=== PATIENT | male | born 1970 | race Caucasian/White ===

== ENCOUNTER → 2016-10-23 | Outpatient (CLI) | payer MEDICARE, OTHER ==
[2014-06-26 07:43] VITALS: BP 143/93
[~2016-10-23] MED LIST: AMOX1TAB11 PO; ASPI-482 PO; CLIN-44 PO; METH5TAB2 PO; OXYC15TA PO; PANT40TA5 PO; SULF1TAB24 PO
[2016-10-23 09:47] LABS: ALBUMIN 3.4 g/dL (3.4-5.0); CALCIUM 9.4 mg/dL (8.5-10.1); CREATININE 0.8 mg/dL (0.7-1.3); GFR 104.1; POTASSIUM 3.8 mmol/L (3.5-5.1)
[2016-10-23 09:51] LABS: BASO # 0.2 x10^3/uL (0.0-0.2); BASO % 1 % (0-3); EOS % 2 % (0-3); HEMATOCRIT 47.5 % (39.0-53.0); LYMPH % 29 % (24-48); MEAN CORPUSCULAR HEMOGLOBIN 31 pg (25-35); MEAN CORPUSCULAR HGB CONC 34 g/dL (31-37); MEAN CORPUSCULAR VOLUME 92 fL (79-100); MONO % 5 % (0-9); NEUT % 63 % (31-73); PLATELET COUNT 361 x10^3/uL (140-400); RED BLOOD COUNT 5.16 x10^6/uL (4.30-5.70); RED CELL DISTRIBUTION WIDTH 14.5 % (11.5-14.5)
[2016-10-23 10:58] LABS: BILIRUBIN,URINE NEGATIVE (NEG); GLUCOSE,URINE >=1000 mg/dL (NEG); NITRITE,URINE NEGATIVE (NEG); PROTEIN,URINE NEGATIVE (NEG-TRACE); UROBILINOGEN,URINE 0.2 mg/dL (0.2 mg/dL)
[2016-10-23 11:20] LABS: BACTERIA,URINE 0 /HPF (0-FEW); RBC,URINE 0 /HPF (0-2); WBC,URINE OCC /HPF (0-4)
[2016-10-23 12:40] LABS: % EOS 4 % (0-5)
[2016-10-23 12:41] LABS: PLT ESTIMATE ADEQUATE (ADEQUATE)
--- NOTE | 2016-10-23 12:43 | EKG ---
[facility] [address] [place] [address] Test Date: 2016-10-23 Test Time: 12:37:54 Pat Name: NICO TRAN Department: Room: Gender: M [employer] Pricer: : 1970 Requested By: NICO DAVIS Order Number: [id number] Reading MD: Measurements Intervals Sawyer Rate: 62 P: 26 NM: 150 QRS: 9 QRSD: 88 T: 59 QT: 384 QTc: 392 Interpretive Statements SINUS RHYTHM QRS(T) CONTOUR ABNORMALITY CONSIDER ANTEROSEPTAL MYOCARDIAL DAMAGE POSSIBLY ABNORMAL ECG RI6.01 No previous ECG available for comparison
--- NOTE | 2016-10-23 17:05 | RAD ---
PA and lateral chest radiographs 10/23/2016 Clinical history: Preoperative evaluation prior to knee replacement. PA and lateral digital radiographs of the chest were obtained. Comparison study is dated 06/07/2014. The cardiac silhouette is normal in size. The thoracic aorta is minimally tortuous. A 6 mm granuloma is seen involving the right midlung, unchanged. No acute pulmonary infiltrate is noted. No pneumothorax or pleural effusion is seen. Degenerative changes are seen involving the thoracic spine. Impression: No acute abnormality is seen.
== END | disposition home or self-care (01) ==
LOC: SURGPAT 12:15
PROVIDERS: ATTEND Orthopaedic Surgery
DX: Z01.818 Encounter for other preprocedural examination (principal); Z87.891 Personal history of nicotine dependence
CPT/HCPCS: 36415; 71020; 80048; 81001; 82040; 85007; 85027; 85610; 85651; 85730; 93005

== ENCOUNTER 2016-11-14 07:10 | Inpatient (IN) | payer MEDICARE, OTHER ==
[~2016-11-14] VITALS: Ht 188 cm; Wt 124.7 kg
[~2016-11-14 07:10] MED LIST changes: -CLIN-44 PO; +CLIN150C14 PO
[2016-12-25] MEDS ORDERED: METF500T4 PO (14:47)
[2016-12-25] MEDS ORDERED: PIOG15TA42 PO (14:47)
[2016-12-25] MEDS ORDERED: CANA300T PO (14:48)
[2016-12-25] MEDS ORDERED: FERR-26 PO (14:49)
--- NOTE | 2017-01-08 13:25 | PDOC1 ---
History and Physical Date of Admission Date of Admission DATE: 01/09/17 Identification/Chief Complaint Chief Complaint Right knee pain Problems: Source Source: Chart review History of Present Illness History of Present Illness The patient is a 46 year old male with right knee osteoarthritis pain, unrelieved with nonoperative treatment. He reports he slipped while moving things for his job on 12/06/16. The pain is in the back of his knee and he rates his pain 7/10. The pain is worsened with contact. He is using crutches to ambulate. He reports difficulty with straightening his leg. He was last seen in the clinic on 10/09/16 to discuss total knee arthroplasty and reported that he stopped smoking. Past Medical History Past Medical History bilateral wrist fracture Cardiovascular: No pertinent hx Pulmonary: No pertinent hx CENTRAL NERVOUS SYSTEM: Other GI: No pertinent hx Heme/Onc: No pertinent hx Hepatobiliary: No pertinent hx Psych: No pertinent hx Musculoskeletal: Other Rheumatologic: No pertinent hx Infectious disease: No pertinent hx Renal/: No pertinent hx Endocrine: Hypothyroidism Past Surgical History Past Surgical History multiple knee surgeries, partial kidney removal, splenectomy, left eye tear duct repair, bone graft of left wrist Past Surgical History: Tonsillectomy, Other Family History Family History: Coronary Artery Disease, Heart Disease Social History Smoke: Quit (09/13/16) ALCOHOL: occassional Drugs: None, Marijuana Current Medications Current Medications Active Scripts Active Reported Ferrous Sulfate 325 Mg Tablet 1 Tab PO DAILY Invokana (Canagliflozin) 300 Mg Tablet 300 Mg PO DAILY Actos (Pioglitazone Hcl) 15 Mg Tablet 1 Tab PO DAILY Metformin Hcl 500 Mg Tablet 500 Mg PO BIDWMEALS Oxycodone Hcl 15 Mg Tablet 20 Mg PO BID Methadone Hcl 5 Mg Tablet 20 Mg PO QID Allergies Allergies: Coded Allergies: ibuprofen (Verified Allergy, Intermediate, urinary retention,swelling, 07/01) Physical Exam General: Alert, Oriented X3, Cooperative, No acute distress HEENT: Atraumatic, EOMI Lungs: Normal air movement Heart: RRR Abdomen: Soft Extremities: No clubbing, No cyanosis, Normal pulses, Other (RIGHT KNEE: Unable to bear weight. There is varus alignment. No masses except for palpable osteophytes. No detectable effusion. Tenderness on the joint lines. Range of motion is 10-80 degrees. There is crepitus with range of motion, and pain at the extremes of motion. The knee is stable to varus and valgus stress without subluxation or laxity. Muscle strength is normal (5/5) for quadriceps and hamstrings, and muscle tone is normal. The skin shows multiple surgical scars including a Y shaped scar converging over the knee and at risk of skin necrosis. This scar includes a long medial parapatellar arthrotomy scar, and another scar extending onto the leg. No rashes or lesions. Light touch sensation is decreased near the incisions. No edema and no varicosities. Dorsalis pedis pulse is intact and capillary refill is normal.) Skin: No rashes, No breakdown, No significant lesion Neuro: Normal speech, Sensation intact Psych/Mental Status: Mental status NL, Mood NL VTE Prophylaxis Ordered VTE Prophylaxis Devices: Yes VTE Pharmacological Prophylaxi: Yes Assessment/Plan Assessment/Plan His knee is now swollen and locked up, possibly with a loose body or other progression of his osteoarthritis and posttraumatic osteoarthritis. We had been holding off on his total knee arthroplasty, to try to get his A1c lower. It was greater than 10 initially. He has been very faithful about controlling his blood sugars and said his blood sugar this morning was 105. He has also stopped smoking as we requested. At this point, I think the best course of action would be to move his total knee arthroplasty up a month or so, so that we can get his knee moving again. Other options would include simply doing a knee scope currently to unlock his knee, but that seems like a waste of resources if we are going to do a knee replacement in a month anyway. Dr. Pitts recommended moving his total knee arthroplasty to January 09, and simply allowing the knee to remain without any aggressive treatment for the current locking and effusion. We will recheck his hemoglobin A1c preoperatively but it is unlikely we will delay his surgery for that alone, and hopefully the A1C is closer to 7 now. He has been taking methadone and oxycodone for pain which will be a risk factor for increased postoperative pain. We discussed the potential risks of infection , neurovascular injury, bleeding, blood clots, need for revision surgery, or other potential surgical or anesthetic complications. JERALD ASKEW Jan 08, 2017 13:25
[2017-01-08] MEDS ORDERED: IV RINGERS,LACTATED 1000ML 1,000 ML IV SCH (19:44)
[2017-01-08] MEDS ORDERED: MEPERIDINE PF 25 MG/ML VIAL. IV PRN (19:45)
[2017-01-08] MEDS ORDERED: MORPHINE SULFATE 4 MG/ML DISP.SYRIN. IV PRN (19:45)
[2017-01-08] MEDS ORDERED: LIDOCAINE 1% 1 ML SYRINGE. ID PRN (19:45)
[2017-01-08] MEDS ORDERED: fentaNYL PF VIAL 100 MCG/2 ML VIAL IV PRN ×3 (19:45)
[2017-01-08] MEDS ORDERED: MIDAZOLAM HCL/PF 2 MG/2 ML VIAL. IV PRN ×2 (19:45)
[2017-01-08] MEDS ORDERED: PROCHLORPERAZINE 10 MG/2 ML VIAL. IV PRN (19:45)
[2017-01-08] MEDS ORDERED: diphenhydrAMINE 50 MG/ML VIAL IV PRN (19:45)
[2017-01-09] MEDS ORDERED: TRANEXAMIC ACID 1,000 MG in IV NS 50ML -- 1ST BAG INJ ONE (06:00)
[2017-01-09] MEDS ORDERED: BACITRACIN 50,000 UNIT in IV NORMAL SALINE 1000ML BAG 1,000 ML IRR ONE (06:00)
[2017-01-09] MEDS ORDERED: HYDROcodone/APAP 7.5/325MG 1 TAB TABLET PO PRN ×2 (06:00→19:15)
[2017-01-09] MEDS ORDERED: TRANEXAMIC ACID 1,000 MG in IV NS 50ML -- 2ND BAG INJ ONE (08:00)
[2017-01-09] MEDS ORDERED: fentaNYL PF VIAL 250 MCG/5 ML VIAL ONE (14:32)
[2017-01-09] MEDS ORDERED: ONDANSETRON PF 4 MG/2 ML VIAL. ONE (14:32)
[2017-01-09] MEDS ORDERED: LIDOCAINE 2% PF Vial for OR 5 ML VIAL. ONE (14:32)
[2017-01-09] MEDS ORDERED: DEXAMETHASONE SOD PHOS 20 MG/5 ML VIAL. ONE (14:32)
[2017-01-09] MEDS ORDERED: PROPOFOL 20 ML IV ONE (14:32)
[2017-01-09] MEDS ORDERED: ROCURONIUM 100 MG/10 ML VIAL. ONE (14:33)
[2017-01-09] MEDS ORDERED: MIDAZOLAM HCL/PF 2 MG/2 ML VIAL. ONE (14:49)
[2017-01-09] MEDS ORDERED: TOBRAMYCIN POWDER 1.2 GM VIAL. ONE (16:00)
[2017-01-09] MEDS ORDERED: VANCOMYCIN 1 GM VIAL. ONE (16:00)
[2017-01-09] MEDS ORDERED: KETAMINE HCL 500 MG/10 ML VIAL. ONE (16:55)
[2017-01-09] MEDS ORDERED: fentaNYL PF VIAL 100 MCG/2 ML VIAL ONE (18:46)
[2017-01-09] MEDS ORDERED: SEVOFLURANE > 120 MINUTES. IH ONE (19:12)
[2017-01-09] MEDS: IV DEXTROSE 5 %-0.45 % NACL 1,000 ML IV SCH (19:14)
[2017-01-09] MEDS ORDERED: PROCHLORPERAZINE 5 MG TABLET. PO PRN (19:15)
[2017-01-09] MEDS ORDERED: oxyCODONE/APAP 5/325 1 TAB TABLET PO PRN (19:15)
[2017-01-09] MEDS ORDERED: HYDROcodone/APAP 10/325 1 TAB TABLET PO PRN (19:15)
[2017-01-09] MEDS ORDERED: CALCIUM CARBONATE 500 MG TAB.CHEW PO PRN (19:15)
[2017-01-09] MEDS ORDERED: fentaNYL PF VIAL 100 MCG/2 ML VIAL IV PRN ×2 (19:15→19:45)
[2017-01-09] MEDS ORDERED: ACETAMINOPHEN 325 MG TABLET. PO PRN (19:15)
[2017-01-09] MEDS ORDERED: MORPHINE SULFATE 4 MG/ML DISP.SYRIN. IV PRN ×2 (19:15)
[2017-01-09] MEDS ORDERED: oxyCODONE/APAP 7.5/325 1 TAB TABLET PO PRN (19:15)
[2017-01-09] MEDS ORDERED: ZOLPIDEM 5 MG TABLET. PO PRN (19:15)
[2017-01-09] MEDS ORDERED: 0.9 % SODIUM CHLORIDE 10 ML DISP.SYRIN. IV PRN (19:15)
[2017-01-09] MEDS ORDERED: DEXTROSE 50% 25 GM / 50ML DISP.SYRIN. IV PRN (19:15)
[2017-01-09] MEDS ORDERED: MORPHINE SULFATE 2 MG/ML DISP.SYRIN. IV PRN (19:15)
[2017-01-09] MEDS ORDERED: METOCLOPRAMIDE HCL 10 MG/2 ML VIAL. IV PRN (19:15)
[2017-01-09] MEDS ORDERED: diphenhydrAMINE 50 MG/ML VIAL IV PRN (19:15)
[2017-01-09] MEDS ORDERED: PROCHLORPERAZINE 10 MG/2 ML VIAL. IV PRN (19:15)
[2017-01-09] MEDS ORDERED: MORPHINE SULFATE 10 MG/ML VIAL. IV PRN (19:15)
[2017-01-09] MEDS: HYDROmorphone 2 MG/ML VIAL IV PRN ×4 (19:20→19:50)
[2017-01-09] MEDS ORDERED: ROPIVacaine 0.5% PF 30 ML VIAL. ONE (19:25)
--- NOTE | 2017-01-09 19:38 | PDOC4 ---
Operative Note Operative Note Date of Procedure: January 09, 2017 Pre-Op Diagnosis: Posttraumatic osteoarthritis right knee Post-Op Diagnosis: Posttraumatic osteoarthritis right knee Procedure: right total knee arthroplasty with hardware removal Surgeon: Nico Pitts MD Encapsulator: Karin Kessler PA-C Anesthesia: General EBL: 250 mL Specimens Obtained: right knee bone and soft tissue Complications: none Implant Company: [employer] Drains: Hemovac plus pain catheter Tourniquet time: 85 Minutes Tourniquet Pressure: 350 mm Hg Indications for Procedure: Arthritis pain unrelieved by nonoperative management. This 46-year-old had a knee injury when he was approximately 18 years old playing baseball. He has had numerous surgeries previously and now has severe posterior medical osteoarthritis with loss of motion, malalignment and severe mechanical difficulties Findings: Severe osteoarthritis with bone on bone contact in all three compartments, and retained hardware with posttraumatic arthropathy Notes: much more complex surgery than usual. Multiple retained previous hardware screws to be removed.abundant scar tissue. The procedure was much longer than usual, more than 50% increased operating time than typical. I did 2 prior knee replacements today with tourniquet times of 50 minutes and 51 minutes , but this complex knee surgery had a tourniquet time of 85 minutes. 85/50 = 1.7 Implants used: Size 6 right bicruciate stabilized Journey II BCS oxinium femoral component, size 7 right Journey nonporous tibial baseplate, size 7-8 21 mm constrained right Journey II BCS XLPE articular insert, 41 mm oval Gali II resurfacing patellar component Procedure in Detail: The patient was identified in the preoperative holding area, and the correct right extremity was marked by me. The patient was taken to the operating room where the patient was anesthetized by the Department of Anesthesia. Preoperative antibiotics were given intravenously. Tranexamic acid 1 g was given intravenously for intraoperative hemostasis. A "time-out" procedure was performed. The patient was positioned supine on the operative table with a tourniquet on the upper thigh. The limb was thoroughly prepped and draped in sterile fashion. An impervious stockinet and adhesive drape were used such that the skin was entirely covered. An Rosas leg chan was used. The operating team wore personal exhaust-ventilated hoods. The tourniquet was inflated to 350 mm Hg. A midline skin incision was made with a scalpel using the patella and tibial tubercle as landmarks. Electrocautery was used for hemostasis. My household assistant used rake retractors. His previous curvilinear medial parapatellar arthrotomy skin incision was used with extension into the distal quadriceps tendon. This curvilinear incision is not ideal but the midline incision that I typically use would cause a skin bridge and be at risk of skin necrosis. The patella was retracted laterally and Hohmann retractors were now used by my household assistant. Excess synovium, the menisci, and the cruciate ligaments were resected sharply. The patella was assessed and excess synovium and osteophytes around the patellar articulation were removed. The patella was measured with a caliper, cut freehand with a saw using caliper measurements, sized, and then drilled for an oval three-pegged patella component. Periarticular injection was used in the suprapatellar pouch and distal quadriceps muscle. Whitesides's line was assessed on the femur. An intra-medullary 5 degree cutting guide was pinned to the femur, and a distal femoral cut was made with an oscillating saw. An additional 4 mm resection was used due to the deep femoral sulcus, and deficient femoral condyle.My household assistant held Hohmann retractors and an [facility] retractor to protect the medial and lateral collateral ligaments, the patellar tendon, the skin and the other soft tissues. An anterior referencing guide was applied with external rotation of 3 to match Whitesides line. A 5-in-1 Journey II cutting guide was then applied and pinned to the femur. The posterior, anterior, and all chamfer cuts were made with the oscillating saw. An extramedullary guide was pinned to the tibia and rotational alignment and the planned resection thickness assessed. An external alignment leif was used to verify the planned cut in the varus-valgus plane and regarding posterior slope referencing the tibial tubercle, the tibial shaft, the ankle joint, and the second metatarsal. The upper tibia was cut made with an oscillating saw. At this point the saw hit one of the retained tibial interference screwsfrom prior surgery. I was unable to complete the cut.I removed the cutting guide, and used osteotomes and drills to expose the screw head. The screw nearly stripped, until I loosened it by drilling parallel to the screw and next to it. The screw was able to finally be removed. I reapplied the tibial guide and was able to complete the tibial cut. Throughout the performance of the tibial cut, my household assistant held Hohmann retractors and a posterior cruciate ligament retractor to protect the medial and lateral collateral ligaments, the patellar tendon, the skin, the peroneal nerve and the other soft tissues. The upper tibia was sized with a trial baseplate. The posterior compartment was cleared of osteophytes and loose bodies, and posterior capsule released. An extremely large posterior loose body was removed, approximately 10 cm in diameter. Charissa- articular injection was used in the posterior compartment. The box cut for a posterior stabilized component was started, and then I encountered another of the previous interference screws. The box cutting instruments were removed. rongeurs and osteotomes were used to expose the screw head. Thefemoral interference screw was removed with a screwdriver. The box cutting instruments were now reapplied. The box cut was completed. A preliminary reduction was performed with a trial femur, trial tibial baseplate and trial polyethylene. Soft-tissue balancing was now performed, and extension and rotation of the alignments was checked using a guide leif in the tibial trial and a guide pin in the femur. A medial release was required, using a 10 blade scalpel, and a Crawford elevator to elevate the medial structures from the upper medial tibia. The stability was assessed using different thicknesses of tibial articular surface to find satisfactory stability and good range of motion. The rotation of the tibial component was marked on the upper tibia. Final trial reduction was now performed verifying patella tracking and tibiofemoral stability and alignment.a lateral patellar release was required. The tibia preparation was completed with a drill, saw, and fin punch at the previously noted rotation. The final implants were verified and opened. Outer gloves were changed by the operating team. The bone cuts were washed thoroughly with the [employer] InterPulse device and dried. Two packages of Palacos bone cement were mixed in powdered form with 1 gm of Vancomycin and 1.2 g tobramycin, then vacuum-mixed with the monomer, and placed into a cement gun. The cut surfaces of the bone were thoroughly dried with Mendoza-tip suction and with laparotomy sponges for cement interdigitation. The final components were cemented into place. The knee was kept at full extension while the cement hardened, and excess cement was removed. Tranexamic acid 1 g was redosed intravenously for additional intraoperative hemostasis. A final periarticular injection was used for pain relief. The tourniquet was released, and electrocautery was used for hemostasis. A final check of [id number] and stability was made, and the polyethylene implant final size was chosen. The polyethylene implant was secured to the tibial baseplate, and the knee was reduced a final time. Thorough irrigation was used. A pain catheter was inserted. The arthrotomy was closed with interrupted [id number] #1 PDS suture. The arthrotomy incision was then run with #1 STRATAFIX Symmetric PDS Plus Knotless suture. The subcutaneous tissues were closed with #2-0 Vicryl by my household assistant. The skin was reapproximated with STRATAFIX Spiral MONOCRYL Plus Knotless suture by my household assistant. The skin incision was then covered and reinforced with Dermabond Prineo mesh skin closure dressing, following the curvilinear prior scar. A bulky sterile gauze dressing was applied. Needle and sponge counts were correct. NICO PITTS MD Jan 09, 2017 19:38
[2017-01-09 20:30] VITALS: BP 144/93
[2017-01-09 21:00] VITALS: BP 139/95
[2017-01-09 21:30] VITALS: BP 144/79
[2017-01-09] MEDS: oxyCODONE IR 5 MG TABLET PO PRN (21:32)
[2017-01-09] MEDS: ASPIRIN ENTERIC COATED 325 MG TABLET.DR. PO SCH (21:55)
[2017-01-09 22:00] VITALS: BP 155/91
[2017-01-09 23:00] VITALS: BP 144/94
[2017-01-09] MEDS: fentaNYL PF VIAL 100 MCG/2 ML VIAL IV PRN (23:24)
[2017-01-10 00:10] VITALS: BP 124/76
[2017-01-10] MEDS: oxyCODONE IR 5 MG TABLET PO PRN ×5 (01:26→20:30)
[2017-01-10] MEDS: fentaNYL PF VIAL 100 MCG/2 ML VIAL IV PRN (03:39)
[2017-01-10 03:42] VITALS: BP 130/82
[2017-01-10 04:55] LABS: HEMATOCRIT 39.1 % (39.0-53.0); HEMOGLOBIN 12.9 g/dL (13.0-17.5); RED BLOOD COUNT 4.21 x10^6/uL (4.30-5.70); RED CELL DISTRIBUTION WIDTH 14.5 % (11.5-14.5); WHITE BLOOD COUNT 25.4 x10^3/uL (4.0-11.0)
[2017-01-10] MEDS: IV DEXTROSE 5 %-0.45 % NACL 1,000 ML IV SCH (05:14)
[2017-01-10] MEDS ORDERED: MAGNESIUM HYDROXIDE 2,400 MG/30 ML ORAL.SUSP. PO PRN (06:00)
--- NOTE | 2017-01-10 07:16 | RAD ---
Indication: Right knee replacement surgery. Time of exam 1950 hours. 2 views of the right knee demonstrate postop changes of total knee arthroplasty. The prosthetic elements appear to be in good position. No fracture or loosening is seen. There appear to be prior postop changes of ACL repair. There are overlying surgical drains noted. Impression: Satisfactory postop appearance to the right knee.
[2017-01-10] MEDS: SENNOSIDES/DOCUSATE 8.6/50MG TABLET. PO SCH (07:51)
[2017-01-10] MEDS: METHADONE 10 MG TABLET. PO SCH ×4 (07:51→20:29)
[2017-01-10] MEDS: FERROUS SULFATE 325 MG TABLET. PO SCH ×2 (07:52→16:24)
[2017-01-10] MEDS: MULTIVITAMIN with MINERAL TABLET. PO SCH (07:52)
[2017-01-10] MEDS: CELECOXIB 200 MG CAPSULE. PO SCH ×2 (07:52→20:29)
--- NOTE | 2017-01-10 08:13 | PDOC ---
GENERAL General: seen and examined. awake and alert. pain manageable. nv right leg intact. hasn' t been up on knee yet but got out of surgery late. chest clear and heart regular and abdomen benign. wbc up to 25K this am. sugars good so far. continue same. Problems: VITAL SIGNS Vital Signs: Vital Signs Date Time Temp Pulse Resp B/P (MAP) Pulse Ox O2 Delivery O2 Flow Rate FiO2 01/10/17 07:51 16 Room Air 01/10/17 03:42 98.4 67 130/82 (98) 98 98.4 01/09/17 20:30 2.0 I & O I & O Intake and Output 01/10/17 06:59 Intake Total 4450 ml Output Total 3960 ml Balance 490 ml Intake Oral 2600 ml IV Total 1850 ml Output Urine Total 3600 ml Drainage Total 110 ml Estimated Blood Loss 250 ml ALLERGIES Allergies: Allergies Coded Allergies Type Severity Reaction Last Updated Verified ibuprofen Allergy Intermediate urinary retention,swelling 01/10/17 Yes MEDS Medications: Current Medications Medications (Trade) Dose Ordered Sig/Casper Start Time Stop Time Status Last Admin Dose Admin Acetaminophen (Tylenol) 650 mg PRN Q4HRS PRN 01/09/17 19:15 Acetaminophen/ Hydrocodone Bitart (Lortab 10/325) 1 tab PRN Q3HRS PRN 01/09/17 19:15 01/10/17 00:36 1 TAB Acetaminophen/ Hydrocodone Bitart (Lortab 7.5/325) 1 tab PRN Q3HRS PRN 01/09/17 19:15 Aspirin (Ecotrin) 325 mg BID 01/09/17 21:00 01/09/17 21:55 325 MG Bacitracin 82837 unit/Sodium Chloride 1,000 ml @ 1,000 mls/hr 1X PERIOP ONCE 01/09/17 06:00 01/09/17 06:59 DC Bisacodyl (Dulcolax Supp) 10 mg 1X PRN PRN 01/10/17 16:00 01/11/17 15:59 Calcium Carbonate/ Glycine (Tums) 500 mg PRN QID PRN 01/09/17 19:15 Cefazolin Sodium 3 gm/Sodium Chloride 100 ml @ 200 mls/hr Q6H 01/09/17 22:00 01/10/17 10:29 01/10/17 04:00 200 MLS/HR Cefazolin Sodium/ Dextrose 50 ml @ 100 mls/hr 1X PREOP PRN 01/09/17 06:00 01/09/17 18:00 DC 01/09/17 16:21 100 MLS/HR Celecoxib (CeleBREX) 200 mg BID 01/10/17 09:00 01/10/17 07:52 200 MG Dexamethasone Sodium Phosphate (Decadron) 20 mg STK-MED ONCE 01/09/17 14:32 01/09/17 14:33 DC Dextrose (Dextrose 50%-Water Syringe) 12.5 gm PRN Q15MIN PRN 01/09/17 19:15 Dextrose/Sodium Chloride 1,000 ml @ 100 mls/hr Q10H 01/09/17 19:14 01/09/17 19:14 100 MLS/HR Diphenhydramine HCl (Benadryl) 25 mg PRN Q6HRS PRN 01/09/17 19:15 Fentanyl Citrate (Fentanyl 2ml Vial) 75 mcg PRN Q1HR PRN 01/09/17 19:45 Fentanyl Citrate (Fentanyl 5ml Vial) 250 mcg STK-MED ONCE 01/09/17 14:32 01/09/17 14:33 DC Ferrous Sulfate (Feosol) 325 mg BIDWMEALS 01/10/17 08:00 01/10/17 07:52 325 MG Hydromorphone HCl (Dilaudid) 0.4 mg PRN Q10MIN PRN 01/08/17 19:45 01/09/17 22:00 DC 01/09/17 19:50 0.5 MG Ketamine HCl 500 mg STK-MED ONCE 01/09/17 16:55 01/09/17 16:56 DC Ketorolac Tromethamine 30 mg/Bupivacaine HCl 20 ml/ Epinephrine HCl 0.5 mg/ Miscellaneous 43 ml @ 258 mls/hr Q12H 01/10/17 06:00 01/10/17 18:09 Lidocaine HCl (Lidocaine Pf 2% Vial) 5 ml STK-MED ONCE 01/09/17 14:32 01/09/17 14:33 DC Magnesium Hydroxide (Milk Of Magnesia) 2,400 mg 1X PRN PRN 01/10/17 06:00 01/11/17 05:59 Meperidine HCl (Demerol) 12.5 mg PRN Q5MIN PRN 01/08/17 19:45 01/09/17 22:00 DC Metformin HCl (Glucophage) 500 mg BIDWMEALS 01/10/17 08:30 Methadone HCl (Dolophine) 20 mg QID 01/10/17 09:00 01/10/17 07:51 20 MG Metoclopramide HCl (Reglan) 10 mg PRN Q4HRS PRN 01/09/17 19:15 Midazolam HCl (Versed) 2 mg STK-MED ONCE 01/09/17 14:49 01/09/17 14:50 DC Morphine Sulfate 8 mg PRN Q1HR PRN 01/09/17 19:15 Morphine Sulfate 5 mg/Ropivacaine 60 ml/Epinephrine HCl 0.5 mg/Sodium Chloride 99 ml @ 99 mls/hr 1X PERIOP ONCE 01/09/17 06:00 01/09/17 06:59 DC 01/09/17 16:50 Multivitamins (Thera M Plus) 1 tab DAILY 01/10/17 09:00 01/10/17 07:52 1 TAB Non-Formulary Medication 300 mg DAILY 01/10/17 09:00 UNV Ondansetron HCl (Zofran) 4 mg STK-MED ONCE 01/09/17 14:32 01/09/17 14:33 DC Oxycodone HCl (Roxicodone) 20 mg PRN Q4HRS PRN 01/09/17 16:00 01/10/17 07:51 20 MG Oxycodone/ Acetaminophen (Percocet 5/325) 1 tab PRN Q3HRS PRN 01/09/17 19:15 Oxycodone/ Acetaminophen (Percocet 7.5/ 325) 1 tab PRN Q3HRS PRN 01/09/17 19:15 Pioglitazone HCl (Actos) 15 mg DAILY 01/10/17 09:00 Prochlorperazine Edisylate (Compazine) 10 mg PRN Q4HRS PRN 01/09/17 19:15 Prochlorperazine Maleate (Compazine) 10 mg PRN Q4HRS PRN 01/09/17 19:15 Propofol 20 ml @ As Directed STK-MED ONCE 01/09/17 14:32 01/09/17 14:33 DC Ringer's Solution 1,000 ml @ 125 mls/hr Q8H 01/08/17 19:44 01/09/17 07:43 DC 01/09/17 14:43 125 MLS/HR Rocuronium [place] (Zemuron) 100 mg STK-MED ONCE 01/09/17 14:33 01/09/17 14:34 DC Ropivacaine (Naropin 0.5%) 30 ml STK-MED ONCE 01/09/17 19:25 01/09/17 19:26 DC Senna/Docusate Sodium (Senna Plus) 1 tab DAILY 01/10/17 09:00 01/10/17 07:51 1 TAB Sevoflurane (Ultane) 90 ml STK-MED ONCE 01/09/17 19:12 01/09/17 19:13 DC Sodium Chloride (Normal Saline Flush) 10 ml QSHIFT PRN 01/09/17 19:15 Tobramycin Sulfate 1.2 gm STK-MED ONCE 01/09/17 16:00 01/09/17 16:01 DC 01/09/17 16:50 1.2 GM Tranexamic Acid 1000 mg/Sodium Chloride 60 ml @ 60 mls/hr 1X PERIOP ONCE 01/09/17 08:00 01/09/17 08:59 DC 01/09/17 18:14 60 MLS/HR Vancomycin HCl 1 gm STK-MED ONCE 01/09/17 16:00 01/09/17 16:01 DC 01/09/17 16:50 1 GM Zolpidem Tartrate (Ambien) 5 mg PRN QHS PRN 01/09/17 19:15 LAB Lab: Laboratory Tests Test 01/09/17 14:28 01/09/17 19:23 01/09/17 21:10 01/10/17 04:10 Glucose (Fingerstick) 90 mg/dL (70-99) 173 mg/dL (70-99) 175 mg/dL (70-99) White Blood Count 25.4 x10^3/uL (4.0-11.0) Red Blood Count 4.21 x10^6/uL (4.30-5.70) Hemoglobin 12.9 g/dL (13.0-17.5) Hematocrit 39.1 % (39.0-53.0) Mean Corpuscular Volume 93 fL (79-100) Mean Corpuscular Hemoglobin 31 pg (25-35) Mean Corpuscular Hemoglobin Concent 33 g/dL (31-37) Red Cell Distribution Width 14.5 % (11.5-14.5) Platelet Count 286 x10^3/uL (140-400) Test 01/10/17 07:27 Glucose (Fingerstick) 99 mg/dL (70-99) SEAN GUERRA MD Jan 10, 2017 08:13
[2017-01-10] MEDS: ASPIRIN ENTERIC COATED 325 MG TABLET.DR. PO SCH ×2 (09:00→20:32)
[2017-01-10] MEDS: PIOGLITAZONE 15 MG TABLET. PO SCH (09:27)
[2017-01-10] MEDS: metFORMIN 500 MG TABLET PO SCH ×2 (09:27→16:24)
--- NOTE | 2017-01-10 10:19 | PDOC ---
PROGRESS NOTES Subjective Subjective Some pain as expected. Adjusting pain meds. Objective Vital Signs Vital Signs Date Time Temp Pulse Resp B/P (MAP) Pulse Ox O2 Delivery O2 Flow Rate FiO2 01/10/17 09:00 18 Room Air 01/10/17 03:42 98.4 67 130/82 (98) 98 98.4 01/09/17 20:30 2.0 Physical Exam Dressing dry. Pain catheter and Hemovac in place. Good dorsiflexion and plantarflexion of the foot with no evidence of neurovascular injury or DVT. Calves are soft and non-tender. Negative Homans. Peripheral pulses and light touch sensation intact. Labs Laboratory Tests Test 01/09/17 14:28 01/09/17 19:23 01/09/17 21:10 01/10/17 04:10 Glucose (Fingerstick) 90 mg/dL (70-99) 173 mg/dL (70-99) 175 mg/dL (70-99) White Blood Count 25.4 x10^3/uL (4.0-11.0) Red Blood Count 4.21 x10^6/uL (4.30-5.70) Hemoglobin 12.9 g/dL (13.0-17.5) Hematocrit 39.1 % (39.0-53.0) Mean Corpuscular Volume 93 fL (79-100) Mean Corpuscular Hemoglobin 31 pg (25-35) Mean Corpuscular Hemoglobin Concent 33 g/dL (31-37) Red Cell Distribution Width 14.5 % (11.5-14.5) Platelet Count 286 x10^3/uL (140-400) Test 01/10/17 07:27 Glucose (Fingerstick) 99 mg/dL (70-99) Laboratory Tests Test 01/09/17 14:28 01/09/17 19:23 01/09/17 21:10 01/10/17 04:10 Glucose (Fingerstick) 90 mg/dL (70-99) 173 mg/dL (70-99) 175 mg/dL (70-99) White Blood Count 25.4 x10^3/uL (4.0-11.0) Red Blood Count 4.21 x10^6/uL (4.30-5.70) Hemoglobin 12.9 g/dL (13.0-17.5) Hematocrit 39.1 % (39.0-53.0) Mean Corpuscular Volume 93 fL (79-100) Mean Corpuscular Hemoglobin 31 pg (25-35) Mean Corpuscular Hemoglobin Concent 33 g/dL (31-37) Red Cell Distribution Width 14.5 % (11.5-14.5) Platelet Count 286 x10^3/uL (140-400) Test 01/10/17 07:27 Glucose (Fingerstick) 99 mg/dL (70-99) Imaging Postoperative x-rays reviewed by me, showing satisfactory total knee replacement , with no apparent complications. Assessment Assessment POD #1 TKA Problems: Plan Plan of Care Continue POC including DVT prophylaxis and physical therapy. Adjust pain meds. NICO DAVIS MD Jan 10, 2017 10:18
[2017-01-10] MEDS ORDERED: BISACODYL 10 MG SUPP.RECT. PR PRN (16:00)
[2017-01-10 18:04] VITALS: BP 148/88
[2017-01-11] MEDS: oxyCODONE IR 5 MG TABLET PO PRN ×5 (00:45→21:05)
[2017-01-11 06:36] VITALS: BP 144/96
[2017-01-11] MEDS: FERROUS SULFATE 325 MG TABLET. PO SCH ×2 (08:06→18:10)
[2017-01-11] MEDS: CELECOXIB 200 MG CAPSULE. PO SCH ×2 (08:06→21:00)
[2017-01-11] MEDS: metFORMIN 500 MG TABLET PO SCH ×2 (08:06→18:10)
[2017-01-11] MEDS: PIOGLITAZONE 15 MG TABLET. PO SCH (08:06)
[2017-01-11] MEDS: MULTIVITAMIN with MINERAL TABLET. PO SCH (08:07)
[2017-01-11] MEDS: SENNOSIDES/DOCUSATE 8.6/50MG TABLET. PO SCH (08:07)
[2017-01-11] MEDS: METHADONE 10 MG TABLET. PO SCH ×4 (08:07→18:13)
[2017-01-11] MEDS: ASPIRIN ENTERIC COATED 325 MG TABLET.DR. PO SCH ×2 (08:07→21:00)
[2017-01-11 09:10] LABS: HEMATOCRIT 38.7 % (39.0-53.0); HEMOGLOBIN 12.8 g/dL (13.0-17.5)
--- NOTE | 2017-01-11 12:35 | PDOC ---
PROGRESS NOTES Subjective Subjective Doing well. States pain is better today. He has had some drainage from distal portion of incision. Additional Dermabond was applied to distal end of Prineo yesterday. Objective Vital Signs Vital Signs Date Time Temp Pulse Resp B/P (MAP) Pulse Ox O2 Delivery O2 Flow Rate FiO2 01/11/17 06:36 98.8 76 16 144/96 (112) 99 Room Air 98.8 01/09/17 20:30 2.0 Physical Exam Expected swelling. Pain catheter and drain have been removed. Incision covered with compression dressing. Dressing dry and intact. Calf soft and nontender. Negative Homans sign. Good AROM ankle. Peripheral pulses and light touch sensation intact. Labs Laboratory Tests Test 01/09/17 14:28 01/09/17 19:23 01/09/17 21:10 01/10/17 04:10 Glucose (Fingerstick) 90 mg/dL (70-99) 173 mg/dL (70-99) 175 mg/dL (70-99) White Blood Count 25.4 x10^3/uL (4.0-11.0) Red Blood Count 4.21 x10^6/uL (4.30-5.70) Hemoglobin 12.9 g/dL (13.0-17.5) Hematocrit 39.1 % (39.0-53.0) Mean Corpuscular Volume 93 fL (79-100) Mean Corpuscular Hemoglobin 31 pg (25-35) Mean Corpuscular Hemoglobin Concent 33 g/dL (31-37) Red Cell Distribution Width 14.5 % (11.5-14.5) Platelet Count 286 x10^3/uL (140-400) Test 01/10/17 07:27 01/10/17 11:31 01/10/17 16:36 01/10/17 21:10 Glucose (Fingerstick) 99 mg/dL (70-99) 123 mg/dL (70-99) 115 mg/dL (70-99) 147 mg/dL (70-99) Test 01/11/17 07:45 Hemoglobin 12.8 g/dL (13.0-17.5) Hematocrit 38.7 % (39.0-53.0) Mean Corpuscular Hemoglobin Concent 33 g/dL (31-37) Laboratory Tests Test 01/10/17 16:36 01/10/17 21:10 01/11/17 07:45 Glucose (Fingerstick) 115 mg/dL (70-99) 147 mg/dL (70-99) Hemoglobin 12.8 g/dL (13.0-17.5) Hematocrit 38.7 % (39.0-53.0) Mean Corpuscular Hemoglobin Concent 33 g/dL (31-37) Assessment Assessment POD 2 TKA Problems: Plan Plan of Care Continue DVT prophylaxis and physical therapy. Planned discharge tomorrow to home with outpatient therapy. Office F/U in 10-14 days. JERALD ASKEW Jan 11, 2017 12:35
[2017-01-11 18:14] VITALS: BP 136/82
--- NOTE | 2017-01-11 19:21 | PDOC ---
GENERAL General: vss and afebrile. awake and alert. pain seems better than preop. exam stable. will recheck cbc with leukocytosis earlier in stay. Problems: VITAL SIGNS Vital Signs: Vital Signs Date Time Temp Pulse Resp B/P (MAP) Pulse Ox O2 Delivery O2 Flow Rate FiO2 01/11/17 18:14 98.3 98 16 136/82 (100) 97 Room Air 98.3 I & O I & O Intake and Output 01/11/17 07:00 Intake Total 703 ml Output Total 1755 ml Balance -1052 ml Intake Oral 560 ml IV Total 143 ml Output Urine Total 1425 ml Drainage Total 330 ml # Voids 4 ALLERGIES Allergies: Allergies Coded Allergies Type Severity Reaction Last Updated Verified ibuprofen Allergy Intermediate urinary retention,swelling 01/10/17 Yes MEDS Medications: Current Medications Medications (Trade) Dose Ordered Sig/[place] Start Time Stop Time Status Last Admin Dose Admin Acetaminophen (Tylenol) 650 mg PRN Q4HRS PRN 01/09/17 19:15 Acetaminophen/ Hydrocodone Bitart (Lortab 10/325) 1 tab PRN Q3HRS PRN 01/09/17 19:15 01/10/17 00:36 1 TAB Acetaminophen/ Hydrocodone Bitart (Lortab 7.5/325) 1 tab PRN Q3HRS PRN 01/09/17 19:15 Aspirin (Ecotrin) 325 mg BID 01/09/17 21:00 01/11/17 08:07 325 MG Bacitracin 20266 unit/Sodium Chloride 1,000 ml @ 1,000 mls/hr 1X PERIOP ONCE 01/09/17 06:00 01/09/17 06:59 DC Bisacodyl (Dulcolax Supp) 10 mg 1X PRN PRN 01/10/17 16:00 01/11/17 15:59 DC Calcium Carbonate/ Glycine (Tums) 500 mg PRN QID PRN 01/09/17 19:15 Cefazolin Sodium 3 gm/Sodium Chloride 100 ml @ 200 mls/hr Q6H 01/09/17 22:00 01/10/17 10:29 DC 01/10/17 12:25 200 MLS/HR Cefazolin Sodium/ Dextrose 50 ml @ 100 mls/hr 1X PREOP PRN 01/09/17 06:00 01/09/17 18:00 DC 01/09/17 16:21 100 MLS/HR Celecoxib (CeleBREX) 200 mg BID 01/10/17 09:00 01/11/17 08:06 200 MG Dexamethasone Sodium Phosphate (Decadron) 20 mg STK-MED ONCE 01/09/17 14:32 01/09/17 14:33 DC Dextrose (Dextrose 50%-Water Syringe) 12.5 gm PRN Q15MIN PRN 01/09/17 19:15 Dextrose/Sodium Chloride 1,000 ml @ 100 mls/hr Q10H 01/09/17 19:14 01/10/17 10:44 DC 01/09/17 19:14 100 MLS/HR Diphenhydramine HCl (Benadryl) 25 mg PRN Q6HRS PRN 01/09/17 19:15 Fentanyl Citrate (Fentanyl 2ml Vial) 75 mcg PRN Q1HR PRN 01/09/17 19:45 Fentanyl Citrate (Fentanyl 5ml Vial) 250 mcg STK-MED ONCE 01/09/17 14:32 01/09/17 14:33 DC Ferrous Sulfate (Feosol) 325 mg BIDWMEALS 01/10/17 08:00 01/11/17 18:10 325 MG Hydromorphone HCl (Dilaudid) 0.4 mg PRN Q10MIN PRN 01/08/17 19:45 01/09/17 22:00 DC 01/09/17 19:50 0.5 MG Ketamine HCl 500 mg STK-MED ONCE 01/09/17 16:55 01/09/17 16:56 DC Ketorolac Tromethamine 30 mg/Bupivacaine HCl 20 ml/ Epinephrine HCl 0.5 mg/ Miscellaneous 43 ml @ 258 mls/hr Q12H 01/10/17 06:00 01/10/17 18:09 DC 01/10/17 17:31 258 MLS/HR Lidocaine HCl (Lidocaine Pf 2% Vial) 5 ml STK-MED ONCE 01/09/17 14:32 01/09/17 14:33 DC Magnesium Hydroxide (Milk Of Magnesia) 2,400 mg 1X PRN PRN 01/10/17 06:00 01/11/17 05:59 DC Meperidine HCl (Demerol) 12.5 mg PRN Q5MIN PRN 01/08/17 19:45 01/09/17 22:00 DC Metformin HCl (Glucophage) 500 mg BIDWMEALS 01/10/17 08:30 01/11/17 18:10 500 MG Methadone HCl (Dolophine) 20 mg DAILY@1400,1800 01/11/17 14:00 01/11/17 18:13 20 MG Metoclopramide HCl (Reglan) 10 mg PRN Q4HRS PRN 01/09/17 19:15 Midazolam HCl (Versed) 2 mg STK-MED ONCE 01/09/17 14:49 01/09/17 14:50 DC Morphine Sulfate 8 mg PRN Q1HR PRN 01/09/17 19:15 Morphine Sulfate 5 mg/Ropivacaine 60 ml/Epinephrine HCl 0.5 mg/Sodium Chloride 99 ml @ 99 mls/hr 1X PERIOP ONCE 01/09/17 06:00 01/09/17 06:59 DC 01/09/17 16:50 Multivitamins (Thera M Plus) 1 tab DAILY 01/10/17 09:00 01/11/17 08:07 1 TAB Non-Formulary Medication 300 mg DAILY 01/10/17 09:00 01/11/17 08:08 300 MG Ondansetron HCl (Zofran) 4 mg STK-MED ONCE 01/09/17 14:32 01/09/17 14:33 DC Oxycodone HCl (Roxicodone) 40 mg PRN Q4HRS PRN 01/10/17 10:45 01/11/17 16:22 40 MG Oxycodone/ Acetaminophen (Percocet 5/325) 1 tab PRN Q3HRS PRN 01/09/17 19:15 Oxycodone/ Acetaminophen (Percocet 7.5/ 325) 1 tab PRN Q3HRS PRN 01/09/17 19:15 Pioglitazone HCl (Actos) 15 mg DAILY 01/10/17 09:00 01/11/17 08:06 15 MG Prochlorperazine Edisylate (Compazine) 10 mg PRN Q4HRS PRN 01/09/17 19:15 Prochlorperazine Maleate (Compazine) 10 mg PRN Q4HRS PRN 01/09/17 19:15 Propofol 20 ml @ As Directed STK-MED ONCE 01/09/17 14:32 01/09/17 14:33 DC Ringer's Solution 1,000 ml @ 125 mls/hr Q8H 01/08/17 19:44 01/09/17 07:43 DC 01/09/17 14:43 125 MLS/HR Rocuronium [place] (Zemuron) 100 mg STK-MED ONCE 01/09/17 14:33 01/09/17 14:34 DC Ropivacaine (Naropin 0.5%) 30 ml STK-MED ONCE 01/09/17 19:25 01/09/17 19:26 DC Senna/Docusate Sodium (Senna Plus) 1 tab DAILY 01/10/17 09:00 01/11/17 08:07 1 TAB Sevoflurane (Ultane) 90 ml STK-MED ONCE 01/09/17 19:12 01/09/17 19:13 DC Sodium Chloride (Normal Saline Flush) 10 ml QSHIFT PRN 01/09/17 19:15 Tobramycin Sulfate 1.2 gm STK-MED ONCE 01/09/17 16:00 01/09/17 16:01 DC 01/09/17 16:50 1.2 GM Tranexamic Acid 1000 mg/Sodium Chloride 60 ml @ 60 mls/hr 1X PERIOP ONCE 01/09/17 08:00 01/09/17 08:59 DC 01/09/17 18:14 60 MLS/HR Vancomycin HCl 1 gm STK-MED ONCE 01/09/17 16:00 01/09/17 16:01 DC 01/09/17 16:50 1 GM Zolpidem Tartrate (Ambien) 5 mg PRN QHS PRN 01/09/17 19:15 LAB Lab: Laboratory Tests Test 01/10/17 21:10 01/11/17 05:52 01/11/17 07:45 01/11/17 11:09 Glucose (Fingerstick) 147 mg/dL (70-99) 124 mg/dL (70-99) 102 mg/dL (70-99) Hemoglobin 12.8 g/dL (13.0-17.5) Hematocrit 38.7 % (39.0-53.0) Mean Corpuscular Hemoglobin Concent 33 g/dL (31-37) Test 01/11/17 16:35 Glucose (Fingerstick) 103 mg/dL (70-99) SEAN GUERRA MD Jan 11, 2017 19:21
[2017-01-12] MEDS: oxyCODONE IR 5 MG TABLET PO PRN ×4 (03:35→16:16)
[2017-01-12] MEDS: METHADONE 10 MG TABLET. PO SCH ×3 (06:01→15:05)
[2017-01-12 06:09] LABS: BASO # 0.1 x10^3/uL (0.0-0.2); BASO % 0 % (0-3); EOS % 2 % (0-3); HEMOGLOBIN 12.9 g/dL (13.0-17.5); LYMPH # 5.4 x10^3/uL (1.0-4.8); LYMPH % 28 % (24-48); MEAN CORPUSCULAR HEMOGLOBIN 31 pg (25-35); MEAN CORPUSCULAR HGB CONC 34 g/dL (31-37); MEAN CORPUSCULAR VOLUME 91 fL (79-100); MONO % 9 % (0-9); NEUT % 61 % (31-73); PLATELET COUNT 272 x10^3/uL (140-400); RED BLOOD COUNT 4.18 x10^6/uL (4.30-5.70); RED CELL DISTRIBUTION WIDTH 14.3 % (11.5-14.5); WHITE BLOOD COUNT 19.4 x10^3/uL (4.0-11.0)
[2017-01-12 06:56] VITALS: BP 124/78
[2017-01-12] MEDS: FERROUS SULFATE 325 MG TABLET. PO SCH (07:26)
[2017-01-12] MEDS: metFORMIN 500 MG TABLET PO SCH (07:26)
[2017-01-12] MEDS: CELECOXIB 200 MG CAPSULE. PO SCH (08:21)
[2017-01-12] MEDS: PIOGLITAZONE 15 MG TABLET. PO SCH (08:22)
[2017-01-12] MEDS: MULTIVITAMIN with MINERAL TABLET. PO SCH (08:22)
[2017-01-12] MEDS: SENNOSIDES/DOCUSATE 8.6/50MG TABLET. PO SCH (08:22)
[2017-01-12] MEDS: ASPIRIN ENTERIC COATED 325 MG TABLET.DR. PO SCH (08:22)
--- NOTE | 2017-01-12 08:36 | PDOC ---
GENERAL General: vss and afebrile. awake and alert. better day in therapy yesterday. leg stable. wbc down to 19K and reports this am has history of elevated wbc for years. expect dc today with outpatient therapy. Problems: VITAL SIGNS Vital Signs: Vital Signs Date Time Temp Pulse Resp B/P (MAP) Pulse Ox O2 Delivery O2 Flow Rate FiO2 01/12/17 07:26 Room Air 01/12/17 06:56 98.4 75 18 124/78 (93) 98 98.4 I & O I & O Intake and Output 01/12/17 07:00 Intake Total 2600 ml Output Total 1000 ml Balance 1600 ml Intake Oral 2600 ml Output Urine Total 1000 ml # Voids 2 ALLERGIES Allergies: Allergies Coded Allergies Type Severity Reaction Last Updated Verified ibuprofen Allergy Intermediate urinary retention,swelling 01/10/17 Yes MEDS Medications: Current Medications Medications (Trade) Dose Ordered Sig/[place] Start Time Stop Time Status Last Admin Dose Admin Acetaminophen (Tylenol) 650 mg PRN Q4HRS PRN 01/09/17 19:15 Acetaminophen/ Hydrocodone Bitart (Lortab 10/325) 1 tab PRN Q3HRS PRN 01/09/17 19:15 01/10/17 00:36 1 TAB Acetaminophen/ Hydrocodone Bitart (Lortab 7.5/325) 1 tab PRN Q3HRS PRN 01/09/17 19:15 Aspirin (Ecotrin) 325 mg BID 01/09/17 21:00 01/12/17 08:22 325 MG Bacitracin 30872 unit/Sodium Chloride 1,000 ml @ 1,000 mls/hr 1X PERIOP ONCE 01/09/17 06:00 01/09/17 06:59 DC Bisacodyl (Dulcolax Supp) 10 mg 1X PRN PRN 01/10/17 16:00 01/11/17 15:59 DC Calcium Carbonate/ Glycine (Tums) 500 mg PRN QID PRN 01/09/17 19:15 Cefazolin Sodium 3 gm/Sodium Chloride 100 ml @ 200 mls/hr Q6H 01/09/17 22:00 01/10/17 10:29 DC 01/10/17 12:25 200 MLS/HR Cefazolin Sodium/ Dextrose 50 ml @ 100 mls/hr 1X PREOP PRN 01/09/17 06:00 01/09/17 18:00 DC 01/09/17 16:21 100 MLS/HR Celecoxib (CeleBREX) 200 mg BID 01/10/17 09:00 01/12/17 08:21 200 MG Dexamethasone Sodium Phosphate (Decadron) 20 mg STK-MED ONCE 01/09/17 14:32 01/09/17 14:33 DC Dextrose (Dextrose 50%-Water Syringe) 12.5 gm PRN Q15MIN PRN 01/09/17 19:15 Dextrose/Sodium Chloride 1,000 ml @ 100 mls/hr Q10H 01/09/17 19:14 01/10/17 10:44 DC 01/09/17 19:14 100 MLS/HR Diphenhydramine HCl (Benadryl) 25 mg PRN Q6HRS PRN 01/09/17 19:15 Fentanyl Citrate (Fentanyl 2ml Vial) 75 mcg PRN Q1HR PRN 01/09/17 19:45 Fentanyl Citrate (Fentanyl 5ml Vial) 250 mcg STK-MED ONCE 01/09/17 14:32 01/09/17 14:33 DC Ferrous Sulfate (Feosol) 325 mg BIDWMEALS 01/10/17 08:00 01/12/17 07:26 325 MG Hydromorphone HCl (Dilaudid) 0.4 mg PRN Q10MIN PRN 01/08/17 19:45 01/09/17 22:00 DC 01/09/17 19:50 0.5 MG Ketamine HCl 500 mg STK-MED ONCE 01/09/17 16:55 01/09/17 16:56 DC Ketorolac Tromethamine 30 mg/Bupivacaine HCl 20 ml/ Epinephrine HCl 0.5 mg/ Miscellaneous 43 ml @ 258 mls/hr Q12H 01/10/17 06:00 01/10/17 18:09 DC 01/10/17 17:31 258 MLS/HR Lidocaine HCl (Lidocaine Pf 2% Vial) 5 ml STK-MED ONCE 01/09/17 14:32 01/09/17 14:33 DC Magnesium Hydroxide (Milk Of Magnesia) 2,400 mg 1X PRN PRN 01/10/17 06:00 01/11/17 05:59 DC Meperidine HCl (Demerol) 12.5 mg PRN Q5MIN PRN 01/08/17 19:45 01/09/17 22:00 DC Metformin HCl (Glucophage) 500 mg BIDWMEALS 01/10/17 08:30 01/12/17 07:26 500 MG Methadone HCl (Dolophine) 20 mg DAILY@1400,1800 01/11/17 14:00 01/11/17 18:13 20 MG Metoclopramide HCl (Reglan) 10 mg PRN Q4HRS PRN 01/09/17 19:15 Midazolam HCl (Versed) 2 mg STK-MED ONCE 01/09/17 14:49 01/09/17 14:50 DC Morphine Sulfate 8 mg PRN Q1HR PRN 01/09/17 19:15 Morphine Sulfate 5 mg/Ropivacaine 60 ml/Epinephrine HCl 0.5 mg/Sodium Chloride 99 ml @ 99 mls/hr 1X PERIOP ONCE 01/09/17 06:00 01/09/17 06:59 DC 01/09/17 16:50 Multivitamins (Thera M Plus) 1 tab DAILY 01/10/17 09:00 01/12/17 08:22 1 TAB Non-Formulary Medication 300 mg DAILY 01/10/17 09:00 01/12/17 08:22 300 MG Ondansetron HCl (Zofran) 4 mg STK-MED ONCE 01/09/17 14:32 01/09/17 14:33 DC Oxycodone HCl (Roxicodone) 40 mg PRN Q4HRS PRN 01/10/17 10:45 01/12/17 07:26 40 MG Oxycodone/ Acetaminophen (Percocet 5/325) 1 tab PRN Q3HRS PRN 01/09/17 19:15 Oxycodone/ Acetaminophen (Percocet 7.5/ 325) 1 tab PRN Q3HRS PRN 01/09/17 19:15 Pioglitazone HCl (Actos) 15 mg DAILY 01/10/17 09:00 01/12/17 08:22 15 MG Prochlorperazine Edisylate (Compazine) 10 mg PRN Q4HRS PRN 01/09/17 19:15 Prochlorperazine Maleate (Compazine) 10 mg PRN Q4HRS PRN 01/09/17 19:15 Propofol 20 ml @ As Directed STK-MED ONCE 01/09/17 14:32 01/09/17 14:33 DC Ringer's Solution 1,000 ml @ 125 mls/hr Q8H 01/08/17 19:44 01/09/17 07:43 DC 01/09/17 14:43 125 MLS/HR Rocuronium [place] (Zemuron) 100 mg STK-MED ONCE 01/09/17 14:33 01/09/17 14:34 DC Ropivacaine (Naropin 0.5%) 30 ml STK-MED ONCE 01/09/17 19:25 01/09/17 19:26 DC Senna/Docusate Sodium (Senna Plus) 1 tab DAILY 01/10/17 09:00 01/12/17 08:22 1 TAB Sevoflurane (Ultane) 90 ml STK-MED ONCE 01/09/17 19:12 01/09/17 19:13 DC Sodium Chloride (Normal Saline Flush) 10 ml QSHIFT PRN 01/09/17 19:15 Tobramycin Sulfate 1.2 gm STK-MED ONCE 01/09/17 16:00 01/09/17 16:01 DC 01/09/17 16:50 1.2 GM Tranexamic Acid 1000 mg/Sodium Chloride 60 ml @ 60 mls/hr 1X PERIOP ONCE 01/09/17 08:00 01/09/17 08:59 DC 01/09/17 18:14 60 MLS/HR Vancomycin HCl 1 gm STK-MED ONCE 01/09/17 16:00 01/09/17 16:01 DC 01/09/17 16:50 1 GM Zolpidem Tartrate (Ambien) 5 mg PRN QHS PRN 01/09/17 19:15 LAB Lab: Laboratory Tests Test 01/11/17 11:09 01/11/17 16:35 01/11/17 21:08 01/12/17 05:59 Glucose (Fingerstick) 102 mg/dL (70-99) 103 mg/dL (70-99) 137 mg/dL (70-99) White Blood Count 19.4 x10^3/uL (4.0-11.0) Red Blood Count 4.18 x10^6/uL (4.30-5.70) Hemoglobin 12.9 g/dL (13.0-17.5) Hematocrit 38.0 % (39.0-53.0) Mean Corpuscular Volume 91 fL (79-100) Mean Corpuscular Hemoglobin 31 pg (25-35) Mean Corpuscular Hemoglobin Concent 34 g/dL (31-37) Red Cell Distribution Width 14.3 % (11.5-14.5) Platelet Count 272 x10^3/uL (140-400) Neutrophils (%) (Auto) 61 % (31-73) Lymphocytes (%) (Auto) 28 % (24-48) Monocytes (%) (Auto) 9 % (0-9) Eosinophils (%) (Auto) 2 % (0-3) Basophils (%) (Auto) 0 % (0-3) Neutrophils # (Auto) 11.8 x10^3uL (1.8-7.7) Lymphocytes # (Auto) 5.4 x10^3/uL (1.0-4.8) Monocytes # (Auto) 1.8 x10^3/uL (0.0-1.1) Eosinophils # (Auto) 0.4 x10^3/uL (0.0-0.7) Basophils # (Auto) 0.1 x10^3/uL (0.0-0.2) Test 01/12/17 06:48 Glucose (Fingerstick) 124 mg/dL (70-99) SEAN GUERRA MD Jan 12, 2017 08:36
[2017-01-12 11:37] VITALS: BP 144/84
--- NOTE | 2017-01-12 13:31 | PDOC ---
PROGRESS NOTES Subjective Subjective Doing well. Planning for discharge later today after PT. Objective Vital Signs Vital Signs Date Time Temp Pulse Resp B/P (MAP) Pulse Ox O2 Delivery O2 Flow Rate FiO2 01/12/17 12:44 Room Air 01/12/17 11:37 98.4 77 16 144/84 (104) 94 98.4 01/09/17 20:30 2.0 Physical Exam Expected swelling. Prineo dressing intact. Minimal bloody drainage to distal end of incision. Dressing changed. Calf soft and nontender. Negative Homans. Good AROM ankle. Peripheral pulses and light touch sensation intact. Labs Laboratory Tests Test 01/10/17 16:36 01/10/17 21:10 01/11/17 05:52 01/11/17 07:45 Glucose (Fingerstick) 115 mg/dL (70-99) 147 mg/dL (70-99) 124 mg/dL (70-99) Hemoglobin 12.8 g/dL (13.0-17.5) Hematocrit 38.7 % (39.0-53.0) Mean Corpuscular Hemoglobin Concent 33 g/dL (31-37) Test 01/11/17 11:09 01/11/17 16:35 01/11/17 21:08 01/12/17 05:59 Glucose (Fingerstick) 102 mg/dL (70-99) 103 mg/dL (70-99) 137 mg/dL (70-99) White Blood Count 19.4 x10^3/uL (4.0-11.0) Red Blood Count 4.18 x10^6/uL (4.30-5.70) Hemoglobin 12.9 g/dL (13.0-17.5) Hematocrit 38.0 % (39.0-53.0) Mean Corpuscular Volume 91 fL (79-100) Mean Corpuscular Hemoglobin 31 pg (25-35) Mean Corpuscular Hemoglobin Concent 34 g/dL (31-37) Red Cell Distribution Width 14.3 % (11.5-14.5) Platelet Count 272 x10^3/uL (140-400) Neutrophils (%) (Auto) 61 % (31-73) Lymphocytes (%) (Auto) 28 % (24-48) Monocytes (%) (Auto) 9 % (0-9) Eosinophils (%) (Auto) 2 % (0-3) Basophils (%) (Auto) 0 % (0-3) Neutrophils # (Auto) 11.8 x10^3uL (1.8-7.7) Lymphocytes # (Auto) 5.4 x10^3/uL (1.0-4.8) Monocytes # (Auto) 1.8 x10^3/uL (0.0-1.1) Eosinophils # (Auto) 0.4 x10^3/uL (0.0-0.7) Basophils # (Auto) 0.1 x10^3/uL (0.0-0.2) Test 01/12/17 06:48 Glucose (Fingerstick) 124 mg/dL (70-99) Laboratory Tests Test 01/11/17 16:35 01/11/17 21:08 01/12/17 05:59 01/12/17 06:48 Glucose (Fingerstick) 103 mg/dL (70-99) 137 mg/dL (70-99) 124 mg/dL (70-99) White Blood Count 19.4 x10^3/uL (4.0-11.0) Red Blood Count 4.18 x10^6/uL (4.30-5.70) Hemoglobin 12.9 g/dL (13.0-17.5) Hematocrit 38.0 % (39.0-53.0) Mean Corpuscular Volume 91 fL (79-100) Mean Corpuscular Hemoglobin 31 pg (25-35) Mean Corpuscular Hemoglobin Concent 34 g/dL (31-37) Red Cell Distribution Width 14.3 % (11.5-14.5) Platelet Count 272 x10^3/uL (140-400) Neutrophils (%) (Auto) 61 % (31-73) Lymphocytes (%) (Auto) 28 % (24-48) Monocytes (%) (Auto) 9 % (0-9) Eosinophils (%) (Auto) 2 % (0-3) Basophils (%) (Auto) 0 % (0-3) Neutrophils # (Auto) 11.8 x10^3uL (1.8-7.7) Lymphocytes # (Auto) 5.4 x10^3/uL (1.0-4.8) Monocytes # (Auto) 1.8 x10^3/uL (0.0-1.1) Eosinophils # (Auto) 0.4 x10^3/uL (0.0-0.7) Basophils # (Auto) 0.1 x10^3/uL (0.0-0.2) Assessment Assessment POD 3 TKA Problems: Plan Plan of Care Discharge later today, to home with outpatient PT. Continue DVT prophylaxis and physical therapy. F/U 10-14 days. JERALD ASKEW Jan 12, 2017 13:31
--- NOTE | 2017-01-12 13:34 | PDOC3 ---
Discharge Summary Visit Information Date of Admission: Jan 09, 2017 Date of Discharge: Jan 12, 2017 Admitting Diagnosis: right knee osteoarthritis pain Brief Hospital Course Allergies Allergies Coded Allergies Type Severity Reaction Last Updated Verified ibuprofen Allergy Intermediate urinary retention,swelling 01/10/17 Yes Vital Signs Vital Signs Date Time Temp Pulse Resp B/P (MAP) Pulse Ox O2 Delivery O2 Flow Rate FiO2 01/12/17 12:44 Room Air 01/12/17 11:37 98.4 77 16 144/84 (104) 94 98.4 Lab Results Laboratory Tests Test 01/10/17 16:36 01/10/17 21:10 01/11/17 05:52 01/11/17 07:45 Glucose (Fingerstick) 115 mg/dL (70-99) 147 mg/dL (70-99) 124 mg/dL (70-99) Hemoglobin 12.8 g/dL (13.0-17.5) Hematocrit 38.7 % (39.0-53.0) Mean Corpuscular Hemoglobin Concent 33 g/dL (31-37) Test 01/11/17 11:09 01/11/17 16:35 01/11/17 21:08 01/12/17 05:59 Glucose (Fingerstick) 102 mg/dL (70-99) 103 mg/dL (70-99) 137 mg/dL (70-99) White Blood Count 19.4 x10^3/uL (4.0-11.0) Red Blood Count 4.18 x10^6/uL (4.30-5.70) Hemoglobin 12.9 g/dL (13.0-17.5) Hematocrit 38.0 % (39.0-53.0) Mean Corpuscular Volume 91 fL (79-100) Mean Corpuscular Hemoglobin 31 pg (25-35) Mean Corpuscular Hemoglobin Concent 34 g/dL (31-37) Red Cell Distribution Width 14.3 % (11.5-14.5) Platelet Count 272 x10^3/uL (140-400) Neutrophils (%) (Auto) 61 % (31-73) Lymphocytes (%) (Auto) 28 % (24-48) Monocytes (%) (Auto) 9 % (0-9) Eosinophils (%) (Auto) 2 % (0-3) Basophils (%) (Auto) 0 % (0-3) Neutrophils # (Auto) 11.8 x10^3uL (1.8-7.7) Lymphocytes # (Auto) 5.4 x10^3/uL (1.0-4.8) Monocytes # (Auto) 1.8 x10^3/uL (0.0-1.1) Eosinophils # (Auto) 0.4 x10^3/uL (0.0-0.7) Basophils # (Auto) 0.1 x10^3/uL (0.0-0.2) Test 01/12/17 06:48 Glucose (Fingerstick) 124 mg/dL (70-99) Laboratory Tests Test 01/11/17 16:35 01/11/17 21:08 01/12/17 05:59 01/12/17 06:48 Glucose (Fingerstick) 103 mg/dL (70-99) 137 mg/dL (70-99) 124 mg/dL (70-99) White Blood Count 19.4 x10^3/uL (4.0-11.0) Red Blood Count 4.18 x10^6/uL (4.30-5.70) Hemoglobin 12.9 g/dL (13.0-17.5) Hematocrit 38.0 % (39.0-53.0) Mean Corpuscular Volume 91 fL (79-100) Mean Corpuscular Hemoglobin 31 pg (25-35) Mean Corpuscular Hemoglobin Concent 34 g/dL (31-37) Red Cell Distribution Width 14.3 % (11.5-14.5) Platelet Count 272 x10^3/uL (140-400) Neutrophils (%) (Auto) 61 % (31-73) Lymphocytes (%) (Auto) 28 % (24-48) Monocytes (%) (Auto) 9 % (0-9) Eosinophils (%) (Auto) 2 % (0-3) Basophils (%) (Auto) 0 % (0-3) Neutrophils # (Auto) 11.8 x10^3uL (1.8-7.7) Lymphocytes # (Auto) 5.4 x10^3/uL (1.0-4.8) Monocytes # (Auto) 1.8 x10^3/uL (0.0-1.1) Eosinophils # (Auto) 0.4 x10^3/uL (0.0-0.7) Basophils # (Auto) 0.1 x10^3/uL (0.0-0.2) Brief Hospital Course 46 year old who presented with right knee osteoarthritis, for elective total knee arthroplasty. The patient underwent right total knee arthroplasty under general anesthesia the day of admission. Perioperative antibiotics and DVT prophylaxis were used. Postoperatively physical therapy and case management were consulted. The patient progressed and is stable for discharge. Discharge Information Condition at Discharge: Stable Follow Up: Weeks (2) Disposition/Orders: D/C to Home Scheduled Canagliflozin (Invokana), 300 MG PO DAILY, (Reported) Ferrous Sulfate (Ferrous Sulfate), 1 TAB PO DAILY, (Reported) Metformin Hcl (Metformin Hcl), 500 MG PO BIDWMEALS, (Reported) Methadone Hcl (Methadone Hcl), 20 MG PO QID, (Reported) Oxycodone Hcl (Oxycodone Hcl), 20 MG PO BID, (Reported) Pioglitazone Hcl (Actos), 1 TAB PO DAILY, (Reported) Patient Instructions Patient Instructions Patient Instructions Continue to WBAT with walker. Keep dressing dry and intact. F/U with [facility] in 10-14 days. Call for appointment. Physical therapy for TKA Continue DVT prophylaxis. JERALD ASKEW Jan 12, 2017 13:34
--- NOTE | 2017-01-15 08:37 | PATHOLOGY ---
PATHOLOGY REPORT * * * * * * * * FINAL DIAGNOSIS: Segments of bone and soft tissue, right total knee arthroplasty: - Advanced degenerative arthritis. (JPM/db; 01/13/2017) REPORT ELECTRONICALLY SIGNED BY: Meliton Payton M.D. DATE/TIME: 01/15/2017 08:37 * * * * * * * * GROSS PATHOLOGY: Received in formalin labeled "Nico Cruz Jr., right knee bone and tissue," are multiple segments of bone, including tibial plateau, measuring 16.2 x 15.8 x 2.3 cm in aggregate dimensions admixed with soft tissue; meniscus is present. The specimen shows focal eburnation of the articular surfaces. Scrap Hooker sections of bone and soft tissue are submitted in cassette A1, following decalcification. (KAH; 01/11/2017) INITIAL CPT CODE(S): A; 45856, 30286 Professional services [place] [place] [address] Technical services performed by [facility] at [address] [place] [address]. SPECIMEN(S) RECEIVED: A.Right knee bone and tissue CLINICAL HISTORY: Unilateral post-traumatic right knee PATIENT: NICO CRUZ JR /AGE: 10 1970 (Age: 46) PATIENT #: [id number] ALT CASE #: SPECIMEN COLLECTION DATE: 01/10/2017 SPECIMEN RECEIVED DATE: 01/10/2017 [facility] - [address] [place] [address] - PHONE: [phone] * * * END OF REPORT * * *
== END 2017-01-12 16:53 | disposition home or self-care (01) | DRG 470 ==
LOC: OPSVCIP 01-09 14:07 → 4 SOUTHWST 01-09 20:25
PROVIDERS: ADMIT Orthopaedic Surgery; ATTEND Orthopaedic Surgery
PROC: 0SPC04Z Removal of Internal Fixation Device from Right Knee Joint, Open Approach (ICD-10-PCS; 2017-01-09)
PROC: 0SRC0J9 Replacement of Right Knee Joint with Synthetic Substitute, Cemented, Open Approach (ICD-10-PCS; principal; 2017-01-09 15:30)
DX: M17.31 Unilateral post-traumatic osteoarthritis, right knee (principal); E03.9 Hypothyroidism, unspecified; Z87.891 Personal history of nicotine dependence; Z90.81 Acquired absence of spleen; Z82.49 Family history of ischemic heart disease and other diseases of the circulatory system; Z88.6 Allergy status to analgesic agent; Z90.89 Acquired absence of other organs; Z79.899 Other long term (current) drug therapy
CPT/HCPCS: 36415; 73560; 82962; 85014; 85018; 85027; 86850; 86900; 86901; 88305; 88311; A6539; J0171; J0690; J1100; J1170; J1885; J2001; J2250; J2270; J2405; J2704; J2795; J3010; J3260; J3370; J3490; J7030; J7120; 97110; 97116; 97150; 97535; C1769

== ENCOUNTER → 2016-12-25 | Outpatient (CLI) | payer MEDICARE, OTHER ==
[2014-06-26 07:43] VITALS: BP 143/93
[~2016-12-25] MED LIST changes: +CANA300T PO; +FERR-26 PO; +METF500T4 PO; +PIOG15TA42 PO
[2016-12-25 15:38] LABS: BASO # 0.2 x10^3/uL (0.0-0.2); BASO % 1 % (0-3); EOS % 2 % (0-3); HEMATOCRIT 43.9 % (39.0-53.0); HEMOGLOBIN 14.5 g/dL (13.0-17.5); LYMPH # 6.9 x10^3/uL (1.0-4.8); LYMPH % 42 % (24-48); MEAN CORPUSCULAR HEMOGLOBIN 31 pg (25-35); MEAN CORPUSCULAR HGB CONC 33 g/dL (31-37); MEAN CORPUSCULAR VOLUME 93 fL (79-100); MONO % 6 % (0-9); NEUT % 49 % (31-73); PLATELET COUNT 319 x10^3/uL (140-400); RED BLOOD COUNT 4.72 x10^6/uL (4.30-5.70); RED CELL DISTRIBUTION WIDTH 14.2 % (11.5-14.5); WHITE BLOOD COUNT 16.4 x10^3/uL (4.0-11.0)
[2016-12-25 15:43] LABS: BILIRUBIN,URINE NEGATIVE (NEG); GLUCOSE,URINE >=1000 mg/dL (NEG); NITRITE,URINE NEGATIVE (NEG); PH,URINE 5.5; PROTEIN,URINE NEGATIVE (NEG-TRACE); UROBILINOGEN,URINE 0.2 mg/dL (0.2 mg/dL)
[2016-12-25 15:55] LABS: ALBUMIN 3.6 g/dL (3.4-5.0); CALCIUM 9.3 mg/dL (8.5-10.1); CREATININE 0.9 mg/dL (0.7-1.3); GFR 90.8; POTASSIUM 3.9 mmol/L (3.5-5.1)
[2016-12-25 15:59] LABS: INR 1.1 (0.8-1.1); PROTHROMBIN TIME PATIENT 13.8 SEC (11.7-14.0)
[2016-12-25 16:30] LABS: BACTERIA,URINE 0 /HPF (0-FEW); RBC,URINE 0 /HPF (0-2); WBC,URINE OCC /HPF (0-4)
[2016-12-25 16:31] LABS: SQUAMOUS EPITHELIAL CELL,UR OCC /LPF
== END | disposition home or self-care (01) ==
LOC: SURGPAT 13:59
PROVIDERS: ATTEND Orthopaedic Surgery
DX: Z01.812 Encounter for preprocedural laboratory examination (principal)
CPT/HCPCS: 36415; 80048; 81001; 82040; 83036; 85027; 85610; 85651; 85730; 87641

== ENCOUNTER → 2017-02-01 | Outpatient (CLI) | payer MEDICAID ==
[~2017-02-01] MED LIST changes: +AMOX1TAB61 PO; +ASPI325T8 PO; +CELE200C PO; +OXYC20TA PO
== END | disposition home or self-care (01) ==
LOC: MERGE 16:13 → SPEC 16:13
PROVIDERS: ATTEND Physician Assistant Surgical
DX: Z96.651 Presence of right artificial knee joint (principal); M25.561 Pain in right knee
CPT/HCPCS: 87071; 87075; 87102; 87116; 87186; 87205

== ENCOUNTER 2017-02-07 08:25 | Inpatient (IN) | payer MEDICARE, OTHER ==
[~2017-02-07] VITALS: Ht 185.4 cm; Wt 129.3 kg
[2017-02-07] VITALS (8 sets, daily range): BP systolic 114–173; BP diastolic 60–91
[2017-02-07] MEDS ORDERED: IV RINGERS,LACTATED 1000ML 1,000 ML IV ONE (08:30)
--- NOTE | 2017-02-07 09:14 | PDOC1 ---
History and Physical Date of Admission Date of Admission DATE: 02/07/17 Identification/Chief Complaint Chief Complaint right knee drainage s/p right TKA 01/09/17 Problems: Source Source: Chart review History of Present Illness History of Present Illness Mr. Mijares is a 46 year old male patient who had right total knee arthroplasty on 01/09/17. Since surgery, he has had a small amount of drainage from the distal end of his incision. Recently, the drainage has become more. Cultures of the fluid were taken in the office on 02/01/17 and revealed growth of Enterococcus faecalis. Past Medical History Cardiovascular: No pertinent hx Pulmonary: No pertinent hx CENTRAL NERVOUS SYSTEM: Other GI: No pertinent hx Heme/Onc: No pertinent hx Hepatobiliary: No pertinent hx Psych: No pertinent hx Musculoskeletal: Other Rheumatologic: No pertinent hx Infectious disease: No pertinent hx Renal/: No pertinent hx Endocrine: Hypothyroidism Past Surgical History Past Surgical History: Cystoscopy, Other (splenectomy, partial kidney removal) Family History Family History: Coronary Artery Disease, Heart Disease Social History Smoke: Quit (09/13/16) ALCOHOL: none Drugs: None, Marijuana Current Medications Current Medications Current Medications Cefazolin Sodium 3 gm/Sodium Chloride 100 ml @ 200 mls/hr 1X PREOP PRN IV PRIOR TO PROCEDURE; Start 02/07/17 at 06:00; Stop 02/07/17 at 15:00 Ringer's Solution 1,000 ml @ 75 mls/hr 1X ONCE IV ; Start 02/07/17 at 08:30; Stop 02/07/17 at 21:49 Active Scripts Active Reported Aspirin 325 Mg Tablet 1 Tab PO DAILY Celebrex (Celecoxib) 200 Mg Capsule 1 Cap PO DAILY Oxycodone Hcl 20 Mg Tablet 40 Mg PO PRN Q4-6HRS PRN Augmentin 875-125 Tablet (Amoxicillin/Potassium Clav) 1 Each Tablet 1 Tab PO BID Ferrous Sulfate 325 Mg Tablet 1 Tab PO DAILY Invokana (Canagliflozin) 300 Mg Tablet 300 Mg PO DAILY Actos (Pioglitazone Hcl) 15 Mg Tablet 30 Mg PO DAILY Metformin Hcl 500 Mg Tablet 500 Mg PO BIDWMEALS Methadone Hcl 5 Mg Tablet 20 Mg PO QID Allergies Allergies: Coded Allergies: ibuprofen (Verified Allergy, Intermediate, urinary retention,swelling, ) MD HALL'tulio Toradol and Celebrex Physical Exam General: Alert, Oriented X3, Cooperative, No acute distress HEENT: Atraumatic, EOMI Lungs: Normal air movement Heart: RRR Abdomen: Soft Extremities: No clubbing, No cyanosis, No edema, Normal pulses, Other (The right total knee incision is clean, dry, and intact, proximally. There is serosanguinous drainage at the distal end of the incision. There is dehiscence of the distal end of the incision. The knee shows active motion from 0-95 degrees. The calf is soft and nontender, with a negative Manny's sign. Good plantarflexion and dorsiflexion with no evidence of neurovascular injury) Skin: No rashes Neuro: Normal speech, Sensation intact Psych/Mental Status: Mental status NL, Mood NL Labs Labs Laboratory Tests Test 02/07/17 08:53 Glucose (Fingerstick) 92 mg/dL (70-99) Laboratory Tests Test 02/07/17 08:53 Glucose (Fingerstick) 92 mg/dL (70-99) VTE Prophylaxis Ordered VTE Prophylaxis Devices: Yes VTE Pharmacological Prophylaxi: Yes Assessment/Plan Assessment/Plan Infected right total knee arthroplasty. Dr. Pitts recommended right knee irrigation and debridement and polyethylene exchange. We will take intraoperative cultures. We discussed the need for IV antibiotics after surgery. Risks of surgery were discussed including continued infection, bleeding, blood clots, neurovascular injury, need for further surgery , and any other surgical or anesthetic complications. All of his questions were answered and he agrees to proceed with surgery. JERALD ASKEW Feb 07, 2017 09:14
[2017-02-07] MEDS ORDERED: fentaNYL PF VIAL 250 MCG/5 ML VIAL ONE (10:20)
[2017-02-07] MEDS ORDERED: ONDANSETRON PF 4 MG/2 ML VIAL. ONE (10:26)
[2017-02-07] MEDS ORDERED: SEVOFLURANE 61 TO 120 MINUTES. IH ONE (10:26)
[2017-02-07] MEDS ORDERED: DEXAMETHASONE SOD PHOS 20 MG/5 ML VIAL. ONE (10:26)
[2017-02-07] MEDS ORDERED: LIDOCAINE 2% PF Vial for OR 5 ML VIAL. ONE (10:27)
[2017-02-07] MEDS ORDERED: PROPOFOL 20 ML IV ONE (10:27)
[2017-02-07] MEDS ORDERED: TRANEXAMIC ACID 1,000 MG in IV NS 50ML -- 1ST BAG INJ ONE (10:30)
[2017-02-07] MEDS ORDERED: VANCOMYCIN 1 GM VIAL. ONE (11:08)
[2017-02-07] MEDS ORDERED: TRANEXAMIC ACID 1,000 MG in IV NS 50ML -- 2ND BAG INJ ONE (11:30)
[2017-02-07] MEDS ORDERED: MORPHINE SULFATE 2 MG/ML DISP.SYRIN. IV PRN (12:00)
[2017-02-07] MEDS ORDERED: PROCHLORPERAZINE 10 MG/2 ML VIAL. IV PRN (12:00)
[2017-02-07] MEDS ORDERED: ZOLPIDEM 5 MG TABLET. PO PRN (12:00)
[2017-02-07] MEDS ORDERED: diphenhydrAMINE 50 MG/ML VIAL IV PRN (12:00)
[2017-02-07] MEDS ORDERED: METOCLOPRAMIDE HCL 10 MG/2 ML VIAL. IV PRN (12:00)
[2017-02-07] MEDS ORDERED: CALCIUM CARBONATE 500 MG TAB.CHEW PO PRN (12:00)
[2017-02-07] MEDS ORDERED: ACETAMINOPHEN 325 MG TABLET. PO PRN (12:00)
[2017-02-07] MEDS: fentaNYL PF VIAL 100 MCG/2 ML VIAL IV PRN ×3 (12:00→13:18)
[2017-02-07] MEDS: IV RINGERS,LACTATED 1000ML 1,000 ML IV SCH (12:00)
[2017-02-07] MEDS ORDERED: MORPHINE SULFATE 10 MG/ML VIAL. IV PRN (12:00)
[2017-02-07] MEDS ORDERED: PROCHLORPERAZINE 5 MG TABLET. PO PRN (12:00)
[2017-02-07] MEDS ORDERED: DEXTROSE 50% 25 GM / 50ML DISP.SYRIN. IV PRN (12:00)
[2017-02-07] MEDS ORDERED: 0.9 % SODIUM CHLORIDE 10 ML DISP.SYRIN. IV PRN (12:00)
[2017-02-07] MEDS ORDERED: fentaNYL PF VIAL 100 MCG/2 ML VIAL IV PRN ×3 (12:00→12:45)
[2017-02-07] MEDS ORDERED: MORPHINE SULFATE 4 MG/ML DISP.SYRIN. IV PRN ×2 (12:00)
[2017-02-07] MEDS ORDERED: fentaNYL PF VIAL 100 MCG/2 ML VIAL ONE ×2 (12:03→12:50)
[2017-02-07] MEDS ORDERED: HYDROmorphone 2 MG/ML VIAL ONE (12:04)
[2017-02-07] MEDS ORDERED: PROCHLORPERAZINE 10 MG/2 ML VIAL. ONE (12:04)
[2017-02-07] MEDS: PROCHLORPERAZINE 10 MG/2 ML VIAL. IV PRN ×2 (12:10→12:30)
[2017-02-07] MEDS: HYDROmorphone 2 MG/ML VIAL IV PRN ×4 (12:10→12:40)
[2017-02-07] MEDS ORDERED: LIDOCAINE 1% 1 ML SYRINGE. ID PRN (12:45)
[2017-02-07] MEDS ORDERED: ONDANSETRON PF 4 MG/2 ML VIAL. IV PRN (12:45)
[2017-02-07] MEDS: MORPHINE SULFATE 2 MG/ML DISP.SYRIN. IV PRN (12:50)
--- NOTE | 2017-02-07 13:23 | RAD ---
Portable right knee, 2 views, 02/07/2017: History: Postop evaluation Comparison is made to a study from 01/09/2017. A total knee prosthesis remains in place. There is a surgical staple in the medial femoral condyle and a surgical screw in the lateral femoral condyle which appear to be unchanged. A screw previously noted at the tibial tuberosity level has been removed. Surgical skin clips and a drain overlie the operative site anteriorly. Several small periarticular calcifications are noted. There is no evidence of a retained surgical instrument, needle or radiopaque sponge
[2017-02-07] MEDS: oxyCODONE IR 5 MG TABLET PO PRN ×3 (14:07→22:35)
--- NOTE | 2017-02-07 14:26 | PDOC ---
Infectious Disease Note Vital Sign Vital Signs Vital Signs Date Time Temp Pulse Resp B/P (MAP) Pulse Ox O2 Delivery O2 Flow Rate FiO2 02/07/17 13:42 97.7 88 18 147/91 (109) 96 Room Air 97.7 02/07/17 12:50 2.0 Labs Lab Laboratory Tests Test 02/07/17 08:53 02/07/17 08:55 02/07/17 12:44 Glucose (Fingerstick) 92 mg/dL (70-99) 149 mg/dL (70-99) Erythrocyte Sedimentation Rate 68 (0-15) C-Reactive Protein, Quantitative 14.6 mg/L (0-3.3) Objective Assessment Infected right TKA s/p I and D, poly exchange, 02/07/2017. Enterococcus-PNC sensitive from 02/01 h/o splenectomy h/o partial nephrectomy Plan Plan of Care vanc Received pre-op cefazolin and steroids f/u intra-op cultures am labs Modify antibiotics Monitor for abx toxicities/side effects Thank you [id number] Attending Co-Sign The patient was seen and interviewed as well as examined at the bedside. The chart was reviewed. The case was discussed. Agree with the plan of care. ampicillin d/w ANYBRITTANY BURCIAGA PAT Feb 07, 2017 14:26 HELEN RODARTE MD Feb 07, 2017 14:30
[2017-02-07] MEDS: IV DEXTROSE 5 %-0.45 % NACL 1,000 ML IV SCH (15:00)
[2017-02-07] MEDS ORDERED: VANCOMYCIN 2 GM in IV NORMAL SALINE 500ML BAG 500 ML IV ONE (15:00)
[2017-02-07] MEDS: VANCOMYCIN PER PHARMACY MC PRN (16:55)
[2017-02-07] MEDS ORDERED: METHADONE 10 MG TABLET. PO SCH (17:00)
[2017-02-07] MEDS: FERROUS SULFATE 325 MG TABLET. PO SCH (17:03)
[2017-02-07] MEDS: metFORMIN 500 MG TABLET PO SCH (17:03)
[2017-02-07] MEDS: AMPICILLIN/SULBACTAM 3 GM in IV NORMAL SALINE 100ML 100 ML IV SCH (18:24)
[2017-02-07] MEDS: CELECOXIB 200 MG CAPSULE. PO SCH (21:15)
[2017-02-07] MEDS: ASPIRIN ENTERIC COATED 325 MG TABLET.DR. PO SCH (21:15)
[2017-02-07] MEDS: VANCOMYCIN 2 GM in IV NORMAL SALINE 500ML BAG 500 ML IV SCH (22:00)
[2017-02-07] MEDS ORDERED: VANCOMYCIN 1 GM in IV NORMAL SALINE 250ML 250 ML IV SCH (23:00)
--- NOTE | 2017-02-07 23:35 | ACF ---
Admission Forms Criteria SKIN AND WOUND CARE Clinical Indications for Inpatient Care (Place 'X' for any and all applicable criteria): Ongoing inpatient care may be indicated for pressure, venous, arterial, or neuropathic ulcers, with ANY ONE of the following (2)(3)(8)(9)(21)(25): [X]I. Need for ANY ONE of the following(26) [ ]a) Pressure ulcer closure procedures [ ]b) Skin grafting [X]c) Wound debridement [ ]d) Dressing change under general anesthesia [ ]e) Arterial revascularization procedures(19) (Also use Aortofemoral or Aortoiliac Bypass or Femoral Popliteal Bypass Criteria as appropriate) [ ]f) Amputation (Also use Foot: Transmetatarsal Amputation or Knee: Amputation Above or Below Knee Criteria as appropriate) [ ]g) Diverting colostomy [ ]h) Other significant surgical treatment [ ]II. Infection requiring inpatient care as indicated by ALL of the following( 27) [ ]a) ANY ONE of the following signs of infection: [ ]i) Poorly approximated incision line. [ ]ii) Excessive drainage [ ]iii) Foul odor [ ]iv) Pus [ ]v) Increased redness [ ]vi) Breakdown in tissue after suture removal [ ]vii) Fever [ ]b) ANY ONE of the following findings: [ ]i) Mental status changes [ ]ii) Dehydration [ ]iii) Bacteremia [ ]iv) Perineal infection [ ]v) Hemodynamic instability [ ]vi) High-risk conditions, such as ANY ONE of the following: [ ]1) Poorly controlled diabetes [ ]2) Cirrhosis [ ]3) Neutropenia [ ]4) Asplenia [ ]5) HIV infection [ ]6) Immunosuppression Extended stay beyond goal length of stay for primary condition may be needed until ALL of the following are present(1)(2)(13)(21)(27): [ ]a) Tissue necrosis absent or treatment plan manageable at lower level of care [ ]b) Fistulas, tunneling, or underlying deep tissue infection absent or treated [ ]c) Purulence and tissue breakdown absent or improved [ ]d) Ulcer surgical repair absent or healing without complications [ ]e) Wound infection absent or manageable at lower level of care [ ]f) Comorbidities absent or manageable at lower level of care The original [facility] content created by Jayla Marroquin has been revised. The portions of the content which have been revised are identified through the use of italic text or in bold, and [facility] has neither reviewed nor approved the modified material. All other unmodified content is copyright [facility]. Please see references footnoted in the original [facility] edition 2016 Admission Criteria Met?: Yes AGUS INTERIANO Feb 07, 2017 23:35
[2017-02-08] MEDS: IV DEXTROSE 5 %-0.45 % NACL 1,000 ML IV SCH (01:00)
[2017-02-08] MEDS: oxyCODONE IR 5 MG TABLET PO PRN ×5 (02:33→21:02)
[2017-02-08 03:21] VITALS: BP 130/79
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
[2017-02-08] MEDS: AMPICILLIN/SULBACTAM 3 GM in IV NORMAL SALINE 100ML 100 ML IV SCH ×5 (05:36→17:30)
[2017-02-08 05:46] LABS: BASO # 0.3 x10^3/uL (0.0-0.2); BASO % 1 % (0-3); EOS % 0 % (0-3); HEMATOCRIT 35.6 % (39.0-53.0); LYMPH # 7.2 x10^3/uL (1.0-4.8); LYMPH % 32 % (24-48); MEAN CORPUSCULAR HEMOGLOBIN 31 pg (25-35); MEAN CORPUSCULAR HGB CONC 34 g/dL (31-37); MEAN CORPUSCULAR VOLUME 90 fL (79-100); MONO % 7 % (0-9); NEUT % 60 % (31-73); PLATELET COUNT 283 x10^3/uL (140-400); RED BLOOD COUNT 3.95 x10^6/uL (4.30-5.70); RED CELL DISTRIBUTION WIDTH 14.8 % (11.5-14.5); WHITE BLOOD COUNT 22.8 x10^3/uL (4.0-11.0)
[2017-02-08] MEDS ORDERED: MAGNESIUM HYDROXIDE 2,400 MG/30 ML ORAL.SUSP. PO PRN (06:00)
[2017-02-08 06:02] LABS: CALCIUM 9.3 mg/dL (8.5-10.1); CREATININE 0.9 mg/dL (0.7-1.3); GFR 90.8; POTASSIUM 3.9 mmol/L (3.5-5.1)
[2017-02-08] MEDS: VANCOMYCIN PER PHARMACY MC PRN ×2 (06:21→11:34)
[2017-02-08] MEDS: METHADONE 10 MG TABLET. PO SCH ×4 (06:27→17:32)
[2017-02-08] MEDS: VANCOMYCIN 2 GM in IV NORMAL SALINE 500ML BAG 500 ML IV SCH ×2 (06:28→14:22)
[2017-02-08 07:16] VITALS: BP 121/76
[2017-02-08 07:20] LABS: PLT ESTIMATE ADEQUATE (ADEQUATE)
[2017-02-08 07:23] LABS: BURR CELLS OCC
[2017-02-08] MEDS: SENNOSIDES/DOCUSATE 8.6/50MG TABLET. PO SCH (08:05)
[2017-02-08] MEDS: MULTIVITAMIN with MINERAL TABLET. PO SCH (08:05)
[2017-02-08] MEDS: FERROUS SULFATE 325 MG TABLET. PO SCH ×2 (08:06→17:32)
[2017-02-08] MEDS: NON FORMULARY ITEM (Canagliflozin (Invokana) 300 MG) PO SCH (08:06)
[2017-02-08] MEDS: PIOGLITAZONE 15 MG TABLET. PO SCH (08:06)
[2017-02-08] MEDS: ASPIRIN ENTERIC COATED 325 MG TABLET.DR. PO SCH ×2 (08:06→21:01)
[2017-02-08] MEDS: CELECOXIB 200 MG CAPSULE. PO SCH ×2 (08:06→21:01)
[2017-02-08] MEDS: metFORMIN 500 MG TABLET PO SCH ×2 (08:06→17:32)
[2017-02-08 10:42] VITALS: BP 137/79
[2017-02-08] MEDS: IV RINGERS,LACTATED 1000ML 1,000 ML IV SCH (11:25)
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
[2017-02-08 15:11] VITALS: BP 119/71
[2017-02-08] MEDS ORDERED: BISACODYL 10 MG SUPP.RECT. PR PRN (16:00)
--- NOTE | 2017-02-08 18:05 | PDOC ---
PROGRESS NOTES Subjective Subjective No complaints except "sore" Objective Vital Signs Vital Signs Date Time Temp Pulse Resp B/P (MAP) Pulse Ox O2 Delivery O2 Flow Rate FiO2 02/08/17 17:20 Room Air 02/08/17 15:11 98.1 62 18 119/71 (87) 98 98.1 02/07/17 12:50 2.0 Physical Exam Prevena VAC with minimal output. Knee immobilizer in place. Foot/ankle NVI. Able to lift leg off bed/chair. PICC in place R arm. Labs Laboratory Tests Test 02/07/17 08:53 02/07/17 08:55 02/07/17 12:44 02/07/17 20:38 Glucose (Fingerstick) 92 mg/dL (70-99) 149 mg/dL (70-99) 155 mg/dL (70-99) Erythrocyte Sedimentation Rate 68 (0-15) C-Reactive Protein, Quantitative 14.6 mg/L (0-3.3) Test 02/08/17 05:35 02/08/17 07:20 02/08/17 11:08 02/08/17 16:07 White Blood Count 22.8 x10^3/uL (4.0-11.0) Red Blood Count 3.95 x10^6/uL (4.30-5.70) Hemoglobin 12.0 g/dL (13.0-17.5) Hematocrit 35.6 % (39.0-53.0) Mean Corpuscular Volume 90 fL (79-100) Mean Corpuscular Hemoglobin 31 pg (25-35) Mean Corpuscular Hemoglobin Concent 34 g/dL (31-37) Red Cell Distribution Width 14.8 % (11.5-14.5) Platelet Count 283 x10^3/uL (140-400) Neutrophils (%) (Auto) 60 % (31-73) Lymphocytes (%) (Auto) 32 % (24-48) Monocytes (%) (Auto) 7 % (0-9) Eosinophils (%) (Auto) 0 % (0-3) Basophils (%) (Auto) 1 % (0-3) Neutrophils # (Auto) 13.6 x10^3uL (1.8-7.7) Lymphocytes # (Auto) 7.2 x10^3/uL (1.0-4.8) Monocytes # (Auto) 1.7 x10^3/uL (0.0-1.1) Eosinophils # (Auto) 0.1 x10^3/uL (0.0-0.7) Basophils # (Auto) 0.3 x10^3/uL (0.0-0.2) Segmented Neutrophils % 64 % (35-66) Lymphocytes % 34 % (24-48) Monocytes % 2 % (0-10) Platelet Estimate Adequate (ADEQUATE) Will Cells Occ Sodium Level 141 mmol/L (136-145) Potassium Level 3.9 mmol/L (3.5-5.1) Chloride Level 103 mmol/L (98-107) Carbon Dioxide Level 32 mmol/L (21-32) Anion Gap 6 (6-14) Blood Urea Nitrogen 11 mg/dL (8-26) Creatinine 0.9 mg/dL (0.7-1.3) Estimated GFR (Cockcroft-Gault) 90.8 Glucose Level 103 mg/dL (70-99) Calcium Level 9.3 mg/dL (8.5-10.1) Vancomycin Level Trough 17.8 mcg/mL (10.0-20.0) Vancomycin Last Dose Date 02/07/17 Vancomycin Last Dose Time 2200 Glucose (Fingerstick) 99 mg/dL (70-99) 101 mg/dL (70-99) 114 mg/dL (70-99) Laboratory Tests Test 02/07/17 20:38 02/08/17 05:35 02/08/17 07:20 02/08/17 11:08 Glucose (Fingerstick) 155 mg/dL (70-99) 99 mg/dL (70-99) 101 mg/dL (70-99) White Blood Count 22.8 x10^3/uL (4.0-11.0) Red Blood Count 3.95 x10^6/uL (4.30-5.70) Hemoglobin 12.0 g/dL (13.0-17.5) Hematocrit 35.6 % (39.0-53.0) Mean Corpuscular Volume 90 fL (79-100) Mean Corpuscular Hemoglobin 31 pg (25-35) Mean Corpuscular Hemoglobin Concent 34 g/dL (31-37) Red Cell Distribution Width 14.8 % (11.5-14.5) Platelet Count 283 x10^3/uL (140-400) Neutrophils (%) (Auto) 60 % (31-73) Lymphocytes (%) (Auto) 32 % (24-48) Monocytes (%) (Auto) 7 % (0-9) Eosinophils (%) (Auto) 0 % (0-3) Basophils (%) (Auto) 1 % (0-3) Neutrophils # (Auto) 13.6 x10^3uL (1.8-7.7) Lymphocytes # (Auto) 7.2 x10^3/uL (1.0-4.8) Monocytes # (Auto) 1.7 x10^3/uL (0.0-1.1) Eosinophils # (Auto) 0.1 x10^3/uL (0.0-0.7) Basophils # (Auto) 0.3 x10^3/uL (0.0-0.2) Segmented Neutrophils % 64 % (35-66) Lymphocytes % 34 % (24-48) Monocytes % 2 % (0-10) Platelet Estimate Adequate (ADEQUATE) [place] Cells Occ Sodium Level 141 mmol/L (136-145) Potassium Level 3.9 mmol/L (3.5-5.1) Chloride Level 103 mmol/L (98-107) Carbon Dioxide Level 32 mmol/L (21-32) Anion Gap 6 (6-14) Blood Urea Nitrogen 11 mg/dL (8-26) Creatinine 0.9 mg/dL (0.7-1.3) Estimated GFR (Cockcroft-Gault) 90.8 Glucose Level 103 mg/dL (70-99) Calcium Level 9.3 mg/dL (8.5-10.1) Vancomycin Level Trough 17.8 mcg/mL (10.0-20.0) Vancomycin Last Dose Date 02/07/17 Vancomycin Last Dose Time 2200 Test 02/08/17 16:07 Glucose (Fingerstick) 114 mg/dL (70-99) Assessment Assessment possible infected TKA. Enterococcus from superficial drainage taken in office. High risk patient for revisions due to age and multiple prior surgeries. Intra-op cultures negative so far. Would plan to treat with IV abx for 6 weeks , even if operative cultures are negative, due to the good chance of preventing further surgery with that approach. Will plan po abx for several months after the 6 weeks of IV abx, until sed rate and CRP normalize Problems: NICO DAVIS MD Feb 08, 2017 18:05
[2017-02-08 19:00] VITALS: BP 129/63
[2017-02-08 23:00] VITALS: BP 116/69
[2017-02-09] MEDS: AMPICILLIN/SULBACTAM 3 GM in IV NORMAL SALINE 100ML 100 ML IV SCH ×3 (00:46→12:49)
[2017-02-09] MEDS: oxyCODONE IR 5 MG TABLET PO PRN ×5 (01:00→17:55)
[2017-02-09 03:00] VITALS: BP_SYST 119; BP_SYST 187; BP_DIAS 75; BP_DIAS 98
[2017-02-09] MEDS: METHADONE 10 MG TABLET. PO SCH ×4 (05:46→17:55)
[2017-02-09 07:35] VITALS: BP 127/72
[2017-02-09] MEDS: SENNOSIDES/DOCUSATE 8.6/50MG TABLET. PO SCH (08:50)
[2017-02-09] MEDS: MULTIVITAMIN with MINERAL TABLET. PO SCH (08:50)
[2017-02-09] MEDS: CELECOXIB 200 MG CAPSULE. PO SCH (08:50)
[2017-02-09] MEDS: PIOGLITAZONE 15 MG TABLET. PO SCH (08:51)
[2017-02-09] MEDS: metFORMIN 500 MG TABLET PO SCH ×2 (08:51→17:26)
[2017-02-09] MEDS: FERROUS SULFATE 325 MG TABLET. PO SCH ×2 (08:51→17:26)
[2017-02-09] MEDS: NON FORMULARY ITEM (Canagliflozin (Invokana) 300 MG) PO SCH (08:51)
[2017-02-09] MEDS: ASPIRIN ENTERIC COATED 325 MG TABLET.DR. PO SCH (08:51)
[2017-02-09 11:05] VITALS: BP 130/78
--- NOTE | 2017-02-09 11:15 | PDOC ---
PROGRESS NOTES Subjective Subjective wants to go home. Feeling better. Objective Vital Signs Vital Signs Date Time Temp Pulse Resp B/P (MAP) Pulse Ox O2 Delivery O2 Flow Rate FiO2 02/09/17 10:00 Room Air 02/09/17 07:35 97.7 60 18 127/72 (90) 96 97.7 02/07/17 12:50 2.0 Physical Exam dressing dry. Brace intact. No evidence of DVT or NV injury. Labs Laboratory Tests Test 02/07/17 12:44 02/07/17 20:38 02/08/17 05:35 02/08/17 07:20 Glucose (Fingerstick) 149 mg/dL (70-99) 155 mg/dL (70-99) 99 mg/dL (70-99) White Blood Count 22.8 x10^3/uL (4.0-11.0) Red Blood Count 3.95 x10^6/uL (4.30-5.70) Hemoglobin 12.0 g/dL (13.0-17.5) Hematocrit 35.6 % (39.0-53.0) Mean Corpuscular Volume 90 fL (79-100) Mean Corpuscular Hemoglobin 31 pg (25-35) Mean Corpuscular Hemoglobin Concent 34 g/dL (31-37) Red Cell Distribution Width 14.8 % (11.5-14.5) Platelet Count 283 x10^3/uL (140-400) Neutrophils (%) (Auto) 60 % (31-73) Lymphocytes (%) (Auto) 32 % (24-48) Monocytes (%) (Auto) 7 % (0-9) Eosinophils (%) (Auto) 0 % (0-3) Basophils (%) (Auto) 1 % (0-3) Neutrophils # (Auto) 13.6 x10^3uL (1.8-7.7) Lymphocytes # (Auto) 7.2 x10^3/uL (1.0-4.8) Monocytes # (Auto) 1.7 x10^3/uL (0.0-1.1) Eosinophils # (Auto) 0.1 x10^3/uL (0.0-0.7) Basophils # (Auto) 0.3 x10^3/uL (0.0-0.2) Segmented Neutrophils % 64 % (35-66) Lymphocytes % 34 % (24-48) Monocytes % 2 % (0-10) Platelet Estimate Adequate (ADEQUATE) [place] Cells Occ Sodium Level 141 mmol/L (136-145) Potassium Level 3.9 mmol/L (3.5-5.1) Chloride Level 103 mmol/L (98-107) Carbon Dioxide Level 32 mmol/L (21-32) Anion Gap 6 (6-14) Blood Urea Nitrogen 11 mg/dL (8-26) Creatinine 0.9 mg/dL (0.7-1.3) Estimated GFR (Cockcroft-Gault) 90.8 Glucose Level 103 mg/dL (70-99) Calcium Level 9.3 mg/dL (8.5-10.1) Vancomycin Level Trough 17.8 mcg/mL (10.0-20.0) Vancomycin Last Dose Date 02/07/17 Vancomycin Last Dose Time 2200 Test 02/08/17 11:08 02/08/17 16:07 02/08/17 20:52 02/09/17 07:39 Glucose (Fingerstick) 101 mg/dL (70-99) 114 mg/dL (70-99) 112 mg/dL (70-99) 106 mg/dL (70-99) Laboratory Tests Test 02/08/17 16:07 02/08/17 20:52 02/09/17 07:39 Glucose (Fingerstick) 114 mg/dL (70-99) 112 mg/dL (70-99) 106 mg/dL (70-99) Assessment Assessment op cultures still negative Problems: Plan Plan of Care Can we assume op cultures will remain negative, and discharge home on IV abx for the original organism? I'm not 100 certain this is infected, but I want to treat as if it is with 6 weeks of IV abx. Discharge planning with home health and home IV abx. NICO DAVIS MD Feb 09, 2017 11:15
[2017-02-09 11:21] LABS: HEMATOCRIT 35.7 % (39.0-53.0); HEMOGLOBIN 11.5 g/dL (13.0-17.5)
--- NOTE | 2017-02-09 12:31 | PDOC ---
Infectious Disease Note Subjective Subjective Comfortable, pain controlled D/c home w/ HH ROS ROS GEN: Denies fevers, chills, sweats CV: Denies chest pain RESP: Denies shortness of air, cough GI: Denies n/v/d Vital Sign Vital Signs Vital Signs Date Time Temp Pulse Resp B/P (MAP) Pulse Ox O2 Delivery O2 Flow Rate FiO2 02/09/17 10:00 Room Air 02/09/17 07:35 97.7 60 18 127/72 (90) 96 97.7 Physical Exam PHYSICAL EXAM GENERAL: Sitting in the chair, eating lunch LUNGS: Clear to auscultation. HEART: Normal S1 and S2. ABDOMEN: Obese. Bowel sounds are present, soft, and nontender. EXTREMITIES: No gross edema or cyanosis. Distal pulses are palpable. Right knee bandaged/immobilizer in place SKIN: Without rash. NEUROLOGIC: Alert and oriented x 3. RUE-PICC. (02/07). clean Labs Lab Laboratory Tests Test 02/08/17 16:07 02/08/17 20:52 02/09/17 07:39 02/09/17 11:10 Glucose (Fingerstick) 114 mg/dL (70-99) 112 mg/dL (70-99) 106 mg/dL (70-99) Hemoglobin 11.5 g/dL (13.0-17.5) Hematocrit 35.7 % (39.0-53.0) Mean Corpuscular Hemoglobin Concent 32 g/dL (31-37) Test 02/09/17 11:30 Glucose (Fingerstick) 89 mg/dL (70-99) Micro Right knee (intra-op) GRAM STAIN Final WBCS NONE SEEN RBCS FEW ORGANISMS NONE SEEN ANAEROBIC-AEROBIC CULTURE Preliminary Preliminary report ANAEROBIC RES 1 Preliminary Comment No anaerobes recovered in 48 hours. AEROBIC CULT Preliminary Preliminary report AEROBIC RES 1 Preliminary Comment No growth after 18-24 hours. Objective Assessment Infected right TKA s/p I and D, poly exchange, 02/07/2017. Intra-op cultures no growth, had been on abx prior to surgery Enterococcus-PNC sensitive from 02/01 h/o splenectomy Diabetes h/o partial nephrectomy Plan Plan of Care Unasyn Received pre-op cefazolin and steroids Monitor for abx toxicities/side effects Will need minimum of 6 weeks of abx therapy. F/u appt with our office in 2 weeks Weekly CBC, Cr & ESR faxed to [phone] Justyna Rodarte to see patient prior to discharge home. D/w RN Attending Co-Sign The patient was seen and interviewed as well as examined at the bedside. The chart was reviewed. The case was discussed. Agree with the plan of care. change unasyn to zosyn ( for broad coverage, enterococcus was surface swab less likely to be pathogen ) f/u with us in 2 wks wkly cbc, bun/cr, sed rate BRITTANY PERSON APRN Feb 09, 2017 12:31 HELEN RODARTE MD Feb 09, 2017 14:01
[2017-02-09 15:00] VITALS: BP 143/79
[2017-02-09] MEDS ORDERED: PIPERACILLIN/TAZOBACTAM 4.5 GM in IV NORMAL SALINE 100ML 100 ML IV SCH (15:00)
--- NOTE | 2017-02-13 17:26 | PDOC4 ---
Operative Note Operative Note Date of Procedure: 02/07/2017 Pre-Op Diagnosis: Painful right total knee arthroplasty Post-Op Diagnosis: Painful right total knee arthroplasty Procedure: Irrigation and debridement right total knee arthroplasty with revision of one component, the tibial polyethylene Surgeon(s): Nico Pitts MD Plant Breeder: Karin Kessler PA-C Anesthesia: General EBL: 100 mL Specimens Obtained: Deep cultures, including tissue for aerobic, anaerobic, fungal, AFB Complications: none Drains: none Tourniquet time: 56 minutes Indications for Procedure: The patient is a 46 year old with previous total knee arthroplasty recently. He developed increasing pain and some drainage from the anterior lower portion of the incision. He did not have enough of an effusion to perform intra-articular aspiration in the office. The serous drainage at the skin was cultured in the office, and did show bacteria however it also showed skin cells and may be contaminated. The patient and I discussed the risks, benefits and alternatives of surgery. Due to a preponderance of caution, especially because of his young age, I recommended irrigation and debridement with polyethylene exchange. The patient agrees. Written consent was obtained. Procedure in Detail: The patient was identified in the preoperative holding area. The correct extremity was marked by me. The patient was taken to the operating room where general anesthetic was used. The patient was positioned supine on the operating table. Preoperative antibiotics were given intravenously. A tourniquet was used on the thigh. A timeout procedure was performed. The limb was prepared in sterile fashion and sterile drapes were applied. The previous stockinette and [place] drape were used such that the skin is entirely covered. The operating team wore the personal exhaust ventilated hoods. The limb was elevated and exsanguinated. The tourniquet was inflated to 350 mmHg. The previous scar was used as a incision. Sharp dissection was used. Bovie electrocautery was used as needed for hemostasis. The prior medial parapatellar arthrotomy was used and reopened. Sutures were removed. Deep cultures were taken. There was serous fluid, and no obvious infection. The polyethylene was removed with a Hohmann. The [place] pulse radiology specialist was used to copious irrigation was used with saline. A synovectomy was performed. Excisional debridement was performed of the deep synovium. There was no nonviable tissue other than minor portions of some synovium. A new polyethylene was chosen, the same size as previously, which is the size 78 21 mm Journey II BCS constrained articular insert. This was inserted with the livery car driver, and the knee was reduced. Copious irrigation was used a final time. The incision was now closed in layers using #1 PDS [id number] sutures in the medial parapatellar arthrotomy. The arthrotomy was now run with #1 PDS suture. The subcutaneous tissues were closed with 2-0 Monocryl suture. 3-0 Monocryl was used in the subcuticular layer. [place] were placed in the skin. A sterile dressing was applied. Needle and sponge counts were correct. There were no apparent complications. NICO PITTS MD Feb 13, 2017 17:26
--- NOTE | 2017-02-13 17:29 | PDOC ---
BRIEF OPERATIVE NOTE Date: Feb 07, 2017 Pre-Op Diagnosis painful right total knee arthroplasty Post-Op Diagnosis painful right total knee arthroplasty Procedure Performed irrigation and debridement of right total knee arthroplasty with revision of one component: The tibial polyethylene Surgeon Gisselle Budget Manager Checo PÉREZ Anesthesia Type: General Blood Loss 100 mL Specimens Obtained specimens: aerobic, anaerobic, fungal, AFB Complications none OPerative Note Date of Procedure: 02/07/2017 Pre-Op Diagnosis: Painful right total knee arthroplasty Post-Op Diagnosis: Painful right total knee arthroplasty Procedure: Irrigation and debridement right total knee arthroplasty with revision of one component, the tibial polyethylene Surgeon(s): Nico Pitts MD Budget Manager: Karin Kessler PA-C Anesthesia: General EBL: 100 mL Specimens Obtained: Deep cultures, including tissue for aerobic, anaerobic, fungal, AFB Complications: none Drains: none Tourniquet time: 56 minutes Indications for Procedure: The patient is a 46 year old with previous total knee arthroplasty recently. He developed increasing pain and some drainage from the anterior lower portion of the incision. He did not have enough of an effusion to perform intra-articular aspiration in the office. The serous drainage at the skin was cultured in the office, and did show bacteria however it also showed skin cells and may be contaminated. The patient and I discussed the risks, benefits and alternatives of surgery. Due to a preponderance of caution, especially because of his young age, I recommended irrigation and debridement with polyethylene exchange. The patient agrees. Written consent was obtained. Procedure in Detail: The patient was identified in the preoperative holding area. The correct extremity was marked by me. The patient was taken to the operating room where general anesthetic was used. The patient was positioned supine on the operating table. Preoperative antibiotics were given intravenously. A tourniquet was used on the thigh. A timeout procedure was performed. The limb was prepared in sterile fashion and sterile drapes were applied. The previous stockinette and [place] drape were used such that the skin is entirely covered. The operating team wore the personal exhaust ventilated hoods. The limb was elevated and exsanguinated. The tourniquet was inflated to 350 mmHg. The previous scar was used as a incision. Sharp dissection was used. Bovie electrocautery was used as needed for hemostasis. The prior medial parapatellar arthrotomy was used and reopened. Sutures were removed. Deep cultures were taken. There was serous fluid, and no obvious infection. The polyethylene was removed with a Hohmann. The [employer] pulse material combiner was used to copious irrigation was used with saline. A synovectomy was performed. Excisional debridement was performed of the deep synovium. There was no nonviable tissue other than minor portions of some synovium. A new polyethylene was chosen, the same size as previously, which is the size 78 21 mm Journey II BCS constrained articular insert. This was inserted with the regulatory law specialist, and the knee was reduced. Copious irrigation was used a final time. The incision was now closed in layers using #1 PDS [id number] sutures in the medial parapatellar arthrotomy. The arthrotomy was now run with #1 PDS suture. The subcutaneous tissues were closed with 2-0 Monocryl suture. 3-0 Monocryl was used in the subcuticular layer. [place] were placed in the skin. A sterile dressing was applied. Needle and sponge counts were correct. There were no apparent complications. NICO PITTS MD Feb 13, 2017 17:29
--- NOTE | 2017-02-16 11:41 | PDOC3 ---
Discharge Summary Visit Information Date of Admission: Feb 07, 2017 Date of Discharge: Feb 09, 2017 Admitting Diagnosis: infected right total knee arthroplasty Brief Hospital Course Allergies Allergies Coded Allergies Type Severity Reaction Last Updated Verified ibuprofen Allergy Intermediate urinary retention,swelling 02/07/17 Yes Brief Hospital Course 46 year old male who presented with infected left total knee arthroplasty, for left total knee irrigation and debridement and polyethylene exchange. The patient underwent left total knee irrigation and debridement and polyethylene exchange under general anesthesia the day of admission. Perioperative antibiotics and DVT prophylaxis were used. A PICC line was placed and IV antibiotics were started, per infectious disease. Postoperatively infectious disease, physical therapy, and case management were consulted. The patient progressed and is stable for discharge. Discharge Information Condition at Discharge: Stable Follow Up: Weeks (2) Disposition/Orders: D/C to Home Scheduled Amoxicillin/Potassium Clav (Augmentin 875-125 Tablet), 1 TAB PO BID, (Reported) Aspirin (Aspirin), 1 TAB PO DAILY, (Reported) Canagliflozin (Invokana), 300 MG PO DAILY, (Reported) Celecoxib (Celebrex), 1 CAP PO DAILY, (Reported) Ferrous Sulfate (Ferrous Sulfate), 1 TAB PO DAILY, (Reported) Metformin Hcl (Metformin Hcl), 500 MG PO BIDWMEALS, (Reported) Methadone Hcl (Methadone Hcl), 20 MG PO QID, (Reported) Pioglitazone Hcl (Actos), 30 MG PO DAILY, (Reported) Scheduled PRN Oxycodone Hcl (Oxycodone Hcl), 40 MG PO PRN Q4-6HRS PRN for PAIN, (Reported) Patient Instructions Patient Instructions Patient Instructions Continue 50% WB on RLE with knee brace intact with walker. Keep dressing dry and intact. F/U with [facility] in 7 days. Call for appointment. Continue DVT prophylaxis. JERALD ASKEW Feb 16, 2017 11:41
== END 2017-02-09 18:30 | disposition home health service (06) | DRG 468 ==
LOC: OPSVCIP 08:25 → 4 NORTH 13:30
PROVIDERS: ADMIT Orthopaedic Surgery; ATTEND Orthopaedic Surgery
PROC: 0SPT0JZ Removal of Synthetic Substitute from Right Knee Joint, Femoral Surface, Open Approach (ICD-10-PCS; 2017-02-07)
PROC: 0SRT0JZ Replacement of Right Knee Joint, Femoral Surface with Synthetic Substitute, Open Approach (ICD-10-PCS; 2017-02-07)
PROC: 0SBC0ZZ Excision of Right Knee Joint, Open Approach (ICD-10-PCS; principal; 2017-02-07 10:00)
DX: T84.53XA Infection and inflammatory reaction due to internal right knee prosthesis, initial encounter (principal); E03.9 Hypothyroidism, unspecified; E11.9 Type 2 diabetes mellitus without complications; F12.90 Cannabis use, unspecified, uncomplicated; Z96.651 Presence of right artificial knee joint; K21.9 Gastro-esophageal reflux disease without esophagitis; Y83.1 Surgical operation with implant of artificial internal device as the cause of abnormal reaction of the patient, or of later complication, without mention of misadventure at the time of the procedure; Z82.49 Family history of ischemic heart disease and other diseases of the circulatory system; Z90.5 Acquired absence of kidney; Z90.81 Acquired absence of spleen; Z88.8 Allergy status to other drugs, medicaments and biological substances
CPT/HCPCS: 36415; 73560; 80048; 80202; 82962; 85007; 85014; 85018; 85027; 85651; 86140; 87071; 87075; 87102; 87116; 87205; C1713; J0295; J0690; J0780; J1100; J1170; J2001; J2270; J2405; J2704; J3010; J3370; J7030; J7040; J7120; 97116; C1769

== ENCOUNTER 2017-03-03 14:40 | Inpatient (IN) | payer MEDICARE, OTHER ==
[~2017-03-03] VITALS: Ht 188 cm; Wt 119.3 kg
--- NOTE | 2017-03-03 14:56 | PHYS DOC ---
Past Medical History Past Medical History: Other Additional Past Medical Histor: chronic knee & hand pain Past Surgical History: Tonsillectomy, Other Additional Past Surgical Histo: multiple orthopedic surgeries, splenectomy, eye surgery Alcohol Use: None Drug Use: None Adult General Chief Complaint Chief Complaint: CHEST PAIN [facility] HPI Patient is a 46 year old male who presents with chest pain. He states this started approximately last 24 hours since been intermittent but now has been getting worse. He states the pain sharp and goes his back and down to his buttocks. States nothing makes the pain better or worse. He also feels nauseated. He denies any shortness of breath with this. He does a past medical history of right knee infection and is on antibiotics every 8 hours through his PICC line. He states he fell again a fever earlier but denies any now. Patient states he's on Piprecillin and is followed by Dr. Adams. Review of Systems Review of Systems Constitutional: Denies fever or chills [] Eyes: Denies change in visual acuity, redness, or eye pain [] HENT: Denies nasal congestion or sore throat [] Respiratory: Denies cough or shortness of breath [] Cardiovascular: No additional information not addressed in HPI [] GI: Denies abdominal pain, nausea, vomiting, bloody stools or diarrhea [] : Denies dysuria or hematuria [] Musculoskeletal: Denies back pain or joint pain [] Integument: Denies rash or skin lesions [] Neurologic: Denies headache, focal weakness or sensory changes [] Endocrine: Denies polyuria or polydipsia [] Current Medications Current Medications Current Medications Medications (Trade) Dose Ordered Sig/[facility] Start Time Stop Time Status Last Admin Dose Admin Info (Do NOT chart on this entry -- for MONITORING) 1 each PRN DAILY PRN 03/03/17 16:15 03/05/17 16:14 Iohexol (Omnipaque 350 Mg/ml) 90 ml 1X ONCE 03/03/17 16:00 03/03/17 16:03 DC 03/03/17 16:30 90 ML Morphine Sulfate 4 mg PRN Q15MIN PRN 03/03/17 15:00 03/04/17 14:59 03/03/17 17:00 4 MG Ondansetron HCl (Zofran) 4 mg 1X ONCE 03/03/17 15:00 03/03/17 15:01 DC 03/03/17 15:20 4 MG Sodium Chloride 1,000 ml @ 1,000 mls/hr 1X ONCE 03/03/17 16:30 03/03/17 17:29 DC 03/03/17 16:55 1,000 MLS/HR Allergies Allergies Allergies Coded Allergies Type Severity Reaction Last Updated Verified ibuprofen Allergy Intermediate urinary retention,swelling 02/07/17 Yes Physical Exam Physical Exam Constitutional: Well developed, well nourished, no acute distress, non-toxic appearance. [] HENT: Normocephalic, atraumatic, bilateral external ears normal, oropharynx moist, no oral exudates, nose normal. [] Eyes: PERRLA, EOMI, conjunctiva normal, no discharge. [] Neck: Normal range of motion, no tenderness, supple, no stridor. [] Cardiovascular:Heart rate regular rhythm, no murmur [] Lungs & Thorax: Bilateral breath sounds clear to auscultation [] Abdomen: Bowel sounds normal, soft, no tenderness, no masses, no pulsatile masses. [] Skin: Warm, dry, no erythema, no rash. [] Back: No tenderness, no CVA tenderness. [] Extremities: No tenderness, no cyanosis, no clubbing, ROM intact, no edema. [] Neurologic: Alert and oriented X 3, normal motor function, normal sensory function, no focal deficits noted. [] Psychologic: Affect normal, judgement normal, mood normal. [] Current Patient Data Vital Signs Vital Signs Date Time Temp Pulse Resp B/P (MAP) Pulse Ox O2 Delivery O2 Flow Rate FiO2 03/03/17 17:30 94 22 143/74 (97) 94 Room Air 03/03/17 14:45 98.0 98.0 Lab Values Laboratory Tests Test 03/03/17 15:11 03/03/17 15:40 White Blood Count 10.6 x10^3/uL (4.0-11.0) Red Blood Count 4.52 x10^6/uL (4.30-5.70) Hemoglobin 13.4 g/dL (13.0-17.5) Hematocrit 40.8 % (39.0-53.0) Mean Corpuscular Volume 90 fL (79-100) Mean Corpuscular Hemoglobin 30 pg (25-35) Mean Corpuscular Hemoglobin Concent 33 g/dL (31-37) Red Cell Distribution Width 15.2 % (11.5-14.5) H Platelet Count 259 x10^3/uL (140-400) Neutrophils (%) (Auto) 73 % (31-73) Lymphocytes (%) (Auto) 25 % (24-48) Monocytes (%) (Auto) 1 % (0-9) Eosinophils (%) (Auto) 1 % (0-3) Basophils (%) (Auto) 1 % (0-3) Neutrophils # (Auto) 7.7 x10^3uL (1.8-7.7) Lymphocytes # (Auto) 2.6 x10^3/uL (1.0-4.8) Monocytes # (Auto) 0.1 x10^3/uL (0.0-1.1) Eosinophils # (Auto) 0.2 x10^3/uL (0.0-0.7) Basophils # (Auto) 0.1 x10^3/uL (0.0-0.2) Segmented Neutrophils % 34 % (35-66) L Band Neutrophils % 44 % (0-9) H Lymphocytes % 18 % (24-48) L Monocytes % 2 % (0-10) Eosinophils % 2 % (0-5) Nucleated Red Blood Cells 9 Toxic Vacuolation Present [place]ohle Bodies Present Platelet Estimate Adequate (ADEQUATE) Large Platelets Present Poikilocytosis Slight [place] Bodies Present Prothrombin Time 15.9 SEC (11.7-14.0) H Prothrombin Time INR 1.4 (0.8-1.1) H Sodium Level 133 mmol/L (136-145) L Potassium Level 3.2 mmol/L (3.5-5.1) L Chloride Level 92 mmol/L (98-107) L Carbon Dioxide Level 29 mmol/L (21-32) Anion Gap 12 (6-14) Blood Urea Nitrogen 16 mg/dL (8-26) Creatinine 1.0 mg/dL (0.7-1.3) Estimated GFR (Cockcroft-Gault) 80.4 Glucose Level 193 mg/dL (70-99) H Lactic Acid Level 3.2 mmol/L (0.4-2.0) H Calcium Level 9.9 mg/dL (8.5-10.1) Magnesium Level 1.8 mg/dL (1.8-2.4) Total Bilirubin 0.3 mg/dL (0.2-1.0) Direct Bilirubin 0.2 mg/dL (0.0-0.2) Aspartate Amino Transferase (AST) 270 U/L (15-37) H Alanine Aminotransferase (ALT) 116 U/L (16-63) H Alkaline Phosphatase 383 U/L (46-116) H Creatine Kinase 562 U/L (39-308) H Creatine Kinase MB (Mass) 0.6 ng/mL (0.0-3.6) Creatine Kinase MB Relative Index 0.1 % (0-4) Troponin I Quantitative < 0.017 ng/mL (0.000-0.055) CR-Dah-X-Type Natriuretic Peptide 304 pg/mL (0-124) H Total Protein 8.6 g/dL (6.4-8.2) H Albumin 3.5 g/dL (3.4-5.0) Lipase 76 U/L (73-393) Thyroid Stimulating Hormone (TSH) 1.215 uIU/mL (0.358-3.74) Urine Collection Type Unknown Urine Color Yellow Urine Clarity Clear Urine pH 6.0 Urine Specific [place] >=1.030 Urine Protein >=300 mg/dL (NEG-TRACE) Urine Glucose (UA) >=1000 mg/dL (NEG) Urine Ketones (Stick) 15 mg/dL (NEG) Urine Blood Small (NEG) Urine Nitrite Negative (NEG) Urine Bilirubin Negative (NEG) Urine Urobilinogen Dipstick 0.2 mg/dL (0.2 mg/dL) Urine Leukocyte Esterase Negative (NEG) Urine RBC 1-2 /HPF (0-2) Urine WBC Occ /HPF (0-4) Urine Amorphous Sediment Present /HPF Urine Bacteria 0 /HPF (0-FEW) Urine Mucus Mod /LPF Urine Opiates Screen Pos (NEG) Urine Methadone Screen Pos (NEG) Urine Barbiturates Neg (NEG) Urine Phencyclidine Screen Neg (NEG) Urine Amphetamine/Methamphetamine Neg (NEG) Urine Benzodiazepines Screen Neg (NEG) Urine Cocaine Screen Neg (NEG) Urine Cannabinoids Screen Pos (NEG) Urine Ethyl Alcohol Neg (NEG) Laboratory Tests 03/03/17 15:11 Laboratory Tests 03/03/17 15:11 EKG EKG EKG shows sinus rhythm with rate of [address] elevations or T-wave inversions, normal axis, QTC 431 ms, as interpreted by me. Radiology/Procedures Radiology/Procedures [address] [address] IMAGING REPORT Signed PATIENT: NICO TRAN ACCOUNT: [id number] : 1970 LOCATION: ER AGE: 46 SEX: M EXAM STATUS: REG ER ORD. PHYSICIAN: IVONNE BOLES MD REASON: chest pain PROCEDURE: PORTABLE CHEST 1V Indication: Chest pain. Technique: Upright portable chest radiograph was obtained. Comparison is from October 23, 2016. Findings: There is minimal atelectasis or less likely infiltrate in the left lung base. The lungs otherwise are clear. There is a calcified granuloma on the right. The heart is not enlarged and there is no heart failure. There is a right PICC line noted. Impression: Minimal atelectasis or infiltrate in the left lung base. DICTATED and SIGNED BY: ALISHA SANTAMARIA MD DATE: 03/03/171534 CC: IVONNE BOLES MD; NO PCP ~ [address] [address] IMAGING REPORT Signed PATIENT: NICO TRAN ACCOUNT: [id number] : 1970 LOCATION: ER AGE: 46 SEX: M EXAM STATUS: REG ER ORD. PHYSICIAN: IVONNE BOLES MD REASON: chest pain to the back PROCEDURE: CT ANGIO CHEST ABD PELVIS CTA of the chest abdomen pelvis with and without contrast HISTORY: Chest pain and abdominal pain that radiates to the back. TECHNIQUE: Noncontrast helical CT scanning of the chest and abdomen and pelvis was performed. After IV infusion of 75 cc of Omnipaque 350, helical CT scanning of the chest and abdomen and pelvis was performed. Multiplanar 2-D reconstructions were generated. Use a MIP algorithm, 3-D reconstructed angiogram was generated. COMPARISON: None available. CHEST CTA: No focal aneurysmal dilatation of the thoracic aorta is seen. There is mild ectasia of the ascending aorta measuring up to 4.1 cm in greatest caliber. No intimal flap or dissection is seen. The heart size is normal. No pericardial effusion is seen. Calcified atheromatous disease of the coronary arteries is seen. Mediastinal lymph nodes are seen which are not significantly enlarged and some exhibit central fatty replacement and therefore most likely representing a benign finding. No enlarged hilar lymphadenopathy is seen. There are prominent axillary lymph nodes bilaterally more prominent on the right side. The largest measures 2.5 cm on the right side. Clinical significance of this is uncertain. Recommend continued clinical follow-up with regard to any palpable lymph nodes in the axillary region. In addition, patient should have regular screening mammography. The study is not optimal for pulmonary emboli evaluation. No lung mass or lung consolidation is evident. No pleural effusion or pneumothorax is evident. The proximal bronchial tree is patent. No osteolytic process or compression fracture is seen. IMPRESSION: No thoracic aortic dissection or focal aneurysmal dilatation is seen. Mild ectasia of the ascending aorta. No acute lung infiltrate. Calcified atheromatous disease of the coronary arteries. Prominent bilateral axillary lymphadenopathy more so on the right side. See discussion above. ABDOMEN AND PELVIS CTA: The liver is unremarkable. 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 The pancreas is unremarkable. The gallbladder is distended and no gallbladder wall thickening is seen. No extrahepatic biliary ductal dilatation is seen. No adrenal mass is seen. No hydronephrosis or renal mass is seen on either side. There is scarring of the lower pole of the left kidney consistent with chronic pyelonephritis. Urinary bladder wall is smooth. No focal aneurysmal dilatation of the abdominal aorta is seen. No intimal flap or dissection is evident. Normal enhancement of the celiac artery and superior mesenteric artery and both main renal arteries and the inferior mesenteric artery is seen. Small enhancing right accessory renal artery is seen. Normal enhancement of the iliac arteries is seen. No occlusive disease or significant stenosis is seen here. Bilateral inguinal lymphadenopathy is seen. The largest lymph node is seen on the right side measuring 25 mm. Bilateral external iliac lymphadenopathy is seen more prominent on the right side largest lymph node here measures 36 mm. Retroperitoneal and periaortic and mesenteric lymphadenopathy is seen. Largest lymph node here is seen on the left periaortic region measuring 19 mm. There is left and right common iliac lymphadenopathy. The largest lymph node is in the left common iliac region measuring 20 mm. The appendix is normal. No obstructive bowel pattern is seen. No free air or free fluid or inflammatory change is evident. No osteolytic process is seen. No compression fracture is seen. IMPRESSION: No abdominal aortic aneurysm or dissection is seen. Abdominal and pelvic lymphadenopathy as discussed above. Therefore, the axillary lymphadenopathy may represent the same disease process such as lymphoma. Distended gallbladder. 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 Chronic pyelonephritis of the left kidney. Electronically signed by: Minoo Cameron MD (03/03/2017 5:35 PM) [facility] DICTATED and SIGNED BY: MINOO CAMERON MD DATE: 03/03/17 170 CC: IVONNE BOLES MD; NO PCP ~ Impressions: Chest pain Elevated lactic acid Abdominal lymphadenopathy Course & Med Decision Making Course & Med Decision Making Pertinent Labs and Imaging studies reviewed. (See chart for details) [] Dragon Disclaimer Dragon Disclaimer This electronic medical record was generated, in whole or in part, using a voice recognition dictation system. Departure Departure Impression: Primary Impression: Chest pain Disposition: 01 HOME, SELF-CARE Admitting Physician: Other Condition: STABLE Referrals: UNKNOWN PCP NAME (PCP) Problem Qualifiers Primary Impression: Chest pain Chest pain type: unspecified Qualified Codes: R07.9 - Chest pain, unspecified IVONNE BOLES MD Mar 03, 2017 14:55
[2017-03-03] MEDS ORDERED: ONDANSETRON PF 4 MG/2 ML VIAL. IV ONE (15:00)
--- NOTE | 2017-03-03 15:04 | EKG ---
[facility] [address] [place] [address] Test Date: 2017-03-03 Test Time: 14:50:27 Pat Name: NICO TRAN Department: Room: Gender: M Track Supervisor: : 1970 Requested By: IVONNE BOLES Order Number: [id number] Reading MD: Ann Schultz Measurements Intervals [place] Rate: 72 P: 52 NE: 152 QRS: 37 QRSD: 94 T: 58 QT: 392 QTc: 431 Interpretive Statements SINUS RHYTHM NORMAL EKG Electronically Signed On 03-04-2017 20:06:15 CDT by Ann Schultz
[2017-03-03] MEDS: MORPHINE SULFATE 4 MG/ML DISP.SYRIN. IV/SQ PRN ×3 (15:20→17:00)
[2017-03-03] MEDS ORDERED: IV NORMAL SALINE 1000ML BAG 1,000 ML IV ONE ×2 (15:30→16:30)
[2017-03-03 15:32] LABS: BASO # 0.1 x10^3/uL (0.0-0.2); BASO % 1 % (0-3); EOS % 1 % (0-3); HEMATOCRIT 40.8 % (39.0-53.0); HEMOGLOBIN 13.4 g/dL (13.0-17.5); LYMPH # 2.6 x10^3/uL (1.0-4.8); LYMPH % 25 % (24-48); MEAN CORPUSCULAR HEMOGLOBIN 30 pg (25-35); MEAN CORPUSCULAR HGB CONC 33 g/dL (31-37); MEAN CORPUSCULAR VOLUME 90 fL (79-100); MONO % 1 % (0-9); NEUT % 73 % (31-73); PLATELET COUNT 259 x10^3/uL (140-400); RED BLOOD COUNT 4.52 x10^6/uL (4.30-5.70); RED CELL DISTRIBUTION WIDTH 15.2 % (11.5-14.5); WHITE BLOOD COUNT 10.6 x10^3/uL (4.0-11.0)
--- NOTE | 2017-03-03 15:38 | RAD ---
Indication: Chest pain. Technique: Upright portable chest radiograph was obtained. Comparison is from October 23, 2016. Findings: There is minimal atelectasis or less likely infiltrate in the left lung base. The lungs otherwise are clear. There is a calcified granuloma on the right. The heart is not enlarged and there is no heart failure. There is a right PICC line noted. Impression: Minimal atelectasis or infiltrate in the left lung base.
[2017-03-03 15:46] LABS: INR 1.4 (0.8-1.1); PROTHROMBIN TIME PATIENT 15.9 SEC (11.7-14.0)
[2017-03-03 15:55] LABS: CALCIUM 9.9 mg/dL (8.5-10.1); GFR 80.4; POTASSIUM 3.2 mmol/L (3.5-5.1)
[2017-03-03 15:55] LABS: BILIRUBIN,URINE NEGATIVE (NEG); GLUCOSE,URINE >=1000 mg/dL (NEG); NITRITE,URINE NEGATIVE (NEG); PROTEIN,URINE >=300 mg/dL (NEG-TRACE); UROBILINOGEN,URINE 0.2 mg/dL (0.2 mg/dL)
[2017-03-03] MEDS ORDERED: IOHEXOL 350 MG/ML 100 ML VIAL. IV ONE (16:00)
[2017-03-03 16:01] LABS: BARBITURATES NEG (NEG); BENZODIAZEPINES NEG (NEG); CANNABINOIDS POS (NEG); COCAINE NEG (NEG); METHADONE POS (NEG); OPIATES POS (NEG); PHENCYCLIDINE NEG (NEG)
[2017-03-03 16:02] LABS: ALBUMIN 3.5 g/dL (3.4-5.0); DIRECT BILIRUBIN 0.2 mg/dL (0.0-0.2); MAGNESIUM 1.8 mg/dL (1.8-2.4); TOTAL BILIRUBIN 0.3 mg/dL (0.2-1.0); TOTAL PROTEIN 8.6 g/dL (6.4-8.2)
[2017-03-03 16:10] LABS: CKMB MASS 0.6 ng/mL (0.0-3.6)
[2017-03-03 16:10] LABS: BACTERIA,URINE 0 /HPF (0-FEW); WBC,URINE OCC /HPF (0-4)
[2017-03-03] MEDS ORDERED: CONTRAST GIVEN MC PRN (16:15)
[2017-03-03 16:43] LABS: % EOS 2 % (0-5); NUCLEATED RBC 9; PLT ESTIMATE ADEQUATE (ADEQUATE)
[2017-03-03 16:46] LABS: TOXIC VACUOLATION PRESENT
[2017-03-03 16:52] LABS: HOWELL-JOLLY BODIES PRESENT
[2017-03-03 16:58] LABS: POIKILOCYTOSIS SLIGHT
--- NOTE | 2017-03-03 17:38 | RAD ---
CTA of the chest abdomen pelvis with and without contrast HISTORY: Chest pain and abdominal pain that radiates to the back. TECHNIQUE: Noncontrast helical CT scanning of the chest and abdomen and pelvis was performed. After IV infusion of 75 cc of Omnipaque 350, helical CT scanning of the chest and abdomen and pelvis was performed. Multiplanar 2-D reconstructions were generated. Use a MIP algorithm, 3-D reconstructed angiogram was generated. COMPARISON: None available. CHEST CTA: No focal aneurysmal dilatation of the thoracic aorta is seen. There is mild ectasia of the ascending aorta measuring up to 4.1 cm in greatest caliber. No intimal flap or dissection is seen. The heart size is normal. No pericardial effusion is seen. Calcified atheromatous disease of the coronary arteries is seen. Mediastinal lymph nodes are seen which are not significantly enlarged and some exhibit central fatty replacement and therefore most likely representing a benign finding. No enlarged hilar lymphadenopathy is seen. There are prominent axillary lymph nodes bilaterally more prominent on the right side. The largest measures 2.5 cm on the right side. Clinical significance of this is uncertain. Recommend continued clinical follow-up with regard to any palpable lymph nodes in the axillary region. In addition, patient should have regular screening mammography. The study is not optimal for pulmonary emboli evaluation. No lung mass or lung consolidation is evident. No pleural effusion or pneumothorax is evident. The proximal bronchial tree is patent. No osteolytic process or compression fracture is seen. IMPRESSION: No thoracic aortic dissection or focal aneurysmal dilatation is seen. Mild ectasia of the ascending aorta. No acute lung infiltrate. Calcified atheromatous disease of the coronary arteries. Prominent bilateral axillary lymphadenopathy more so on the right side. See discussion above. ABDOMEN AND PELVIS CTA: The liver is unremarkable. 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 The pancreas is unremarkable. The gallbladder is distended and no gallbladder wall thickening is seen. No extrahepatic biliary ductal dilatation is seen. No adrenal mass is seen. No hydronephrosis or renal mass is seen on either side. There is scarring of the lower pole of the left kidney consistent with chronic pyelonephritis. Urinary bladder wall is smooth. No focal aneurysmal dilatation of the abdominal aorta is seen. No intimal flap or dissection is evident. Normal enhancement of the celiac artery and superior mesenteric artery and both main renal arteries and the inferior mesenteric artery is seen. Small enhancing right accessory renal artery is seen. Normal enhancement of the iliac arteries is seen. No occlusive disease or significant stenosis is seen here. Bilateral inguinal lymphadenopathy is seen. The largest lymph node is seen on the right side measuring 25 mm. Bilateral external iliac lymphadenopathy is seen more prominent on the right side largest lymph node here measures 36 mm. Retroperitoneal and periaortic and mesenteric lymphadenopathy is seen. Largest lymph node here is seen on the left periaortic region measuring 19 mm. There is left and right common iliac lymphadenopathy. The largest lymph node is in the left common iliac region measuring 20 mm. The appendix is normal. No obstructive bowel pattern is seen. No free air or free fluid or inflammatory change is evident. No osteolytic process is seen. No compression fracture is seen. IMPRESSION: No abdominal aortic aneurysm or dissection is seen. Abdominal and pelvic lymphadenopathy as discussed above. Therefore, the axillary lymphadenopathy may represent the same disease process such as lymphoma. Distended gallbladder. 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 Chronic pyelonephritis of the left kidney. Electronically signed by: Live Cameron MD (03/03/2017 5:35 PM) [facility]
[2017-03-03 18:40] VITALS: BP 144/81
[2017-03-03 18:51] VITALS: BP 144/81
[2017-03-03] MEDS: MORPHINE SULFATE 4 MG/ML DISP.SYRIN. IV PRN ×3 (19:01→23:42)
[2017-03-03] MEDS ORDERED: PIPE4.5F2 IV (19:58)
[2017-03-03] MEDS ORDERED: [UNRECOGNIZED DRUG - OTHER] IV SCH (22:00)
[2017-03-03] MEDS ORDERED: PIPERACILLIN TAZO DEXTROSE ISO IV SCH (22:00)
[2017-03-03 22:39] VITALS: BP 123/67
[2017-03-03] MEDS: oxyCODONE IR 5 MG TABLET PO PRN (22:39)
[2017-03-03] MEDS: PIPERACILLIN/TAZOBACTAM 4.5 GM in IV NORMAL SALINE 100ML 100 ML IV SCH (22:39)
[2017-03-03] MEDS: ONDANSETRON PF 4 MG/2 ML VIAL. IV PRN (23:11)
[2017-03-03] MEDS: ALPRAZolam 0.5 MG TABLET PO PRN (23:37)
[2017-03-03] MEDS: METHADONE 10 MG TABLET. PO SCH (23:46)
[2017-03-04 03:19] VITALS: BP 125/67
--- NOTE | 2017-03-04 04:12 | ACF ---
Admission Forms Criteria CARDIOLOGY GRG Clinical Indications for Admission to Inpatient Care ( Habematolel/check or initial the applicable condition/criteria) Hospital admission is needed for appropriate care of the patient because of ANY ONE of the following: [ ] I. Hemodynamic instability as indicated by ALL of the following (1)(2)(3) (4)(5)(6)(7)(8)(9)(10) [ ]a) Vital sign abnormality not readily corrected by appropriate treatment with 12-24 hours for ANY ONE: [ ]i) Hypotension that persists despite appropriate treatment (eg, volume repletion) [ ]ii) Tachycardiathat persists despite appropriate tx ( e.g., analgesia, fluids, sedation as indicated [ ]iii) Orthostatic vital sign changes that persists despite appropriate treatment (eg, volume repletion) [ ]b) Vital sign abnormailty that is severe indicated by ANY ONE of the following: [ ]i) Inadequate perfusion indicated by ANY ONE of the following: [ ] 1) Lactic acidosis (> 2 mmol/L) [ ] 2) New abnormal capillary refill (> 3 seconds) [ ] 3) Reduced urine output [ ] 4) New altered mental status [ ] 5) Myocardial Ischemia [ ] 6) Other metabolic acidosis (arterial pH <7.35 ) not otherwise explained. [ ]ii) Mean arterial pressure[A] less than 60 mm Hg [ ]iii) Mean arterial pressure[A] less than 70 mm Hg after 30 minutes of appropriate treatment (eg, fluid resuscitation) [ ]iv) Sustained heart rate greater than 120 beats per minute in adult or child 6 years or older[B] [ ]v) IV inotropic or vasopressor medication required to maintain adequate blood pressure or perfusion [ ] II. Severe heart failure as indicated by ANY ONE of the following(17)(18) [ ]a) Respiratory distress [ ]b) Hypotension [ ]c) Debilitating anasarca refractory to therapy (eg, tissue breakdown with infection)[C](19) [ ]d) Cardiac arrhythmias of immediate concern [ ]e) Myocardial ischemia [ ] III. Cardiac arrhythmias or findings of immediate concern indicated by ANY ONE of the following (21)(22): [ ] a) Heart rhythms that are inherently dangerous or unstable indicated by ANY ONE of the following (23)(24)(25): [ ] i) Resuscitated ventricular fibrillation or cardiac arrest [ ] ii) Ventricular escape rhythm [ ] iii) Sustained ventricular tachycardia (30 seconds or more of ventricular rhythm at greater than 100 beats per minute) [ ] iv) Nonsustained ventricular tachycardia and ANY ONE of the following: [ ] 1) Suspected cardiac ischemia as cause or consequence of ventricular tachycardia [ ] 2) Acute myocarditis [ ] b) Unstable cardiac conduction defects indicated by ANY ONE of the following(25)(26)(27) [ ] i) Type II second-degree atrioventricular block [ ]ii) Third-degree atrioventricular block [ ]iii) New-onset left bundle branch block with suspected myocardial ischemia [ ]c) Any heart rhythm and ANY ONE of the following (23)(24)(28)(29) (30) [ ] i) Continuous long-term ECG monitoring needed (e.g., initiation of drug requiring monitoring for more than 24 hours) [ ] ii) Patient has automatic implanted cardioverter defibrillator that is repeatedly firing, malfunctioning, or in need of immediate adjustment of settings beyond the scope of ambulatory or observation care [ ]d) Heart rhythms of concern due to ANY ONE of the following: [ ] i) Hypotension [ ] ii) Respiratory distress [ ] iii) Association with other significant symptoms (e.g., bradycardia with syncope or ongoing dizziness, supraventricular tachycardia with chest pain (28)(29)(31) [ ] IV. Monitoring for cardiac contusion beyond the scope of observation care needed [A](32)(33)(34) [ ] V. Surgical or device complication (e.g., valve replacement complication , ICD disfunction or pacemaker dysfunction) (49)(50)(51)(52)(53)(54) [ ] . Inpatient palliative care needed. [F](51)(52) Also use Inpatient Palliative Care Criteria [ ] VII. Nonbacterial thrombotic (marantic) endocarditis(43)(44)(55)(56)(57) [ X] VIII. Cardiology condition, symptom, or finding for which emergency and observation care has failed or are not considered appropriate. [ ] IX. Acute valvular disease requiring inpatient as indicated by ANY ONE of the following (40)(41) [ ]a) Acute valvular regurgitation (42) [ ]b) Noninfectious valvulitis (43)(44) [ ]c) Obstructive valve thrombosis (45)(46) [ ]d) Paravalvular leak(47)(48) [ ]e) Other significant valvular disorder remaining after emergency or observation level of care (as appropriate) [ ]X. Pericardial disease requiring inpatient treatment as indicated by ANY ONE of the following (35)(36)(37)(38) [ ]a) Suspected tamponade [ ]b) Hemopericardium [ ]c) Other significant pericardial disorder remaining after emergency or observation level of care (as appropriate)(39) [ ] XI. Cardiac ischemia beyond scope of emergency and observation care. [ ] XII. Cyanotic heart disease requiring inpatient care as indicated by 1 or more of the following(58)(59)(60): [ ]a) Acute onset of hypoxemia [ ]b) Exacerbation [ ] XIII. Hypertension requiring inpatient treatment as indicated by ANYONE of the following(11)(12)(13)(14): [ ]a) Severe hypertension (SBP greater than 180 mm Hg or DBP greater than 110 mm Hg, or greater than the 95th percentile for age, gender, and height in pediatric patients) that cannot be controlled (eg, to SBP less than 160 mm Hg and DBP less than 100 mm Hg) by emergency department or observation care treatment(15) [ ]b) Acute end organ damage secondary to hypertension (SBP greater than 140 mm Hg or DBP greater than 90 mm Hg) as indicated by ANYONE of the following: [ ] i) Hypertensive encephalopathy (eg, Altered mental status)(16) [ ] ii) Cerebral infarction [ ] iii) Intracranial hemorrhage [ ] iv) Myocardial ischemia or infarction [ ] v) Heart failure (eg, pulmonary edema) [ ] vi) Aortic dissection [ ] vii) Increased creatinine (new) with reduction of more than 50% in estimated glomerular filtration rate from baseline [ ] viii) Papilledema [ ] ix) Retinal hemorrhage [ ] x) Microangiopathic hemolytic anemia [ ] xi) Seizure [ ] xii) Other significant finding secondary to hypertension [ ] XIV. Complications of transplanted heart indicated by ANY ONE of the following(61): [ ]a) Acute graft rejection requiring inpatient management (eg, intravenous imunosuppression)(62)(63) [ ]b) Acute graft heart failure indicated by ANY ONE of the following(64): [ ] i) Hemodynamic instability [ ] ii) Cardiac arrhythmias of immediate concern [ ] iii) Pulmonary edema that is very severe (eg, mechanical ventilation needed, imminent or likely, need for 100% oxygen to keep oxygen saturation above 90%) [ ] iv) Pulmonary edema that is persistent as indicated by ALL of the following: [ ] 1) New need for oxygen therapy to keep oxygen saturation above 90 % (or increased FiO2 need from baseline) [ ] 2) Has not improved sufficiently with emergency department or observation care IV diuretics or other heart failure treatments[E]. [ ] iv) Altered mental status that is severe or persistent [ ] iv) Increased creatinine (new on laboratory test) with reduction of more than 50% in estimated glomerular filtration rate from baseline [ ] iv) Progressively (ongoing) rising creatinine (known from past laboratory test) with reduction of more than 25% in estimated glomerular filtration rate from baseline [ ] iv) Acute renal failure [ ] iv) Acute peripheral ischemia (eg, examination shows pulseless, cool, mottled, or cyanotic extremity) [ ] iv) Pulmonary artery catheter monitoring needed [ ] iv) Other sign or symptom of heart failure requiring inpatient treatment (ie, too severe or not responsive to outpatient and observation care treatment) [ ]c) Infection requiring inpatient management (eg, Hemodynamic instability, need for intravenous antimicrobial treatment)(66)(67)(68)(69)(70) [ ]d) Cardiac allograft vasculopathy requiring inpatient management (eg evidence of cardiacischemia)(71) [ ]e) Other complication of transplanted heart (eg, stroke, severe pulmonary hypertension, severe valvular dysfunction) requiring inpatient management(72) The original [facility] content created by [facility] has been revised. The portions of the content which have been revised are identified through the use of italic text, and [facility] has neither reviewed nor approved the modified material. All other unmodified content is copyright [facility] [employer]. Please see references footnoted in the original [facility] edition 2014 Admission Criteria Met?: Yes RADHA HERBERT Mar 04, 2017 04:12
[2017-03-04] MEDS: PIPERACILLIN/TAZOBACTAM 4.5 GM in IV NORMAL SALINE 100ML 100 ML IV SCH ×3 (05:50→21:55)
[2017-03-04] MEDS: MORPHINE SULFATE 4 MG/ML DISP.SYRIN. IV PRN (05:55)
[2017-03-04 06:36] LABS: BASO # 0.2 x10^3/uL (0.0-0.2); BASO % 1 % (0-3); EOS % 1 % (0-3); HEMATOCRIT 34.9 % (39.0-53.0); LYMPH # 1.9 x10^3/uL (1.0-4.8); LYMPH % 11 % (24-48); MEAN CORPUSCULAR HEMOGLOBIN 30 pg (25-35); MEAN CORPUSCULAR HGB CONC 34 g/dL (31-37); MEAN CORPUSCULAR VOLUME 88 fL (79-100); MONO % 2 % (0-9); NEUT % 86 % (31-73); PLATELET COUNT 254 x10^3/uL (140-400); RED BLOOD COUNT 3.98 x10^6/uL (4.30-5.70); RED CELL DISTRIBUTION WIDTH 14.8 % (11.5-14.5); WHITE BLOOD COUNT 17.1 x10^3/uL (4.0-11.0)
[2017-03-04] MEDS: ALPRAZolam 0.5 MG TABLET PO PRN ×2 (06:54→20:55)
[2017-03-04 07:17] LABS: ALBUMIN 2.8 g/dL (3.4-5.0); ALBUMIN/GLOBULIN RATIO 0.6 (1.0-1.7); CALCIUM 9.2 mg/dL (8.5-10.1); CREATININE 0.7 mg/dL (0.7-1.3); GFR 121.4; POTASSIUM 3.8 mmol/L (3.5-5.1); TOTAL BILIRUBIN 0.2 mg/dL (0.2-1.0); TOTAL PROTEIN 7.5 g/dL (6.4-8.2)
[2017-03-04 07:27] VITALS: BP 142/81
[2017-03-04] MEDS: ASPIRIN 325 MG TABLET PO SCH (08:05)
[2017-03-04] MEDS: PIOGLITAZONE 15 MG TABLET. PO SCH (08:05)
[2017-03-04] MEDS: FERROUS SULFATE 325 MG TABLET. PO SCH (08:05)
[2017-03-04] MEDS: ONDANSETRON PF 4 MG/2 ML VIAL. IV PRN (08:05)
[2017-03-04] MEDS: Canagliflozin (Invokana) 300 MG TABLET PO SCH (08:06)
[2017-03-04] MEDS: oxyCODONE IR 5 MG TABLET PO PRN ×2 (08:06→15:24)
[2017-03-04] MEDS ORDERED: METHADONE 10 MG TABLET. PO ONE ×2 (08:30)
--- NOTE | 2017-03-04 09:51 | RAD ---
Indication: Uncontrolled pain and abdominal distention. Technique: Right upper quadrant ultrasound was performed. No comparison is available. Findings: Pancreas is mostly obscured by bowel gas. IVC evaluation is also limited by poor acoustic window, visualized portion is within normal limits. The liver is increased in size, measuring almost 24 cm longitudinal. It is also mildly increased in echogenicity. There is still visualization of periportal fat. There is cholelithiasis and gallbladder distention. Gallbladder wall does not appear thickened and there is no pericholecystic fluid. Common bile duct measures 3 mm. Right kidney is without hydronephrosis or mass. Impression: 1. Cholelithiasis and gallbladder distention. No gallbladder wall thickening or pericholecystic fluid. If strong clinical suspicion for acute cholecystitis, consider hepatobiliary scintigraphy. 2. Mild fatty infiltration of an enlarged liver.
[2017-03-04 10:03] LABS: NUCLEATED RBC 5
[2017-03-04 10:04] LABS: PLT ESTIMATE ADEQUATE (ADEQUATE)
[2017-03-04 10:40] VITALS: BP 132/73
--- NOTE | 2017-03-04 11:15 | PDOC2 ---
BRITTANY PERSON APRN 03/04/17 1115: Consult: Consulted March 03, [address] 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 Previous swab cx grew enterococcus pcnS Refer to previous consult note from 02/07/2017 for further details. He was discharged home on 6 week course of Zosyn. On follow-up in the office this past week he had been feeling and doing well. Since that time, he has developed fever, mild headache, chills and aches as well as chest pain. He reports some right knee pain but no more than usual. Denies redness or swelling. He didn't realize he had a rash until it was pointed out to him. Denies pruritus , SOA, wheezing or sore throat. Family members well. + N/V. PE: GENERAL: Lying down, flushed HENT: Oral cavity, pharynx pink. No lesions. Dentures in place NECK: Supple LUNGS: Clear CV: Normal S1 and S2 ABD: BS present, soft, NT EXT: No edema or cyanosis SKIN: Generalized fine macular rash CHAINMAN: Sleepy, follows commands RUE-PICC. clean Labs: Reviewed Imaging reviewed Sepsis, ? 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 Intra-op cultures no growth, had been on abx prior to surgery h/o Enterococcus-PNC sensitive from 02/01, swab cx of wound Diabetes Plan Continue Zosyn Add micafungin and vanc f/u cultures Monitor labs D/w Dr. Joe Thank you HELEN RODARTE MD 03/04/17 1225: Attending Co-Sign The patient was seen and interviewed as well as examined at the bedside. The chart was reviewed. The case was discussed. Agree with the plan of care. BRITTANY PERSON APRN Mar 04, 2017 11:15 HELEN RODARTE MD Mar 04, 2017 12:25
--- NOTE | 2017-03-04 11:27 | PDOC2 ---
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 He was discharged on IV antibiotics late January and had been improving until ~6-7 days ago when noted to have fevers and progressive multifocal body aches. Knee seems to be stable per him. Denies recent unintentional weight loss or drenching night sweats. Denies h/o IVDU or known HIV or hepatitis CTA found multifocal small volume adenopathy and we were consulted to comment on this. Today continues to feel poorly. He has not noted the rash on his legs or trunk. Past Medical History Cardiovascular: No pertinent hx Pulmonary: No pertinent hx CENTRAL NERVOUS SYSTEM: Other GI: No pertinent hx Heme/Onc: No pertinent hx Hepatobiliary: No pertinent hx Psych: No pertinent hx Musculoskeletal: Other Rheumatologic: No pertinent hx Infectious disease: No pertinent hx Renal/: No pertinent hx Endocrine: Hypothyroidism Past Surgical History Past Surgical History: Cystoscopy, Other Family History Family History: Coronary Artery Disease, Heart Disease Social History ALCOHOL: none Drugs: None, Marijuana Lives: with Family Domestic Violence: Neg Current Problem List Problem List Problems Medical Problems: (1) Chest pain Status: Acute Current Medications Current Medications Current Medications Morphine Sulfate 4 mg PRN Q15MIN PRN IV/SQ PAIN GREATER THAN 3/10 Last administered on 03/03/17 17:00; Start 03/03/17 at 15:00; Stop 03/04/17 at 14:59 Ondansetron HCl (Zofran) 4 mg 1X ONCE IV Last administered on 03/03/17 15:20 ; Start 03/03/17 at 15:00; Stop 03/03/17 at 15:01; Status DC Sodium Chloride 1,000 ml @ 1,000 mls/hr 1X ONCE IV Last administered on 15:20; Start 03/03/17 at 15:30; Stop 03/03/17 at 16:29; Status DC Iohexol (Omnipaque 350 Mg/ml) 90 ml 1X ONCE IV Last administered on 03/03/17 16:30; Start 03/03/17 at 16:00; Stop 03/03/17 at 16:03; Status DC Info (Do NOT chart on this entry -- for MONITORING) 1 each PRN DAILY PRN MC SEE COMMENTS; Start 03/03/17 at 16:15; Stop 03/05/17 at 16:14 Sodium Chloride 1,000 ml @ 1,000 mls/hr 1X ONCE IV Last administered on 16:55; Start 03/03/17 at 16:30; Stop 03/03/17 at 17:29; Status DC Ondansetron HCl (Zofran) 4 mg PRN Q8HRS PRN IV NAUSEA/VOMITING Last administered on 03/04/17 08:05; Start 03/03/17 at 18:00; Stop 03/04/17 at 17:59 Morphine Sulfate 4 mg PRN Q2HR PRN IV PAIN Last administered on 03/04/17 05:55 ; Start 03/03/17 at 18:00; Stop 03/04/17 at 17:59 Aspirin (Claudy Aspirin) 325 mg DAILY PO Last administered on 03/04/17 08:05; Start 03/04/17 at 09:00 Ferrous Sulfate (Feosol) 325 mg DAILY PO Last administered on 03/04/17 08:05; Start 03/04/17 at 09:00 Metformin HCl (Glucophage) 500 mg BIDWMEALS PO ; Start 03/06/17 at 08:00 Methadone HCl (Dolophine) 20 mg QID PO Last administered on 03/03/17 23:46; Start 03/04/17 at 09:00 Pioglitazone HCl (Actos) 30 mg DAILY PO Last administered on 03/04/17 08:05; Start 03/04/17 at 09:00 Non-Formulary Medication 300 mg DAILY PO ; Start 03/04/17 at 09:00; Status UNV Oxycodone HCl (Roxicodone) 40 mg PRN Q4HRS PRN PO SEVERE PAIN Last administered on 03/04/17 08:06; Start 03/03/17 at 22:30 Non-Formulary Medication 4.5 gm Q8HRS IV ; Start 03/03/17 at 22:00; Status UNV Piperacillin Sod/ Tazobactam Sod 4.5 gm/Sodium Chloride 100 ml @ 200 mls/hr Q8HRS IV Last administered on 03/04/17 05:50; Start 03/03/17 at 23:00 Alprazolam (Xanax) 0.5 mg PRN Q6HRS PRN PO ANXIETY / AGITATION Last administered on 03/04/17 06:54; Start 03/03/17 at 23:30 Methadone HCl (Dolophine) 20 mg 1X ONCE PO Last administered on 03/04/17 00: 00; Start 03/04/17 at 00:00; Stop 03/04/17 at 00:01; Status DC Methadone HCl (Dolophine) 20 mg 1X ONCE PO Last administered on 03/04/17 08: 25; Start 03/04/17 at 08:30; Stop 03/04/17 at 08:31; Status DC Micafungin Sodium 100 mg/Dextrose 100 ml @ 100 mls/hr Q24H IV ; Start 03/04/17 at 11:15; Status UNV Vancomycin HCl (Vanco Per Pharmacy) 1 each PRN DAILY PRN MC SEE COMMENTS; Start 03/04/17 at 11:15; Status UNV Active Scripts Active Reported Zosyn 4.5 Gm Pre-Mix Bag (Vtnkquwzhuxo-Hihv-Nbfsanpe,Iso) 4.5 Gm/100 Ml Froz.piggy 4.5 Gm IV Q8HRS Aspirin 325 Mg Tablet 1 Tab PO DAILY Celebrex (Celecoxib) 200 Mg Capsule 1 Cap PO DAILY Oxycodone Hcl 20 Mg Tablet 40 Mg PO PRN Q4-6HRS PRN Ferrous Sulfate 325 Mg Tablet 1 Tab PO DAILY Invokana (Canagliflozin) 300 Mg Tablet 300 Mg PO DAILY Actos (Pioglitazone Hcl) 15 Mg Tablet 30 Mg PO DAILY Metformin Hcl 500 Mg Tablet 500 Mg PO BIDWMEALS Methadone Hcl 5 Mg Tablet 20 Mg PO QID Allergies Allergies: Coded Allergies: ibuprofen (Verified Allergy, Intermediate, urinary retention,swelling, ) MD HALL'tulio Toradol and Celebrex ROS General: YES: Chills, Fatigue PSYCHOLOGICAL ROS: No: Anxiety Eyes: No Blurry vision HEENT: No: Heacaches ALLERGY AND IMMUNOLOGY: No: Seasonal Allergies Hematological and Lymphatic: YES: Swollen Lymph Nodes Respiratory: No: Cough Cardiovascular: yes Chest Pain Gastrointestinal: No Nausea Genitourinary: No Dysuria Musculoskeletal: Yes Joint Stiffness Skin: Yes Rash Physical Exam General: Other (Alert, but drowsy) HEENT: Atraumatic Lungs: Clear to auscultation Heart: Regular rate Abdomen: Soft, No hepatosplenomegaly Extremities: No clubbing, No edema Skin: Other (Diffuse lacy raised erythematous rash on legs and trunk) Neuro: Normal speech Psych/Mental Status: Mental status NL MUSCULOSKELETAL: Other (Right knee incision C/D/I. Mild warmth, but symmetric) Vitals VITALS Vital Signs Date Time Temp Pulse Resp B/P (MAP) Pulse Ox O2 Delivery O2 Flow Rate FiO2 03/04/17 10:40 99.0 91 19 132/73 (92) 95 Room Air 99.0 Labs Labs Laboratory Tests Test 03/03/17 15:11 03/03/17 15:40 03/03/17 20:00 03/03/17 23:45 White Blood Count 10.6 x10^3/uL (4.0-11.0) Red Blood Count 4.52 x10^6/uL (4.30-5.70) Hemoglobin 13.4 g/dL (13.0-17.5) Hematocrit 40.8 % (39.0-53.0) Mean Corpuscular Volume 90 fL (79-100) Mean Corpuscular Hemoglobin 30 pg (25-35) Mean Corpuscular Hemoglobin Concent 33 g/dL (31-37) Red Cell Distribution Width 15.2 % (11.5-14.5) Platelet Count 259 x10^3/uL (140-400) Neutrophils (%) (Auto) 73 % (31-73) Lymphocytes (%) (Auto) 25 % (24-48) Monocytes (%) (Auto) 1 % (0-9) Eosinophils (%) (Auto) 1 % (0-3) Basophils (%) (Auto) 1 % (0-3) Neutrophils # (Auto) 7.7 x10^3uL (1.8-7.7) Lymphocytes # (Auto) 2.6 x10^3/uL (1.0-4.8) Monocytes # (Auto) 0.1 x10^3/uL (0.0-1.1) Eosinophils # (Auto) 0.2 x10^3/uL (0.0-0.7) Basophils # (Auto) 0.1 x10^3/uL (0.0-0.2) Segmented Neutrophils % 34 % (35-66) Band Neutrophils % 44 % (0-9) Lymphocytes % 18 % (24-48) Monocytes % 2 % (0-10) Eosinophils % 2 % (0-5) Nucleated Red Blood Cells 9 Toxic Vacuolation Present Dohle Bodies Present Platelet Estimate Adequate (ADEQUATE) Large Platelets Present Poikilocytosis Slight Bertrand-[place] Bodies Present Prothrombin Time 15.9 SEC (11.7-14.0) Prothromb Time International Ratio 1.4 (0.8-1.1) Sodium Level 133 mmol/L (136-145) Potassium Level 3.2 mmol/L (3.5-5.1) Chloride Level 92 mmol/L (98-107) Carbon Dioxide Level 29 mmol/L (21-32) Anion Gap 12 (6-14) Blood Urea Nitrogen 16 mg/dL (8-26) Creatinine 1.0 mg/dL (0.7-1.3) Estimated GFR (Cockcroft-Gault) 80.4 Glucose Level 193 mg/dL (70-99) Lactic Acid Level 3.2 mmol/L (0.4-2.0) 1.2 mmol/L (0.4-2.0) Calcium Level 9.9 mg/dL (8.5-10.1) Magnesium Level 1.8 mg/dL (1.8-2.4) Total Bilirubin 0.3 mg/dL (0.2-1.0) Direct Bilirubin 0.2 mg/dL (0.0-0.2) Aspartate Amino Transf (AST/SGOT) 270 U/L (15-37) Alanine Aminotransferase (ALT/SGPT) 116 U/L (16-63) Alkaline Phosphatase 383 U/L (46-116) Creatine Kinase 562 U/L (39-308) Creatine Kinase MB (Mass) 0.6 ng/mL (0.0-3.6) Creatine Kinase MB Relative Index 0.1 % (0-4) Troponin I Quantitative < 0.017 ng/mL (0.000-0.055) < 0.017 ng/mL (0.000-0.055) [id number]-[id number]-Type Natriuretic Peptide 304 pg/mL (0-124) Total Protein 8.6 g/dL (6.4-8.2) Albumin 3.5 g/dL (3.4-5.0) Lipase 76 U/L (73-393) Thyroid Stimulating Hormone (TSH) 1.215 uIU/mL (0.358-3.74) Urine Collection Type Unknown Urine Color Yellow Urine Clarity Clear Urine pH 6.0 Urine Specific [place] >=1.030 Urine Protein >=300 mg/dL (NEG-TRACE) Urine Glucose (UA) >=1000 mg/dL (NEG) Urine Ketones (Stick) 15 mg/dL (NEG) Urine Blood Small (NEG) Urine Nitrite Negative (NEG) Urine Bilirubin Negative (NEG) Urine Urobilinogen Dipstick 0.2 mg/dL (0.2 mg/dL) Urine Leukocyte Esterase Negative (NEG) Urine RBC 1-2 /HPF (0-2) Urine WBC Occ /HPF (0-4) Urine Amorphous Sediment Present /HPF Urine Bacteria 0 /HPF (0-FEW) Urine Mucus Mod /LPF Urine Opiates Screen Pos (NEG) Urine Methadone Screen Pos (NEG) Urine Barbiturates Neg (NEG) Urine Phencyclidine Screen Neg (NEG) Urine Amphetamine/Methamphetamine Neg (NEG) Urine Benzodiazepines Screen Neg (NEG) Urine Cocaine Screen Neg (NEG) Urine Cannabinoids Screen Pos (NEG) Urine Ethyl Alcohol Neg (NEG) Test 03/04/17 06:25 White Blood Count 17.1 x10^3/uL (4.0-11.0) Red Blood Count 3.98 x10^6/uL (4.30-5.70) Hemoglobin 12.0 g/dL (13.0-17.5) Hematocrit 34.9 % (39.0-53.0) Mean Corpuscular Volume 88 fL (79-100) Mean Corpuscular Hemoglobin 30 pg (25-35) Mean Corpuscular Hemoglobin Concent 34 g/dL (31-37) Red Cell Distribution Width 14.8 % (11.5-14.5) Platelet Count 254 x10^3/uL (140-400) Neutrophils (%) (Auto) 86 % (31-73) Lymphocytes (%) (Auto) 11 % (24-48) Monocytes (%) (Auto) 2 % (0-9) Eosinophils (%) (Auto) 1 % (0-3) Basophils (%) (Auto) 1 % (0-3) Neutrophils # (Auto) 14.6 x10^3uL (1.8-7.7) Lymphocytes # (Auto) 1.9 x10^3/uL (1.0-4.8) Monocytes # (Auto) 0.3 x10^3/uL (0.0-1.1) Eosinophils # (Auto) 0.1 x10^3/uL (0.0-0.7) Basophils # (Auto) 0.2 x10^3/uL (0.0-0.2) Segmented Neutrophils % 51 % (35-66) Band Neutrophils % 33 % (0-9) Lymphocytes % 16 % (24-48) Nucleated Red Blood Cells 5 Platelet Estimate Adequate (ADEQUATE) Sodium Level 134 mmol/L (136-145) Potassium Level 3.8 mmol/L (3.5-5.1) Chloride Level 96 mmol/L (98-107) Carbon Dioxide Level 27 mmol/L (21-32) Anion Gap 11 (6-14) Blood Urea Nitrogen 12 mg/dL (8-26) Creatinine 0.7 mg/dL (0.7-1.3) Estimated GFR (Cockcroft-Gault) 121.4 BUN/Creatinine Ratio 17 (6-20) Glucose Level 98 mg/dL (70-99) Calcium Level 9.2 mg/dL (8.5-10.1) Total Bilirubin 0.2 mg/dL (0.2-1.0) Aspartate Amino Transf (AST/SGOT) 218 U/L (15-37) Alanine Aminotransferase (ALT/SGPT) 90 U/L (16-63) Alkaline Phosphatase 375 U/L (46-116) Troponin I Quantitative < 0.017 ng/mL (0.000-0.055) Total Protein 7.5 g/dL (6.4-8.2) Albumin 2.8 g/dL (3.4-5.0) Albumin/Globulin Ratio 0.6 (1.0-1.7) Laboratory Tests Test 03/03/17 15:11 03/03/17 15:40 03/03/17 20:00 03/03/17 23:45 White Blood Count 10.6 x10^3/uL (4.0-11.0) Red Blood Count 4.52 x10^6/uL (4.30-5.70) Hemoglobin 13.4 g/dL (13.0-17.5) Hematocrit 40.8 % (39.0-53.0) Mean Corpuscular Volume 90 fL (79-100) Mean Corpuscular Hemoglobin 30 pg (25-35) Mean Corpuscular Hemoglobin Concent 33 g/dL (31-37) Red Cell Distribution Width 15.2 % (11.5-14.5) Platelet Count 259 x10^3/uL (140-400) Neutrophils (%) (Auto) 73 % (31-73) Lymphocytes (%) (Auto) 25 % (24-48) Monocytes (%) (Auto) 1 % (0-9) Eosinophils (%) (Auto) 1 % (0-3) Basophils (%) (Auto) 1 % (0-3) Neutrophils # (Auto) 7.7 x10^3uL (1.8-7.7) Lymphocytes # (Auto) 2.6 x10^3/uL (1.0-4.8) Monocytes # (Auto) 0.1 x10^3/uL (0.0-1.1) Eosinophils # (Auto) 0.2 x10^3/uL (0.0-0.7) Basophils # (Auto) 0.1 x10^3/uL (0.0-0.2) Segmented Neutrophils % 34 % (35-66) Band Neutrophils % 44 % (0-9) Lymphocytes % 18 % (24-48) Monocytes % 2 % (0-10) Eosinophils % 2 % (0-5) Nucleated Red Blood Cells 9 Toxic Vacuolation Present Dohle Bodies Present Platelet Estimate Adequate (ADEQUATE) Large Platelets Present Poikilocytosis Slight Bertrand-[place] Bodies Present Prothrombin Time 15.9 SEC (11.7-14.0) Prothromb Time International Ratio 1.4 (0.8-1.1) Sodium Level 133 mmol/L (136-145) Potassium Level 3.2 mmol/L (3.5-5.1) Chloride Level 92 mmol/L (98-107) Carbon Dioxide Level 29 mmol/L (21-32) Anion Gap 12 (6-14) Blood Urea Nitrogen 16 mg/dL (8-26) Creatinine 1.0 mg/dL (0.7-1.3) Estimated GFR (Cockcroft-Gault) 80.4 Glucose Level 193 mg/dL (70-99) Lactic Acid Level 3.2 mmol/L (0.4-2.0) 1.2 mmol/L (0.4-2.0) Calcium Level 9.9 mg/dL (8.5-10.1) Magnesium Level 1.8 mg/dL (1.8-2.4) Total Bilirubin 0.3 mg/dL (0.2-1.0) Direct Bilirubin 0.2 mg/dL (0.0-0.2) Aspartate Amino Transf (AST/SGOT) 270 U/L (15-37) Alanine Aminotransferase (ALT/SGPT) 116 U/L (16-63) Alkaline Phosphatase 383 U/L (46-116) Creatine Kinase 562 U/L (39-308) Creatine Kinase MB (Mass) 0.6 ng/mL (0.0-3.6) Creatine Kinase MB Relative Index 0.1 % (0-4) Troponin I Quantitative < 0.017 ng/mL (0.000-0.055) < 0.017 ng/mL (0.000-0.055) TE-Huz-Q-Type Natriuretic Peptide 304 pg/mL (0-124) Total Protein 8.6 g/dL (6.4-8.2) Albumin 3.5 g/dL (3.4-5.0) Lipase 76 U/L (73-393) Thyroid Stimulating Hormone (TSH) 1.215 uIU/mL (0.358-3.74) Urine Collection Type Unknown Urine Color Yellow Urine Clarity Clear Urine pH 6.0 Urine Specific [place] >=1.030 Urine Protein >=300 mg/dL (NEG-TRACE) Urine Glucose (UA) >=1000 mg/dL (NEG) Urine Ketones (Stick) 15 mg/dL (NEG) Urine Blood Small (NEG) Urine Nitrite Negative (NEG) Urine Bilirubin Negative (NEG) Urine Urobilinogen Dipstick 0.2 mg/dL (0.2 mg/dL) Urine Leukocyte Esterase Negative (NEG) Urine RBC 1-2 /HPF (0-2) Urine WBC Occ /HPF (0-4) Urine Amorphous Sediment Present /HPF Urine Bacteria 0 /HPF (0-FEW) Urine Mucus Mod /LPF Urine Opiates Screen Pos (NEG) Urine Methadone Screen Pos (NEG) Urine Barbiturates Neg (NEG) Urine Phencyclidine Screen Neg (NEG) Urine Amphetamine/Methamphetamine Neg (NEG) Urine Benzodiazepines Screen Neg (NEG) Urine Cocaine Screen Neg (NEG) Urine Cannabinoids Screen Pos (NEG) Urine Ethyl Alcohol Neg (NEG) Test 03/04/17 06:25 White Blood Count 17.1 x10^3/uL (4.0-11.0) Red Blood Count 3.98 x10^6/uL (4.30-5.70) Hemoglobin 12.0 g/dL (13.0-17.5) Hematocrit 34.9 % (39.0-53.0) Mean Corpuscular Volume 88 fL (79-100) Mean Corpuscular Hemoglobin 30 pg (25-35) Mean Corpuscular Hemoglobin Concent 34 g/dL (31-37) Red Cell Distribution Width 14.8 % (11.5-14.5) Platelet Count 254 x10^3/uL (140-400) Neutrophils (%) (Auto) 86 % (31-73) Lymphocytes (%) (Auto) 11 % (24-48) Monocytes (%) (Auto) 2 % (0-9) Eosinophils (%) (Auto) 1 % (0-3) Basophils (%) (Auto) 1 % (0-3) Neutrophils # (Auto) 14.6 x10^3uL (1.8-7.7) Lymphocytes # (Auto) 1.9 x10^3/uL (1.0-4.8) Monocytes # (Auto) 0.3 x10^3/uL (0.0-1.1) Eosinophils # (Auto) 0.1 x10^3/uL (0.0-0.7) Basophils # (Auto) 0.2 x10^3/uL (0.0-0.2) Segmented Neutrophils % 51 % (35-66) Band Neutrophils % 33 % (0-9) Lymphocytes % 16 % (24-48) Nucleated Red Blood Cells 5 Platelet Estimate Adequate (ADEQUATE) Sodium Level 134 mmol/L (136-145) Potassium Level 3.8 mmol/L (3.5-5.1) Chloride Level 96 mmol/L (98-107) Carbon Dioxide Level 27 mmol/L (21-32) Anion Gap 11 (6-14) Blood Urea Nitrogen 12 mg/dL (8-26) Creatinine 0.7 mg/dL (0.7-1.3) Estimated GFR (Cockcroft-Gault) 121.4 BUN/Creatinine Ratio 17 (6-20) Glucose Level 98 mg/dL (70-99) Calcium Level 9.2 mg/dL (8.5-10.1) Total Bilirubin 0.2 mg/dL (0.2-1.0) Aspartate Amino Transf (AST/SGOT) 218 U/L (15-37) Alanine Aminotransferase (ALT/SGPT) 90 U/L (16-63) Alkaline Phosphatase 375 U/L (46-116) Troponin I Quantitative < 0.017 ng/mL (0.000-0.055) Total Protein 7.5 g/dL (6.4-8.2) Albumin 2.8 g/dL (3.4-5.0) Albumin/Globulin Ratio 0.6 (1.0-1.7) Assessment/Plan Assessment/Plan Impression: 1. Generalized lymphadenopathy 2. Neutrophilic leukocytosis 3. Fever 4. Rash 5. Elevated LFTs 6. Recent enterococcal infection of right TKA Plan: I have reviewed his CT scans personally. Compared to a CT Chest here from 2013, there is no significant change in the size of his axillary nodes. Lymphoma certainly is a possibility, but the presence of similarly sized nodes close to three years ago argues strongly against this being an acute aggressive lymphoproliferative process. Rash curious for drug reaction and wondering if fever and LFT changes may be part of this as well. Infection remains a concern as well. His nodes are likely reactive in setting of above. At this point, I would not recommend a biopsy unless there proves to be no clear explanation after investigation of other causes. If biopsy pursued, recommend that it be at least a core (not an FNA) and be on lymphoma protocol with flow cytometry. Check HIV and hepatitis serologies. Dr Walls will take over tomorrow. I have asked him to follow intermittently moving forward. Please contact him directly if issues arise during hospitalization. JOVANA BRISCOE MD Mar 04, 2017 11:27
[2017-03-04] MEDS ORDERED: MICAFUNGIN 100 MG in IV DEXTROSE 5% 100 ML IV SCH (12:00)
[2017-03-04] MEDS ORDERED: VANCOMYCIN 2 GM in IV NORMAL SALINE 500ML BAG 500 ML IV ONE (12:00)
[2017-03-04] MEDS: METHADONE 10 MG TABLET. PO SCH ×3 (12:26→20:49)
[2017-03-04] MEDS: VANCOMYCIN PER PHARMACY MC PRN (13:21)
[2017-03-04] MEDS ORDERED: diphenhydrAMINE 50 MG/ML VIAL IVP PRN (14:15)
--- NOTE | 2017-03-04 14:21 | PDOC1 ---
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 He was discharged on IV antibiotics ( Zosyn) late January and had been improving until ~6-7 days ago when noted to have fevers and progressive multifocal body aches. Knee seems to be stable without new findings, diagnosed recently with diabetes and had gradually lost weight Denies h/o IV drug use or known HIV or hepatitis Past Medical History Cardiovascular: No pertinent hx Pulmonary: No pertinent hx CENTRAL NERVOUS SYSTEM: Carpal Tunnel Syndrome, Periperal neuropathy, Other GI: GERD, Other (fatty liver, cholelithiasis) Heme/Onc: No pertinent hx Hepatobiliary: Cholelithiasis, Other (fatty liver) Psych: Anxiety, Depression Rheumatologic: No pertinent hx, Other (OA) Infectious disease: Other (infection TKA site) Renal/: Other (partial nephrectomy, chronic pyelonephritis) Endocrine: Diabetes, Hypothyroidism Dermatology: Rash Past Surgical History Past Surgical History: Cystoscopy, Total knee replacement (splenectomy, partial nephrectomy), Other Family History Family History: Coronary Artery Disease, Heart Disease Social History Smoke: Quit (october 2016) ALCOHOL: rare Drugs: Marijuana Current Problem List Problem List Problems Medical Problems: (1) Chest pain Status: Acute Current Medications Current Medications Current Medications Medications (Trade) Dose Ordered Sig/[place] Start Time Stop Time Status Last Admin Dose Admin Alprazolam (Xanax) 0.5 mg PRN Q6HRS PRN 03/03/17 23:30 03/04/17 06:54 0.5 MG Aspirin (Claudy Aspirin) 325 mg DAILY 03/04/17 09:00 03/04/17 08:05 325 MG Diphenhydramine HCl (Benadryl) 25 mg PRN Q6HRS PRN 03/04/17 14:15 UNV Ferrous Sulfate (Feosol) 325 mg DAILY 03/04/17 09:00 03/04/17 08:05 325 MG Info (Do NOT chart on this entry -- for MONITORING) 1 each PRN DAILY PRN 03/03/17 16:15 03/05/17 16:14 Iohexol (Omnipaque 350 Mg/ml) 90 ml 1X ONCE 03/03/17 16:00 03/03/17 16:03 DC 03/03/17 16:30 90 ML Metformin HCl (Glucophage) 500 mg BIDWMEALS 03/06/17 08:00 Methadone HCl (Dolophine) 20 mg 1X ONCE 03/04/17 08:30 03/04/17 08:31 DC 03/04/17 08:25 20 MG Micafungin Sodium 100 mg/Dextrose 100 ml @ 100 mls/hr Q24H 03/04/17 12:00 03/04/17 12:37 100 MLS/HR Morphine Sulfate 4 mg PRN Q2HR PRN 03/03/17 18:00 03/04/17 17:59 03/04/17 05:55 4 MG Non-Formulary Medication 4.5 gm Q8HRS 03/03/17 22:00 UNV Ondansetron HCl (Zofran) 4 mg PRN Q8HRS PRN 03/03/17 18:00 03/04/17 17:59 03/04/17 08:05 4 MG Oxycodone HCl (Roxicodone) 40 mg PRN Q4HRS PRN 03/03/17 22:30 03/04/17 08:06 40 MG Pioglitazone HCl (Actos) 30 mg DAILY 03/04/17 09:00 03/04/17 08:05 30 MG Piperacillin Sod/ Tazobactam Sod 4.5 gm/Sodium Chloride 100 ml @ 200 mls/hr Q8HRS 03/03/17 23:00 03/04/17 05:50 200 MLS/HR Sodium Chloride 1,000 ml @ 1,000 mls/hr 1X ONCE 03/03/17 16:30 03/03/17 17:29 DC 03/03/17 16:55 1,000 MLS/HR Vancomycin HCl 1 each 1X ONCE 03/05/17 11:30 03/05/17 11:31 Vancomycin HCl (Vanco Per Pharmacy) 1 each PRN DAILY PRN 03/04/17 11:15 03/04/17 13:21 1 EACH Vancomycin HCl 1.75 gm/Sodium Chloride 500 ml @ 250 mls/hr Q8H 03/04/17 20:00 Vancomycin HCl 2 gm/Sodium Chloride 500 ml @ 250 mls/hr 1X ONCE 03/04/17 12:00 03/04/17 13:59 DC 03/04/17 12:28 250 MLS/HR Allergies Allergies Allergies Coded Allergies Type Severity Reaction Last Updated Verified ibuprofen Allergy Intermediate urinary retention,swelling 02/07/17 Yes ROS Review of System CONSTITUTIONAL: +fatigue, fevers as per HPI EYES: No recent changes SKIN: rash noted after admit to hospital CARDIOVASCULAR: + chest pain, no syncope, no palpitations, or edema RESPIRATORY: No SOB or cough GASTROINTESTINAL: No nausea, vomiting or abdominal pain NEUROLOGICAL: No headaches or weakness ENDOCRINE: No cold or heat intolerance GENITOURINARY: No urgency or frequency of urination MUSCULOSKELETAL: has arthralgia and myalgia PSYCHIATRIC: + anxiety and depression Physical Exam Physical Exam GEN.: slightly sedated now, arousable and follow command, cooperative now HEENT: Head is normocephalic, atraumatic NECK: Supple. LUNGS: Clear to auscultation. HEART: RRR, Peripheral pulses intact ABDOMEN: Soft, nontender. Positive bowel sounds. EXTREMITIES: Without any cyanosis. NEUROLOGIC: Normal speech, normal tone PSYCHIATRIC: slightly sedated SKIN: maculopopular fine rash noted on LE today Vitals Vitals Vital Signs Date Time Temp Pulse Resp B/P (MAP) Pulse Ox O2 Delivery O2 Flow Rate FiO2 03/04/17 10:40 99.0 91 19 132/73 (92) 95 Room Air 99.0 Labs Labs Laboratory Tests Test 03/03/17 15:11 03/03/17 15:40 03/03/17 20:00 03/03/17 23:45 White Blood Count 10.6 x10^3/uL (4.0-11.0) Red Blood Count 4.52 x10^6/uL (4.30-5.70) Hemoglobin 13.4 g/dL (13.0-17.5) Hematocrit 40.8 % (39.0-53.0) Mean Corpuscular Volume 90 fL (79-100) Mean Corpuscular Hemoglobin 30 pg (25-35) Mean Corpuscular Hemoglobin Concent 33 g/dL (31-37) Red Cell Distribution Width 15.2 % (11.5-14.5) Platelet Count 259 x10^3/uL (140-400) Neutrophils (%) (Auto) 73 % (31-73) Lymphocytes (%) (Auto) 25 % (24-48) Monocytes (%) (Auto) 1 % (0-9) Eosinophils (%) (Auto) 1 % (0-3) Basophils (%) (Auto) 1 % (0-3) Neutrophils # (Auto) 7.7 x10^3uL (1.8-7.7) Lymphocytes # (Auto) 2.6 x10^3/uL (1.0-4.8) Monocytes # (Auto) 0.1 x10^3/uL (0.0-1.1) Eosinophils # (Auto) 0.2 x10^3/uL (0.0-0.7) Basophils # (Auto) 0.1 x10^3/uL (0.0-0.2) Segmented Neutrophils % 34 % (35-66) Band Neutrophils % 44 % (0-9) Lymphocytes % 18 % (24-48) Monocytes % 2 % (0-10) Eosinophils % 2 % (0-5) Nucleated Red Blood Cells 9 Toxic Vacuolation Present Dohle Bodies Present Platelet Estimate Adequate (ADEQUATE) Large Platelets Present Poikilocytosis Slight Bertrand-Inman Bodies Present Prothrombin Time 15.9 SEC (11.7-14.0) Prothromb Time International Ratio 1.4 (0.8-1.1) Sodium Level 133 mmol/L (136-145) Potassium Level 3.2 mmol/L (3.5-5.1) Chloride Level 92 mmol/L (98-107) Carbon Dioxide Level 29 mmol/L (21-32) Anion Gap 12 (6-14) Blood Urea Nitrogen 16 mg/dL (8-26) Creatinine 1.0 mg/dL (0.7-1.3) Estimated GFR (Cockcroft-Gault) 80.4 Glucose Level 193 mg/dL (70-99) Lactic Acid Level 3.2 mmol/L (0.4-2.0) 1.2 mmol/L (0.4-2.0) Calcium Level 9.9 mg/dL (8.5-10.1) Magnesium Level 1.8 mg/dL (1.8-2.4) Total Bilirubin 0.3 mg/dL (0.2-1.0) Direct Bilirubin 0.2 mg/dL (0.0-0.2) Aspartate Amino Transf (AST/SGOT) 270 U/L (15-37) Alanine Aminotransferase (ALT/SGPT) 116 U/L (16-63) Alkaline Phosphatase 383 U/L (46-116) Creatine Kinase 562 U/L (39-308) Creatine Kinase MB (Mass) 0.6 ng/mL (0.0-3.6) Creatine Kinase MB Relative Index 0.1 % (0-4) Troponin I Quantitative < 0.017 ng/mL (0.000-0.055) < 0.017 ng/mL (0.000-0.055) BR-Gej-I-Type Natriuretic Peptide 304 pg/mL (0-124) Total Protein 8.6 g/dL (6.4-8.2) Albumin 3.5 g/dL (3.4-5.0) Lipase 76 U/L (73-393) Thyroid Stimulating Hormone (TSH) 1.215 uIU/mL (0.358-3.74) Urine Collection Type Unknown Urine Color Yellow Urine Clarity Clear Urine pH 6.0 Urine Specific [place] >=1.030 Urine Protein >=300 mg/dL (NEG-TRACE) Urine Glucose (UA) >=1000 mg/dL (NEG) Urine Ketones (Stick) 15 mg/dL (NEG) Urine Blood Small (NEG) Urine Nitrite Negative (NEG) Urine Bilirubin Negative (NEG) Urine Urobilinogen Dipstick 0.2 mg/dL (0.2 mg/dL) Urine Leukocyte Esterase Negative (NEG) Urine RBC 1-2 /HPF (0-2) Urine WBC Occ /HPF (0-4) Urine Amorphous Sediment Present /HPF Urine Bacteria 0 /HPF (0-FEW) Urine Mucus Mod /LPF Urine Opiates Screen Pos (NEG) Urine Methadone Screen Pos (NEG) Urine Barbiturates Neg (NEG) Urine Phencyclidine Screen Neg (NEG) Urine Amphetamine/Methamphetamine Neg (NEG) Urine Benzodiazepines Screen Neg (NEG) Urine Cocaine Screen Neg (NEG) Urine Cannabinoids Screen Pos (NEG) Urine Ethyl Alcohol Neg (NEG) Test 03/04/17 06:25 White Blood Count 17.1 x10^3/uL (4.0-11.0) Red Blood Count 3.98 x10^6/uL (4.30-5.70) Hemoglobin 12.0 g/dL (13.0-17.5) Hematocrit 34.9 % (39.0-53.0) Mean Corpuscular Volume 88 fL (79-100) Mean Corpuscular Hemoglobin 30 pg (25-35) Mean Corpuscular Hemoglobin Concent 34 g/dL (31-37) Red Cell Distribution Width 14.8 % (11.5-14.5) Platelet Count 254 x10^3/uL (140-400) Neutrophils (%) (Auto) 86 % (31-73) Lymphocytes (%) (Auto) 11 % (24-48) Monocytes (%) (Auto) 2 % (0-9) Eosinophils (%) (Auto) 1 % (0-3) Basophils (%) (Auto) 1 % (0-3) Neutrophils # (Auto) 14.6 x10^3uL (1.8-7.7) Lymphocytes # (Auto) 1.9 x10^3/uL (1.0-4.8) Monocytes # (Auto) 0.3 x10^3/uL (0.0-1.1) Eosinophils # (Auto) 0.1 x10^3/uL (0.0-0.7) Basophils # (Auto) 0.2 x10^3/uL (0.0-0.2) Segmented Neutrophils % 51 % (35-66) Band Neutrophils % 33 % (0-9) Lymphocytes % 16 % (24-48) Nucleated Red Blood Cells 5 Platelet Estimate Adequate (ADEQUATE) Sodium Level 134 mmol/L (136-145) Potassium Level 3.8 mmol/L (3.5-5.1) Chloride Level 96 mmol/L (98-107) Carbon Dioxide Level 27 mmol/L (21-32) Anion Gap 11 (6-14) Blood Urea Nitrogen 12 mg/dL (8-26) Creatinine 0.7 mg/dL (0.7-1.3) Estimated GFR (Cockcroft-Gault) 121.4 BUN/Creatinine Ratio 17 (6-20) Glucose Level 98 mg/dL (70-99) Calcium Level 9.2 mg/dL (8.5-10.1) Total Bilirubin 0.2 mg/dL (0.2-1.0) Aspartate Amino Transf (AST/SGOT) 218 U/L (15-37) Alanine Aminotransferase (ALT/SGPT) 90 U/L (16-63) Alkaline Phosphatase 375 U/L (46-116) Troponin I Quantitative < 0.017 ng/mL (0.000-0.055) Total Protein 7.5 g/dL (6.4-8.2) Albumin 2.8 g/dL (3.4-5.0) Albumin/Globulin Ratio 0.6 (1.0-1.7) Laboratory Tests Test 03/03/17 15:11 03/03/17 15:40 03/03/17 20:00 03/03/17 23:45 White Blood Count 10.6 x10^3/uL (4.0-11.0) Red Blood Count 4.52 x10^6/uL (4.30-5.70) Hemoglobin 13.4 g/dL (13.0-17.5) Hematocrit 40.8 % (39.0-53.0) Mean Corpuscular Volume 90 fL (79-100) Mean Corpuscular Hemoglobin 30 pg (25-35) Mean Corpuscular Hemoglobin Concent 33 g/dL (31-37) Red Cell Distribution Width 15.2 % (11.5-14.5) Platelet Count 259 x10^3/uL (140-400) Neutrophils (%) (Auto) 73 % (31-73) Lymphocytes (%) (Auto) 25 % (24-48) Monocytes (%) (Auto) 1 % (0-9) Eosinophils (%) (Auto) 1 % (0-3) Basophils (%) (Auto) 1 % (0-3) Neutrophils # (Auto) 7.7 x10^3uL (1.8-7.7) Lymphocytes # (Auto) 2.6 x10^3/uL (1.0-4.8) Monocytes # (Auto) 0.1 x10^3/uL (0.0-1.1) Eosinophils # (Auto) 0.2 x10^3/uL (0.0-0.7) Basophils # (Auto) 0.1 x10^3/uL (0.0-0.2) Segmented Neutrophils % 34 % (35-66) Band Neutrophils % 44 % (0-9) Lymphocytes % 18 % (24-48) Monocytes % 2 % (0-10) Eosinophils % 2 % (0-5) Nucleated Red Blood Cells 9 Toxic Vacuolation Present Dohle Bodies Present Platelet Estimate Adequate (ADEQUATE) Large Platelets Present Poikilocytosis Slight Bertrand-Inman Bodies Present Prothrombin Time 15.9 SEC (11.7-14.0) Prothromb Time International Ratio 1.4 (0.8-1.1) Sodium Level 133 mmol/L (136-145) Potassium Level 3.2 mmol/L (3.5-5.1) Chloride Level 92 mmol/L (98-107) Carbon Dioxide Level 29 mmol/L (21-32) Anion Gap 12 (6-14) Blood Urea Nitrogen 16 mg/dL (8-26) Creatinine 1.0 mg/dL (0.7-1.3) Estimated GFR (Cockcroft-Gault) 80.4 Glucose Level 193 mg/dL (70-99) Lactic Acid Level 3.2 mmol/L (0.4-2.0) 1.2 mmol/L (0.4-2.0) Calcium Level 9.9 mg/dL (8.5-10.1) Magnesium Level 1.8 mg/dL (1.8-2.4) Total Bilirubin 0.3 mg/dL (0.2-1.0) Direct Bilirubin 0.2 mg/dL (0.0-0.2) Aspartate Amino Transf (AST/SGOT) 270 U/L (15-37) Alanine Aminotransferase (ALT/SGPT) 116 U/L (16-63) Alkaline Phosphatase 383 U/L (46-116) Creatine Kinase 562 U/L (39-308) Creatine Kinase MB (Mass) 0.6 ng/mL (0.0-3.6) Creatine Kinase MB Relative Index 0.1 % (0-4) Troponin I Quantitative < 0.017 ng/mL (0.000-0.055) < 0.017 ng/mL (0.000-0.055) NS-Vzv-Y-Type Natriuretic Peptide 304 pg/mL (0-124) Total Protein 8.6 g/dL (6.4-8.2) Albumin 3.5 g/dL (3.4-5.0) Lipase 76 U/L (73-393) Thyroid Stimulating Hormone (TSH) 1.215 uIU/mL (0.358-3.74) Urine Collection Type Unknown Urine Color Yellow Urine Clarity Clear Urine pH 6.0 Urine Specific [place] >=1.030 Urine Protein >=300 mg/dL (NEG-TRACE) Urine Glucose (UA) >=1000 mg/dL (NEG) Urine Ketones (Stick) 15 mg/dL (NEG) Urine Blood Small (NEG) Urine Nitrite Negative (NEG) Urine Bilirubin Negative (NEG) Urine Urobilinogen Dipstick 0.2 mg/dL (0.2 mg/dL) Urine Leukocyte Esterase Negative (NEG) Urine RBC 1-2 /HPF (0-2) Urine WBC Occ /HPF (0-4) Urine Amorphous Sediment Present /HPF Urine Bacteria 0 /HPF (0-FEW) Urine Mucus Mod /LPF Urine Opiates Screen Pos (NEG) Urine Methadone Screen Pos (NEG) Urine Barbiturates Neg (NEG) Urine Phencyclidine Screen Neg (NEG) Urine Amphetamine/Methamphetamine Neg (NEG) Urine Benzodiazepines Screen Neg (NEG) Urine Cocaine Screen Neg (NEG) Urine Cannabinoids Screen Pos (NEG) Urine Ethyl Alcohol Neg (NEG) Test 03/04/17 06:25 White Blood Count 17.1 x10^3/uL (4.0-11.0) Red Blood Count 3.98 x10^6/uL (4.30-5.70) Hemoglobin 12.0 g/dL (13.0-17.5) Hematocrit 34.9 % (39.0-53.0) Mean Corpuscular Volume 88 fL (79-100) Mean Corpuscular Hemoglobin 30 pg (25-35) Mean Corpuscular Hemoglobin Concent 34 g/dL (31-37) Red Cell Distribution Width 14.8 % (11.5-14.5) Platelet Count 254 x10^3/uL (140-400) Neutrophils (%) (Auto) 86 % (31-73) Lymphocytes (%) (Auto) 11 % (24-48) Monocytes (%) (Auto) 2 % (0-9) Eosinophils (%) (Auto) 1 % (0-3) Basophils (%) (Auto) 1 % (0-3) Neutrophils # (Auto) 14.6 x10^3uL (1.8-7.7) Lymphocytes # (Auto) 1.9 x10^3/uL (1.0-4.8) Monocytes # (Auto) 0.3 x10^3/uL (0.0-1.1) Eosinophils # (Auto) 0.1 x10^3/uL (0.0-0.7) Basophils # (Auto) 0.2 x10^3/uL (0.0-0.2) Segmented Neutrophils % 51 % (35-66) Band Neutrophils % 33 % (0-9) Lymphocytes % 16 % (24-48) Nucleated Red Blood Cells 5 Platelet Estimate Adequate (ADEQUATE) Sodium Level 134 mmol/L (136-145) Potassium Level 3.8 mmol/L (3.5-5.1) Chloride Level 96 mmol/L (98-107) Carbon Dioxide Level 27 mmol/L (21-32) Anion Gap 11 (6-14) Blood Urea Nitrogen 12 mg/dL (8-26) Creatinine 0.7 mg/dL (0.7-1.3) Estimated GFR (Cockcroft-Gault) 121.4 BUN/Creatinine Ratio 17 (6-20) Glucose Level 98 mg/dL (70-99) Calcium Level 9.2 mg/dL (8.5-10.1) Total Bilirubin 0.2 mg/dL (0.2-1.0) Aspartate Amino Transf (AST/SGOT) 218 U/L (15-37) Alanine Aminotransferase (ALT/SGPT) 90 U/L (16-63) Alkaline Phosphatase 375 U/L (46-116) Troponin I Quantitative < 0.017 ng/mL (0.000-0.055) Total Protein 7.5 g/dL (6.4-8.2) Albumin 2.8 g/dL (3.4-5.0) Albumin/Globulin Ratio 0.6 (1.0-1.7) VTE Prophylaxis Ordered VTE Prophylaxis Devices: No VTE Pharmacological Prophylaxi: Yes Assessment/Plan Assessment/Plan 1- leukocytosis and hx of infection after TKA as above 2. fever/sepsis/ lactic acidosis 3. elevated liver enzymes and cholelithiasis 4. rash noted today ? ABX or current illness 5. lymphadenopathy on CT ? lymphoma , oncology consult , ID consult 6. DM II 7. hx splenectomy agree with broad spectrum ABx, check hepatitis and HIV, ID and oncology consult , monitor SHAWNA COE MD Mar 04, 2017 14:21
[2017-03-04 14:27] VITALS: BP 119/74
[2017-03-04] MEDS ORDERED: DEXTROSE 50% 25 GM / 50ML DISP.SYRIN. IV PRN (14:30)
[2017-03-04] MEDS: INSULIN ASPART 300 UNITS/3 ML INSULN.PEN SQ SCH (17:00)
[2017-03-04 19:28] VITALS: BP 151/76
[2017-03-04] MEDS: VANCOMYCIN 1.75 GM in IV NORMAL SALINE 500ML BAG 500 ML IV SCH (20:49)
[2017-03-04] MEDS: ACETAMINOPHEN 500 MG TABLET PO PRN (20:55)
[2017-03-04 22:24] VITALS: BP 126/87
[2017-03-05 02:30] VITALS: BP 144/85
[2017-03-05] MEDS: PIPERACILLIN/TAZOBACTAM 4.5 GM in IV NORMAL SALINE 100ML 100 ML IV SCH ×3 (05:29→22:00)
[2017-03-05] MEDS: VANCOMYCIN 1.75 GM in IV NORMAL SALINE 500ML BAG 500 ML IV SCH ×3 (05:29→20:33)
[2017-03-05] MEDS: oxyCODONE IR 5 MG TABLET PO PRN ×2 (05:32→13:16)
[2017-03-05 07:00] VITALS: BP 151/85
[2017-03-05 07:00] LABS: HEMATOCRIT 34.3 % (39.0-53.0); HEMOGLOBIN 11.3 g/dL (13.0-17.5); RED BLOOD COUNT 3.86 x10^6/uL (4.30-5.70); RED CELL DISTRIBUTION WIDTH 14.7 % (11.5-14.5); WHITE BLOOD COUNT 22.5 x10^3/uL (4.0-11.0)
[2017-03-05 07:27] LABS: ALBUMIN 2.5 g/dL (3.4-5.0); ALBUMIN/GLOBULIN RATIO 0.5 (1.0-1.7); CALCIUM 8.5 mg/dL (8.5-10.1); CREATININE 0.9 mg/dL (0.7-1.3); GFR 90.8; POTASSIUM 3.9 mmol/L (3.5-5.1); TOTAL BILIRUBIN 0.2 mg/dL (0.2-1.0); TOTAL PROTEIN 7.1 g/dL (6.4-8.2)
[2017-03-05] MEDS: INSULIN ASPART 300 UNITS/3 ML INSULN.PEN SQ SCH ×3 (08:00→17:00)
--- NOTE | 2017-03-05 08:22 | PDOC ---
GENERAL General: vss with tmax 99.7 last 24 hrs. wbc increased to 22K. alk phos and lft's increasing. less alert than his normal but may be related to meds. no definite gallbladder tenderness but suspect this as source of fever and leukocytosis with right tkr site looking good. will get HIDA scan and surgical opinion and continue iv antibiotics. Problems: VITAL SIGNS Vital Signs: Vital Signs Date Time Temp Pulse Resp B/P (MAP) Pulse Ox O2 Delivery O2 Flow Rate FiO2 03/05/17 07:00 99.7 73 20 151/85 (107) 100 99.7 03/05/17 05:32 Nasal Cannula 2.0 I & O I & O Intake and Output 03/05/17 07:00 Intake Total 1650 ml Output Total 1850 ml Balance -200 ml Intake Oral 500 ml IV Total 700 ml Blood Product IV Normal Saline Flush 450 ml Output Urine Total 1850 ml # Voids 1 ALLERGIES Allergies: Allergies Coded Allergies Type Severity Reaction Last Updated Verified ibuprofen Allergy Intermediate urinary retention,swelling 02/07/17 Yes MEDS Medications: Current Medications Medications (Trade) Dose Ordered Sig/[place] Start Time Stop Time Status Last Admin Dose Admin Acetaminophen (Tylenol) 500 mg PRN Q4HRS PRN 03/04/17 15:45 03/04/17 20:55 500 MG Alprazolam (Xanax) 0.5 mg PRN Q6HRS PRN 03/03/17 23:30 03/04/17 20:55 0.5 MG Aspirin (Claudy Aspirin) 325 mg DAILY 03/04/17 09:00 03/04/17 08:05 325 MG Dextrose (Dextrose 50%-Water Syringe) 12.5 gm PRN Q15MIN PRN 03/04/17 14:30 Diphenhydramine HCl (Benadryl) 25 mg PRN Q6HRS PRN 03/04/17 14:15 Ferrous Sulfate (Feosol) 325 mg DAILY 03/04/17 09:00 03/04/17 08:05 325 MG Info (Do NOT chart on this entry -- for MONITORING) 1 each PRN DAILY PRN 03/03/17 16:15 03/05/17 16:14 Insulin Aspart (NovoLOG) 0-5 UNITS TIDWMEALS 03/04/17 17:00 Iohexol (Omnipaque 350 Mg/ml) 90 ml 1X ONCE 03/03/17 16:00 03/03/17 16:03 DC 03/03/17 16:30 90 ML Metformin HCl (Glucophage) 500 mg BIDWMEALS 03/06/17 08:00 Methadone HCl (Dolophine) 20 mg 1X ONCE 03/04/17 08:30 03/04/17 08:31 DC 03/04/17 08:25 20 MG Micafungin Sodium 100 mg/Dextrose 100 ml @ 100 mls/hr Q24H 03/04/17 12:00 03/04/17 12:37 100 MLS/HR Morphine Sulfate 4 mg PRN Q2HR PRN 03/03/17 18:00 03/04/17 17:59 DC 03/04/17 05:55 4 MG Non-Formulary Medication 4.5 gm Q8HRS 03/03/17 22:00 UNV Ondansetron HCl (Zofran) 4 mg PRN Q8HRS PRN 03/03/17 18:00 03/04/17 17:59 DC 03/04/17 08:05 4 MG Oxycodone HCl (Roxicodone) 40 mg PRN Q4HRS PRN 03/03/17 22:30 03/05/17 05:32 40 MG Pioglitazone HCl (Actos) 30 mg DAILY 03/04/17 09:00 03/04/17 08:05 30 MG Piperacillin Sod/ Tazobactam Sod 4.5 gm/Sodium Chloride 100 ml @ 200 mls/hr Q8HRS 03/03/17 23:00 03/05/17 05:29 200 MLS/HR Sodium Chloride 1,000 ml @ 1,000 mls/hr 1X ONCE 03/03/17 16:30 03/03/17 17:29 DC 03/03/17 16:55 1,000 MLS/HR Vancomycin HCl 1 each 1X ONCE 03/05/17 11:30 03/05/17 11:31 Vancomycin HCl (Vanco Per Pharmacy) 1 each PRN DAILY PRN 03/04/17 11:15 03/04/17 13:21 1 EACH Vancomycin HCl 1.75 gm/Sodium Chloride 500 ml @ 250 mls/hr Q8H 03/04/17 20:00 03/05/17 05:29 250 MLS/HR Vancomycin HCl 2 gm/Sodium Chloride 500 ml @ 250 mls/hr 1X ONCE 03/04/17 12:00 03/04/17 13:59 DC 03/04/17 12:28 250 MLS/HR LAB Lab: Laboratory Tests Test 03/04/17 16:40 03/04/17 17:50 03/04/17 20:39 03/05/17 05:50 Glucose (Fingerstick) 108 mg/dL (70-99) 134 mg/dL (70-99) Lactic Acid Level 1.4 mmol/L (0.4-2.0) White Blood Count 22.5 x10^3/uL (4.0-11.0) Red Blood Count 3.86 x10^6/uL (4.30-5.70) Hemoglobin 11.3 g/dL (13.0-17.5) Hematocrit 34.3 % (39.0-53.0) Mean Corpuscular Volume 89 fL (79-100) Mean Corpuscular Hemoglobin 29 pg (25-35) Mean Corpuscular Hemoglobin Concent 33 g/dL (31-37) Red Cell Distribution Width 14.7 % (11.5-14.5) Platelet Count 256 x10^3/uL (140-400) Erythrocyte Sedimentation Rate 48 (0-15) Sodium Level 131 mmol/L (136-145) Potassium Level 3.9 mmol/L (3.5-5.1) Chloride Level 92 mmol/L (98-107) Carbon Dioxide Level 30 mmol/L (21-32) Anion Gap 9 (6-14) Blood Urea Nitrogen 13 mg/dL (8-26) Creatinine 0.9 mg/dL (0.7-1.3) Estimated GFR (Cockcroft-Gault) 90.8 BUN/Creatinine Ratio 14 (6-20) Glucose Level 116 mg/dL (70-99) Calcium Level 8.5 mg/dL (8.5-10.1) Total Bilirubin 0.2 mg/dL (0.2-1.0) Aspartate Amino Transf (AST/SGOT) 217 U/L (15-37) Alanine Aminotransferase (ALT/SGPT) 82 U/L (16-63) Alkaline Phosphatase 412 U/L (46-116) Total Protein 7.1 g/dL (6.4-8.2) Albumin 2.5 g/dL (3.4-5.0) Albumin/Globulin Ratio 0.5 (1.0-1.7) Test 03/05/17 07:59 Glucose (Fingerstick) 112 mg/dL (70-99) SEAN GUERRA MD Mar 05, 2017 08:22
[2017-03-05] MEDS: FERROUS SULFATE 325 MG TABLET. PO SCH ×2 (09:00→13:06)
[2017-03-05] MEDS: METHADONE 10 MG TABLET. PO SCH ×5 (09:00→21:00)
[2017-03-05] MEDS: ASPIRIN 325 MG TABLET PO SCH ×2 (09:00→13:08)
[2017-03-05] MEDS: Canagliflozin (Invokana) 300 MG TABLET PO SCH ×2 (09:00→13:12)
[2017-03-05] MEDS: PIOGLITAZONE 15 MG TABLET. PO SCH ×2 (09:00→13:08)
--- NOTE | 2017-03-05 09:00 | PDOC ---
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, moves all ext SKIN: No rash IV: ok Labs Lab Laboratory Tests Test 03/04/17 16:40 03/04/17 17:50 03/04/17 20:39 03/05/17 05:50 Glucose (Fingerstick) 108 mg/dL (70-99) 134 mg/dL (70-99) Lactic Acid Level 1.4 mmol/L (0.4-2.0) White Blood Count 22.5 x10^3/uL (4.0-11.0) Red Blood Count 3.86 x10^6/uL (4.30-5.70) Hemoglobin 11.3 g/dL (13.0-17.5) Hematocrit 34.3 % (39.0-53.0) Mean Corpuscular Volume 89 fL (79-100) Mean Corpuscular Hemoglobin 29 pg (25-35) Mean Corpuscular Hemoglobin Concent 33 g/dL (31-37) Red Cell Distribution Width 14.7 % (11.5-14.5) Platelet Count 256 x10^3/uL (140-400) Erythrocyte Sedimentation Rate 48 (0-15) Sodium Level 131 mmol/L (136-145) Potassium Level 3.9 mmol/L (3.5-5.1) Chloride Level 92 mmol/L (98-107) Carbon Dioxide Level 30 mmol/L (21-32) Anion Gap 9 (6-14) Blood Urea Nitrogen 13 mg/dL (8-26) Creatinine 0.9 mg/dL (0.7-1.3) Estimated GFR (Cockcroft-Gault) 90.8 BUN/Creatinine Ratio 14 (6-20) Glucose Level 116 mg/dL (70-99) Calcium Level 8.5 mg/dL (8.5-10.1) Total Bilirubin 0.2 mg/dL (0.2-1.0) Aspartate Amino Transf (AST/SGOT) 217 U/L (15-37) Alanine Aminotransferase (ALT/SGPT) 82 U/L (16-63) Alkaline Phosphatase 412 U/L (46-116) Total Protein 7.1 g/dL (6.4-8.2) Albumin 2.5 g/dL (3.4-5.0) Albumin/Globulin Ratio 0.5 (1.0-1.7) Test 03/05/17 07:59 Glucose (Fingerstick) 112 mg/dL (70-99) Micro culture neg Objective Assessment Sepsis, ? 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 Intra-op cultures no growth, had been on abx prior to surgery h/o Enterococcus-PNC sensitive from 02/01, swab cx of wound Diabetes Plan Plan of Care cont antibiotics will start scaling down HELEN RODARTE MD Mar 05, 2017 09:00
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
[2017-03-05] MEDS: VANCOMYCIN PER PHARMACY MC PRN ×2 (10:03→16:40)
[2017-03-05] MEDS ORDERED: SINCALIDE 2.4 MCG in IV NORMAL SALINE 50ML 30 ML IV ONE (11:15)
--- NOTE | 2017-03-05 12:23 | PDOC ---
PROGRESS NOTES Subjective Subjective c/c - f/u of Generalized lymphadenopathy Objective Objective Vital Signs Date Time Temp Pulse Resp B/P (MAP) Pulse Ox O2 Delivery O2 Flow Rate FiO2 03/05/17 11:00 Room Air 03/05/17 08:00 2.0 03/05/17 07:00 99.7 73 20 151/85 (107) 100 99.7 Intake and Output 03/05/17 07:00 Intake Total 1650 ml Output Total 1850 ml Balance -200 ml Intake Oral 500 ml IV Total 700 ml Blood Product IV Normal Saline Flush 450 ml Output Urine Total 1850 ml # Voids 1 Physical Exam Heart: Normal S1, Normal S2 Lungs: Clear to auscultation Assessment Assessment Problems Medical Problems: (1) Chest pain Status: Acute Assessment/Plan Impression: 1. Generalized lymphadenopathy 2. Neutrophilic leukocytosis 3. Fever 4. Rash 5. Elevated LFTs 6. Recent enterococcal infection of right TKA Plan: I have reviewed his CT scans. Compared to a CT Chest here from 05/2014, there is no significant change in the size of his axillary nodes. Lymphoma certainly is a possibility, I will consult surgery for biopsy at the time of cholecystectomy. Check HIV and hepatitis serologies. Comment Review of Relevant I have reviewed the following items tod (where applicable) has been applied. Labs Laboratory Tests Test 03/03/17 15:11 03/03/17 15:40 03/03/17 20:00 03/03/17 23:45 White Blood Count 10.6 x10^3/uL (4.0-11.0) Red Blood Count 4.52 x10^6/uL (4.30-5.70) Hemoglobin 13.4 g/dL (13.0-17.5) Hematocrit 40.8 % (39.0-53.0) Mean Corpuscular Volume 90 fL (79-100) Mean Corpuscular Hemoglobin 30 pg (25-35) Mean Corpuscular Hemoglobin Concent 33 g/dL (31-37) Red Cell Distribution Width 15.2 % (11.5-14.5) Platelet Count 259 x10^3/uL (140-400) Neutrophils (%) (Auto) 73 % (31-73) Lymphocytes (%) (Auto) 25 % (24-48) Monocytes (%) (Auto) 1 % (0-9) Eosinophils (%) (Auto) 1 % (0-3) Basophils (%) (Auto) 1 % (0-3) Neutrophils # (Auto) 7.7 x10^3uL (1.8-7.7) Lymphocytes # (Auto) 2.6 x10^3/uL (1.0-4.8) Monocytes # (Auto) 0.1 x10^3/uL (0.0-1.1) Eosinophils # (Auto) 0.2 x10^3/uL (0.0-0.7) Basophils # (Auto) 0.1 x10^3/uL (0.0-0.2) Segmented Neutrophils % 34 % (35-66) Band Neutrophils % 44 % (0-9) Lymphocytes % 18 % (24-48) Monocytes % 2 % (0-10) Eosinophils % 2 % (0-5) Nucleated Red Blood Cells 9 Toxic Vacuolation Present [place] Bodies Present Platelet Estimate Adequate (ADEQUATE) Large Platelets Present Poikilocytosis Slight [place] Bodies Present Prothrombin Time 15.9 SEC (11.7-14.0) Prothromb Time International Ratio 1.4 (0.8-1.1) Sodium Level 133 mmol/L (136-145) Potassium Level 3.2 mmol/L (3.5-5.1) Chloride Level 92 mmol/L (98-107) Carbon Dioxide Level 29 mmol/L (21-32) Anion Gap 12 (6-14) Blood Urea Nitrogen 16 mg/dL (8-26) Creatinine 1.0 mg/dL (0.7-1.3) Estimated GFR (Cockcroft-Gault) 80.4 Glucose Level 193 mg/dL (70-99) Lactic Acid Level 3.2 mmol/L (0.4-2.0) 1.2 mmol/L (0.4-2.0) Calcium Level 9.9 mg/dL (8.5-10.1) Magnesium Level 1.8 mg/dL (1.8-2.4) Total Bilirubin 0.3 mg/dL (0.2-1.0) Direct Bilirubin 0.2 mg/dL (0.0-0.2) Aspartate Amino Transf (AST/SGOT) 270 U/L (15-37) Alanine Aminotransferase (ALT/SGPT) 116 U/L (16-63) Alkaline Phosphatase 383 U/L (46-116) Creatine Kinase 562 U/L (39-308) Creatine Kinase MB (Mass) 0.6 ng/mL (0.0-3.6) Creatine Kinase MB Relative Index 0.1 % (0-4) Troponin I Quantitative < 0.017 ng/mL (0.000-0.055) < 0.017 ng/mL (0.000-0.055) JS-[id number]-I-Type Natriuretic Peptide 304 pg/mL (0-124) Total Protein 8.6 g/dL (6.4-8.2) Albumin 3.5 g/dL (3.4-5.0) Lipase 76 U/L (73-393) Thyroid Stimulating Hormone (TSH) 1.215 uIU/mL (0.358-3.74) Urine Collection Type Unknown Urine Color Yellow Urine Clarity Clear Urine pH 6.0 Urine Specific [place] >=1.030 Urine Protein >=300 mg/dL (NEG-TRACE) Urine Glucose (UA) >=1000 mg/dL (NEG) Urine Ketones (Stick) 15 mg/dL (NEG) Urine Blood Small (NEG) Urine Nitrite Negative (NEG) Urine Bilirubin Negative (NEG) Urine Urobilinogen Dipstick 0.2 mg/dL (0.2 mg/dL) Urine Leukocyte Esterase Negative (NEG) Urine RBC 1-2 /HPF (0-2) Urine WBC Occ /HPF (0-4) Urine Amorphous Sediment Present /HPF Urine Bacteria 0 /HPF (0-FEW) Urine Mucus Mod /LPF Urine Opiates Screen Pos (NEG) Urine Methadone Screen Pos (NEG) Urine Barbiturates Neg (NEG) Urine Phencyclidine Screen Neg (NEG) Urine Amphetamine/Methamphetamine Neg (NEG) Urine Benzodiazepines Screen Neg (NEG) Urine Cocaine Screen Neg (NEG) Urine Cannabinoids Screen Pos (NEG) Urine Ethyl Alcohol Neg (NEG) Test 03/04/17 06:25 03/04/17 16:40 03/04/17 17:50 03/04/17 20:39 White Blood Count 17.1 x10^3/uL (4.0-11.0) Red Blood Count 3.98 x10^6/uL (4.30-5.70) Hemoglobin 12.0 g/dL (13.0-17.5) Hematocrit 34.9 % (39.0-53.0) Mean Corpuscular Volume 88 fL (79-100) Mean Corpuscular Hemoglobin 30 pg (25-35) Mean Corpuscular Hemoglobin Concent 34 g/dL (31-37) Red Cell Distribution Width 14.8 % (11.5-14.5) Platelet Count 254 x10^3/uL (140-400) Neutrophils (%) (Auto) 86 % (31-73) Lymphocytes (%) (Auto) 11 % (24-48) Monocytes (%) (Auto) 2 % (0-9) Eosinophils (%) (Auto) 1 % (0-3) Basophils (%) (Auto) 1 % (0-3) Neutrophils # (Auto) 14.6 x10^3uL (1.8-7.7) Lymphocytes # (Auto) 1.9 x10^3/uL (1.0-4.8) Monocytes # (Auto) 0.3 x10^3/uL (0.0-1.1) Eosinophils # (Auto) 0.1 x10^3/uL (0.0-0.7) Basophils # (Auto) 0.2 x10^3/uL (0.0-0.2) Segmented Neutrophils % 51 % (35-66) Band Neutrophils % 33 % (0-9) Lymphocytes % 16 % (24-48) Nucleated Red Blood Cells 5 Platelet Estimate Adequate (ADEQUATE) Sodium Level 134 mmol/L (136-145) Potassium Level 3.8 mmol/L (3.5-5.1) Chloride Level 96 mmol/L (98-107) Carbon Dioxide Level 27 mmol/L (21-32) Anion Gap 11 (6-14) Blood Urea Nitrogen 12 mg/dL (8-26) Creatinine 0.7 mg/dL (0.7-1.3) Estimated GFR (Cockcroft-Gault) 121.4 BUN/Creatinine Ratio 17 (6-20) Glucose Level 98 mg/dL (70-99) Calcium Level 9.2 mg/dL (8.5-10.1) Total Bilirubin 0.2 mg/dL (0.2-1.0) Aspartate Amino Transf (AST/SGOT) 218 U/L (15-37) Alanine Aminotransferase (ALT/SGPT) 90 U/L (16-63) Alkaline Phosphatase 375 U/L (46-116) Troponin I Quantitative < 0.017 ng/mL (0.000-0.055) Total Protein 7.5 g/dL (6.4-8.2) Albumin 2.8 g/dL (3.4-5.0) Albumin/Globulin Ratio 0.6 (1.0-1.7) Glucose (Fingerstick) 108 mg/dL (70-99) 134 mg/dL (70-99) Lactic Acid Level 1.4 mmol/L (0.4-2.0) Test 03/05/17 05:50 03/05/17 07:59 White Blood Count 22.5 x10^3/uL (4.0-11.0) Red Blood Count 3.86 x10^6/uL (4.30-5.70) Hemoglobin 11.3 g/dL (13.0-17.5) Hematocrit 34.3 % (39.0-53.0) Mean Corpuscular Volume 89 fL (79-100) Mean Corpuscular Hemoglobin 29 pg (25-35) Mean Corpuscular Hemoglobin Concent 33 g/dL (31-37) Red Cell Distribution Width 14.7 % (11.5-14.5) Platelet Count 256 x10^3/uL (140-400) Erythrocyte Sedimentation Rate 48 (0-15) Sodium Level 131 mmol/L (136-145) Potassium Level 3.9 mmol/L (3.5-5.1) Chloride Level 92 mmol/L (98-107) Carbon Dioxide Level 30 mmol/L (21-32) Anion Gap 9 (6-14) Blood Urea Nitrogen 13 mg/dL (8-26) Creatinine 0.9 mg/dL (0.7-1.3) Estimated GFR (Cockcroft-Gault) 90.8 BUN/Creatinine Ratio 14 (6-20) Glucose Level 116 mg/dL (70-99) Calcium Level 8.5 mg/dL (8.5-10.1) Total Bilirubin 0.2 mg/dL (0.2-1.0) Aspartate Amino Transf (AST/SGOT) 217 U/L (15-37) Alanine Aminotransferase (ALT/SGPT) 82 U/L (16-63) Alkaline Phosphatase 412 U/L (46-116) Total Protein 7.1 g/dL (6.4-8.2) Albumin 2.5 g/dL (3.4-5.0) Albumin/Globulin Ratio 0.5 (1.0-1.7) Glucose (Fingerstick) 112 mg/dL (70-99) Laboratory Tests Test 03/04/17 16:40 03/04/17 17:50 03/04/17 20:39 03/05/17 05:50 Glucose (Fingerstick) 108 mg/dL (70-99) 134 mg/dL (70-99) Lactic Acid Level 1.4 mmol/L (0.4-2.0) White Blood Count 22.5 x10^3/uL (4.0-11.0) Red Blood Count 3.86 x10^6/uL (4.30-5.70) Hemoglobin 11.3 g/dL (13.0-17.5) Hematocrit 34.3 % (39.0-53.0) Mean Corpuscular Volume 89 fL (79-100) Mean Corpuscular Hemoglobin 29 pg (25-35) Mean Corpuscular Hemoglobin Concent 33 g/dL (31-37) Red Cell Distribution Width 14.7 % (11.5-14.5) Platelet Count 256 x10^3/uL (140-400) Erythrocyte Sedimentation Rate 48 (0-15) Sodium Level 131 mmol/L (136-145) Potassium Level 3.9 mmol/L (3.5-5.1) Chloride Level 92 mmol/L (98-107) Carbon Dioxide Level 30 mmol/L (21-32) Anion Gap 9 (6-14) Blood Urea Nitrogen 13 mg/dL (8-26) Creatinine 0.9 mg/dL (0.7-1.3) Estimated GFR (Cockcroft-Gault) 90.8 BUN/Creatinine Ratio 14 (6-20) Glucose Level 116 mg/dL (70-99) Calcium Level 8.5 mg/dL (8.5-10.1) Total Bilirubin 0.2 mg/dL (0.2-1.0) Aspartate Amino Transf (AST/SGOT) 217 U/L (15-37) Alanine Aminotransferase (ALT/SGPT) 82 U/L (16-63) Alkaline Phosphatase 412 U/L (46-116) Total Protein 7.1 g/dL (6.4-8.2) Albumin 2.5 g/dL (3.4-5.0) Albumin/Globulin Ratio 0.5 (1.0-1.7) Test 03/05/17 07:59 Glucose (Fingerstick) 112 mg/dL (70-99) Microbiology 03/03/17 Blood Culture - Preliminary, Resulted NO GROWTH AFTER 1 DAY Medications Current Medications Morphine Sulfate 4 mg PRN Q15MIN PRN IV/SQ PAIN GREATER THAN 3/10 Last administered on 03/03/17 17:00; Start 03/03/17 at 15:00; Stop 03/04/17 at 14:59 ; Status DC Ondansetron HCl (Zofran) 4 mg 1X ONCE IV Last administered on 03/03/17 15:20 ; Start 03/03/17 at 15:00; Stop 03/03/17 at 15:01; Status DC Sodium Chloride 1,000 ml @ 1,000 mls/hr 1X ONCE IV Last administered on 15:20; Start 03/03/17 at 15:30; Stop 03/03/17 at 16:29; Status DC Iohexol (Omnipaque 350 Mg/ml) 90 ml 1X ONCE IV Last administered on 03/03/17 16:30; Start 03/03/17 at 16:00; Stop 03/03/17 at 16:03; Status DC Info (Do NOT chart on this entry -- for MONITORING) 1 each PRN DAILY PRN MC SEE COMMENTS; Start 03/03/17 at 16:15; Stop 03/05/17 at 16:14 Sodium Chloride 1,000 ml @ 1,000 mls/hr 1X ONCE IV Last administered on 16:55; Start 03/03/17 at 16:30; Stop 03/03/17 at 17:29; Status DC Ondansetron HCl (Zofran) 4 mg PRN Q8HRS PRN IV NAUSEA/VOMITING Last administered on 03/04/17 08:05; Start 03/03/17 at 18:00; Stop 03/04/17 at 17:59 ; Status DC Morphine Sulfate 4 mg PRN Q2HR PRN IV PAIN Last administered on 03/04/17 05:55 ; Start 03/03/17 at 18:00; Stop 03/04/17 at 17:59; Status DC Aspirin (Claudy Aspirin) 325 mg DAILY PO Last administered on 03/04/17 08:05; Start 03/04/17 at 09:00 Ferrous Sulfate (Feosol) 325 mg DAILY PO Last administered on 03/04/17 08:05; Start 03/04/17 at 09:00 Metformin HCl (Glucophage) 500 mg BIDWMEALS PO ; Start 03/06/17 at 08:00 Methadone HCl (Dolophine) 20 mg QID PO Last administered on 03/04/17 20:49; Start 03/04/17 at 09:00 Pioglitazone HCl (Actos) 30 mg DAILY PO Last administered on 03/04/17 08:05; Start 03/04/17 at 09:00 Non-Formulary Medication 300 mg DAILY PO ; Start 03/04/17 at 09:00 Oxycodone HCl (Roxicodone) 40 mg PRN Q4HRS PRN PO SEVERE PAIN Last administered on 03/05/17 05:32; Start 03/03/17 at 22:30 Non-Formulary Medication 4.5 gm Q8HRS IV ; Start 03/03/17 at 22:00; Status UNV Piperacillin Sod/ Tazobactam Sod 4.5 gm/Sodium Chloride 100 ml @ 200 mls/hr Q8HRS IV Last administered on 03/05/17 05:29; Start 03/03/17 at 23:00 Alprazolam (Xanax) 0.5 mg PRN Q6HRS PRN PO ANXIETY / AGITATION Last administered on 03/04/17 20:55; Start 03/03/17 at 23:30 Methadone HCl (Dolophine) 20 mg 1X ONCE PO Last administered on 03/04/17 00: 00; Start 03/04/17 at 00:00; Stop 03/04/17 at 00:01; Status DC Methadone HCl (Dolophine) 20 mg 1X ONCE PO Last administered on 03/04/17 08: 25; Start 03/04/17 at 08:30; Stop 03/04/17 at 08:31; Status DC Micafungin Sodium 100 mg/Dextrose 100 ml @ 100 mls/hr Q24H IV Last administered on 03/04/17 12:37; Start 03/04/17 at 12:00; Stop 03/05/17 at 09:00 ; Status DC Vancomycin HCl (Vanco Per Pharmacy) 1 each PRN DAILY PRN MC SEE COMMENTS Last administered on 03/05/17 10:03; Start 03/04/17 at 11:15 Vancomycin HCl 2 gm/Sodium Chloride 500 ml @ 250 mls/hr 1X ONCE IV Last administered on 03/04/17 12:28; Start 03/04/17 at 12:00; Stop 03/04/17 at 13:59 ; Status DC Vancomycin HCl 1.75 gm/Sodium Chloride 500 ml @ 250 mls/hr Q8H IV Last administered on 03/05/17 05:29; Start 03/04/17 at 20:00 Vancomycin HCl 1 each 1X ONCE MC ; Start 03/05/17 at 11:30; Stop 03/05/17 at 11 :31; Status DC Diphenhydramine HCl (Benadryl) 25 mg PRN Q6HRS PRN IVP ITCHING; Start 03/04/17 at 14:15 Insulin Aspart (NovoLOG) 0-5 UNITS TIDWMEALS SQ ; Start 03/04/17 at 17:00 Dextrose (Dextrose 50%-Water Syringe) 12.5 gm PRN Q15MIN PRN IV SEE COMMENTS; Start 03/04/17 at 14:30 Acetaminophen (Tylenol) 500 mg PRN Q4HRS PRN PO MILD PAIN / TEMP Last administered on 03/04/17 20:55; Start 03/04/17 at 15:45 Sincalide 2.4 mcg/ Sodium Chloride 30 ml @ 0 mls/hr 1X ONCE IV Last administered on 03/05/17 11:30; Start 03/05/17 at 11:15; Stop 03/05/17 at 11:16 ; Status DC Active Scripts Active Reported Zosyn 4.5 Gm Pre-Mix Bag (Kgbpssmeopid-Uert-Pggwsbrm,Iso) 4.5 Gm/100 Ml Froz.piggy 4.5 Gm IV Q8HRS Aspirin 325 Mg Tablet 1 Tab PO DAILY Celebrex (Celecoxib) 200 Mg Capsule 1 Cap PO DAILY Oxycodone Hcl 20 Mg Tablet 40 Mg PO PRN Q4-6HRS PRN Ferrous Sulfate 325 Mg Tablet 1 Tab PO DAILY Invokana (Canagliflozin) 300 Mg Tablet 300 Mg PO DAILY Actos (Pioglitazone Hcl) 15 Mg Tablet 30 Mg PO DAILY Metformin Hcl 500 Mg Tablet 500 Mg PO BIDWMEALS Methadone Hcl 5 Mg Tablet 20 Mg PO QID Vitals/I & O Vital Sign - Last 24 Hours 03/04/17 03/04/17 03/04/17 03/04/17 14:27 15:24 17:02 19:28 Temp 97.6 99.4 97.6 99.4 Pulse 68 65 Resp 18 16 16 18 B/P (MAP) 119/74 (89) 151/76 (101) Pulse Ox 90 90 90 96 O2 Delivery Room Air Room Air Room Air Nasal Cannula O2 Flow Rate 2.0 03/04/17 03/04/17 03/05/17 03/05/17 20:10 22:24 02:30 05:32 Temp 98.9 98.2 98.9 98.2 Pulse 68 Resp 18 20 B/P (MAP) 126/87 (100) 144/85 (104) Pulse Ox 97 O2 Delivery Room Air Nasal Cannula Nasal Cannula Nasal Cannula O2 Flow Rate 2.0 2.0 2.0 03/05/17 03/05/17 03/05/17 07:00 08:00 11:00 Temp 99.7 99.7 Pulse 73 Resp 20 B/P (MAP) 151/85 (107) Pulse Ox 100 O2 Delivery Nasal Cannula Room Air O2 Flow Rate 2.0 Intake and Output 03/04/17 03/04/17 03/05/17 15:00 23:00 07:00 Intake Total 950 ml 700 ml Output Total 1850 ml Balance 950 ml -1150 ml JOHN VALENCIA MD Mar 05, 2017 12:23
--- NOTE | 2017-03-05 12:30 | RAD ---
Radionuclide hepatobiliary scan with gallbladder ejection fraction, 03/05/2017: History: Abdominal pain Following IV injection of 5.5 mCi of technetium 99m Choletec there was prompt uptake of the radionuclide from the blood stream by the liver. Activity is present in the gallbladder and bile ducts at 10 minutes. Small bowel activity develops at 15 minutes. Additional imaging was performed following IV injection of 2.4 mcg of cholecystokinin. The gallbladder ejection fraction was calculated at 23%. 30-50% is considered to be the borderline low range. IMPRESSION: 1. Normal radionuclide hepatobiliary scan. 2. Low gallbladder ejection fraction of 23%.
[2017-03-05] MEDS: ALPRAZolam 0.5 MG TABLET PO PRN (12:58)
[2017-03-05 13:16] LABS: HEP A TOTAL ABDY Reactive (Negative); HEP B SURFACE ABDY Non Reactive (.); HIV ANTIBODY Non Reactive (Non Reactive)
[2017-03-05 15:00] VITALS: BP 123/70
[2017-03-05 19:14] VITALS: BP 134/80
[2017-03-05 22:37] VITALS: BP 130/74
[2017-03-06 03:27] VITALS: BP 124/78
[2017-03-06] MEDS: VANCOMYCIN 1.75 GM in IV NORMAL SALINE 500ML BAG 500 ML IV SCH ×3 (04:00→20:47)
[2017-03-06 04:54] LABS: BASO # 0.2 x10^3/uL (0.0-0.2); BASO % 1 % (0-3); EOS % 3 % (0-3); HEMATOCRIT 34.7 % (39.0-53.0); HEMOGLOBIN 11.6 g/dL (13.0-17.5); LYMPH # 2.6 x10^3/uL (1.0-4.8); LYMPH % 10 % (24-48); MEAN CORPUSCULAR HEMOGLOBIN 30 pg (25-35); MEAN CORPUSCULAR HGB CONC 33 g/dL (31-37); MEAN CORPUSCULAR VOLUME 88 fL (79-100); MONO % 4 % (0-9); NEUT % 82 % (31-73); PLATELET COUNT 327 x10^3/uL (140-400); RED BLOOD COUNT 3.92 x10^6/uL (4.30-5.70); RED CELL DISTRIBUTION WIDTH 15.3 % (11.5-14.5); WHITE BLOOD COUNT 25.7 x10^3/uL (4.0-11.0)
[2017-03-06 05:41] LABS: ALBUMIN 2.3 g/dL (3.4-5.0); ALBUMIN/GLOBULIN RATIO 0.4 (1.0-1.7); CALCIUM 8.9 mg/dL (8.5-10.1); CREATININE 0.9 mg/dL (0.7-1.3); GFR 90.8; POTASSIUM 5.2 mmol/L (3.5-5.1); TOTAL BILIRUBIN 0.6 mg/dL (0.2-1.0); TOTAL PROTEIN 7.5 g/dL (6.4-8.2)
[2017-03-06] MEDS: PIPERACILLIN/TAZOBACTAM 4.5 GM in IV NORMAL SALINE 100ML 100 ML IV SCH ×3 (06:00→23:28)
[2017-03-06 07:00] VITALS: BP 177/94
[2017-03-06] MEDS: INSULIN ASPART 300 UNITS/3 ML INSULN.PEN SQ SCH ×3 (08:00→17:00)
[2017-03-06] MEDS ORDERED: LIDOCAINE 1% / SOD BICARB 8.4% 20 ML VIAL. IJ ONE (08:03)
--- NOTE | 2017-03-06 08:27 | PDOC ---
GENERAL General: patient remains lethargic and hard to arouse. will dc oxycodone though doubt it is problem with last dose early yesterday pm. exam stable. wbc increased to 25K this am. lymph node biopsy for today. surgery consult noted. Problems: VITAL SIGNS Vital Signs: Vital Signs Date Time Temp Pulse Resp B/P (MAP) Pulse Ox O2 Delivery O2 Flow Rate FiO2 03/06/17 03:27 98.0 78 20 124/78 (93) 98 Nasal Cannula 2.0 98.0 I & O I & O Intake and Output 03/06/17 07:00 Intake Total 2060 ml Output Total 5000 ml Balance -2940 ml Intake Oral 950 ml IV Total 1110 ml Output Urine Total 5000 ml ALLERGIES Allergies: Allergies Coded Allergies Type Severity Reaction Last Updated Verified ibuprofen Allergy Intermediate urinary retention,swelling 02/07/17 Yes MEDS Medications: Current Medications Medications (Trade) Dose Ordered Sig/[place] Start Time Stop Time Status Last Admin Dose Admin Acetaminophen (Tylenol) 500 mg PRN Q4HRS PRN 03/04/17 15:45 03/04/17 20:55 500 MG Alprazolam (Xanax) 0.5 mg PRN Q6HRS PRN 03/03/17 23:30 03/05/17 12:58 0.5 MG Aspirin (Claudy Aspirin) 325 mg DAILY 03/04/17 09:00 03/05/17 13:08 325 MG Dextrose (Dextrose 50%-Water Syringe) 12.5 gm PRN Q15MIN PRN 03/04/17 14:30 Diphenhydramine HCl (Benadryl) 25 mg PRN Q6HRS PRN 03/04/17 14:15 Ferrous Sulfate (Feosol) 325 mg DAILY 03/04/17 09:00 03/05/17 13:06 325 MG Info (Do NOT chart on this entry -- for MONITORING) 1 each PRN DAILY PRN 03/03/17 16:15 03/05/17 16:14 DC Insulin Aspart (NovoLOG) 0-5 UNITS TIDWMEALS 03/04/17 17:00 Iohexol (Omnipaque 350 Mg/ml) 90 ml 1X ONCE 03/03/17 16:00 03/03/17 16:03 DC 03/03/17 16:30 90 ML Lidocaine/Sodium Bicarbonate (Buffered Lidocaine 1%) 20 ml STK-MED ONCE 03/06/17 08:03 03/06/17 08:04 DC Metformin HCl (Glucophage) 500 mg BIDWMEALS 03/06/17 08:00 Methadone HCl (Dolophine) 20 mg 1X ONCE 03/04/17 08:30 03/04/17 08:31 DC 03/04/17 08:25 20 MG Micafungin Sodium 100 mg/Dextrose 100 ml @ 100 mls/hr Q24H 03/04/17 12:00 03/05/17 09:00 DC 03/04/17 12:37 100 MLS/HR Morphine Sulfate 4 mg PRN Q2HR PRN 03/03/17 18:00 03/04/17 17:59 DC 03/04/17 05:55 4 MG Non-Formulary Medication 4.5 gm Q8HRS 03/03/17 22:00 UNV Ondansetron HCl (Zofran) 4 mg PRN Q8HRS PRN 03/03/17 18:00 03/04/17 17:59 DC 03/04/17 08:05 4 MG Oxycodone HCl (Roxicodone) 40 mg PRN Q4HRS PRN 03/03/17 22:30 03/05/17 13:16 40 MG Pioglitazone HCl (Actos) 30 mg DAILY 03/04/17 09:00 03/05/17 13:08 30 MG Piperacillin Sod/ Tazobactam Sod 4.5 gm/Sodium Chloride 100 ml @ 200 mls/hr Q8HRS 03/03/17 23:00 03/06/17 06:00 200 MLS/HR Sincalide 2.4 mcg/ Sodium Chloride 30 ml @ 0 mls/hr 1X ONCE 03/05/17 11:15 03/05/17 11:16 DC 03/05/17 11:30 2.4 MLS/HR Sodium Chloride 1,000 ml @ 1,000 mls/hr 1X ONCE 03/03/17 16:30 03/03/17 17:29 DC 03/03/17 16:55 1,000 MLS/HR Vancomycin HCl 1 each 1X ONCE 03/05/17 11:30 03/05/17 11:31 DC Vancomycin HCl (Vanco Per Pharmacy) 1 each PRN DAILY PRN 03/04/17 11:15 03/05/17 16:40 1 EACH Vancomycin HCl 1.75 gm/Sodium Chloride 500 ml @ 250 mls/hr Q8H 03/04/17 20:00 03/06/17 04:00 250 MLS/HR Vancomycin HCl 2 gm/Sodium Chloride 500 ml @ 250 mls/hr 1X ONCE 03/04/17 12:00 03/04/17 13:59 DC 03/04/17 12:28 250 MLS/HR LAB Lab: Laboratory Tests Test 03/05/17 12:47 03/05/17 12:49 03/05/17 16:59 03/05/17 20:39 Vancomycin Level Trough 14.2 mcg/mL (10.0-20.0) Vancomycin Last Dose Date 03/05/17 Vancomycin Last Dose Time 0400 Glucose (Fingerstick) 110 mg/dL (70-99) 116 mg/dL (70-99) 99 mg/dL (70-99) Test 03/06/17 04:40 03/06/17 07:52 White Blood Count 25.7 x10^3/uL (4.0-11.0) Red Blood Count 3.92 x10^6/uL (4.30-5.70) Hemoglobin 11.6 g/dL (13.0-17.5) Hematocrit 34.7 % (39.0-53.0) Mean Corpuscular Volume 88 fL (79-100) Mean Corpuscular Hemoglobin 30 pg (25-35) Mean Corpuscular Hemoglobin Concent 33 g/dL (31-37) Red Cell Distribution Width 15.3 % (11.5-14.5) Platelet Count 327 x10^3/uL (140-400) Neutrophils (%) (Auto) 82 % (31-73) Lymphocytes (%) (Auto) 10 % (24-48) Monocytes (%) (Auto) 4 % (0-9) Eosinophils (%) (Auto) 3 % (0-3) Basophils (%) (Auto) 1 % (0-3) Neutrophils # (Auto) 21.1 x10^3uL (1.8-7.7) Lymphocytes # (Auto) 2.6 x10^3/uL (1.0-4.8) Monocytes # (Auto) 1.1 x10^3/uL (0.0-1.1) Eosinophils # (Auto) 0.7 x10^3/uL (0.0-0.7) Basophils # (Auto) 0.2 x10^3/uL (0.0-0.2) Sodium Level 137 mmol/L (136-145) Potassium Level 5.2 mmol/L (3.5-5.1) Chloride Level 98 mmol/L (98-107) Carbon Dioxide Level 30 mmol/L (21-32) Anion Gap 9 (6-14) Blood Urea Nitrogen 15 mg/dL (8-26) Creatinine 0.9 mg/dL (0.7-1.3) Estimated GFR (Cockcroft-Gault) 90.8 BUN/Creatinine Ratio 17 (6-20) Glucose Level 90 mg/dL (70-99) Calcium Level 8.9 mg/dL (8.5-10.1) Total Bilirubin 0.6 mg/dL (0.2-1.0) Aspartate Amino Transf (AST/SGOT) 288 U/L (15-37) Alanine Aminotransferase (ALT/SGPT) 81 U/L (16-63) Alkaline Phosphatase 478 U/L (46-116) Total Protein 7.5 g/dL (6.4-8.2) Albumin 2.3 g/dL (3.4-5.0) Albumin/Globulin Ratio 0.4 (1.0-1.7) Glucose (Fingerstick) 80 mg/dL (70-99) SEAN GUERRA MD Mar 06, 2017 08:27
--- NOTE | 2017-03-06 08:39 | PDOC ---
Infectious Disease Note Subjective Subjective pt feeling better ROS ROS GEN: Denies fevers, chills, sweats HEENT: Denies blurred vision, sore throat CV: Denies chest pain RESP: Denies shortness of air, cough GI: Denies n/v/d NEURO: Denies confusion, dizziness MSK: Denies weakness, joint pain/swelling Vital Sign Vital Signs Vital Signs Date Time Temp Pulse Resp B/P (MAP) Pulse Ox O2 Delivery O2 Flow Rate FiO2 03/06/17 03:27 98.0 78 20 124/78 (93) 98 Nasal Cannula 2.0 98.0 Physical Exam PHYSICAL EXAM GENERAL: NAD, Alert HEENT: PERRL, OC/OP NECK: Supple, no JVD, no LN LUNGS: Clear HEART: S1S2, no gallop, no murmur ABD: Soft, NT, no organomegaly, no rebound EXT: No edema, no cyanosis [employer]ING [employer]ER: Alert, oriented x 3, no focal neurologic deficit SKIN: No rash IV: ok Labs Lab Laboratory Tests Test 03/05/17 12:47 03/05/17 12:49 03/05/17 16:59 03/05/17 20:39 Vancomycin Level Trough 14.2 mcg/mL (10.0-20.0) Vancomycin Last Dose Date 03/05/17 Vancomycin Last Dose Time 0400 Glucose (Fingerstick) 110 mg/dL (70-99) 116 mg/dL (70-99) 99 mg/dL (70-99) Test 03/06/17 04:40 03/06/17 07:52 White Blood Count 25.7 x10^3/uL (4.0-11.0) Red Blood Count 3.92 x10^6/uL (4.30-5.70) Hemoglobin 11.6 g/dL (13.0-17.5) Hematocrit 34.7 % (39.0-53.0) Mean Corpuscular Volume 88 fL (79-100) Mean Corpuscular Hemoglobin 30 pg (25-35) Mean Corpuscular Hemoglobin Concent 33 g/dL (31-37) Red Cell Distribution Width 15.3 % (11.5-14.5) Platelet Count 327 x10^3/uL (140-400) Neutrophils (%) (Auto) 82 % (31-73) Lymphocytes (%) (Auto) 10 % (24-48) Monocytes (%) (Auto) 4 % (0-9) Eosinophils (%) (Auto) 3 % (0-3) Basophils (%) (Auto) 1 % (0-3) Neutrophils # (Auto) 21.1 x10^3uL (1.8-7.7) Lymphocytes # (Auto) 2.6 x10^3/uL (1.0-4.8) Monocytes # (Auto) 1.1 x10^3/uL (0.0-1.1) Eosinophils # (Auto) 0.7 x10^3/uL (0.0-0.7) Basophils # (Auto) 0.2 x10^3/uL (0.0-0.2) Sodium Level 137 mmol/L (136-145) Potassium Level 5.2 mmol/L (3.5-5.1) Chloride Level 98 mmol/L (98-107) Carbon Dioxide Level 30 mmol/L (21-32) Anion Gap 9 (6-14) Blood Urea Nitrogen 15 mg/dL (8-26) Creatinine 0.9 mg/dL (0.7-1.3) Estimated GFR (Cockcroft-Gault) 90.8 BUN/Creatinine Ratio 17 (6-20) Glucose Level 90 mg/dL (70-99) Calcium Level 8.9 mg/dL (8.5-10.1) Total Bilirubin 0.6 mg/dL (0.2-1.0) Aspartate Amino Transf (AST/SGOT) 288 U/L (15-37) Alanine Aminotransferase (ALT/SGPT) 81 U/L (16-63) Alkaline Phosphatase 478 U/L (46-116) Total Protein 7.5 g/dL (6.4-8.2) Albumin 2.3 g/dL (3.4-5.0) Albumin/Globulin Ratio 0.4 (1.0-1.7) Glucose (Fingerstick) 80 mg/dL (70-99) Micro culture neg Objective Assessment Sepsis, ? 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 Intra-op cultures no growth, had been on abx prior to surgery h/o Enterococcus-PNC sensitive from 02/01, swab cx of wound Diabetes Plan Plan of Care cont antibiotics will start scaling down HELEN RODARTE MD Mar 06, 2017 08:39
--- NOTE | 2017-03-06 08:48 | PDOC ---
MELANIE PEÑA VIDEO TAPE EDITOR 03/06/17 0848: SURGICAL PROGRESS NOTE Subjective still difficult to arouse today moans Vital Signs Vital Signs Date Time Temp Pulse Resp B/P (MAP) Pulse Ox O2 Delivery O2 Flow Rate FiO2 03/06/17 03:27 98.0 78 20 124/78 (93) 98 Nasal Cannula 2.0 98.0 I&O Intake and Output 03/06/17 07:00 Intake Total 2060 ml Output Total 5000 ml Balance -2940 ml Intake Oral 950 ml IV Total 1110 ml Output Urine Total 5000 ml General: Other (lethargic, will open eyes when awakened ) Abdomen: Soft, Other (apppears nontender ) Labs Laboratory Tests Test 03/04/17 12:05 03/04/17 16:40 03/04/17 17:50 03/04/17 20:39 Hepatitis A Antibody Total Reactive (Negative) Hepatitis B Surface Antigen Negative (Negative) Hepatitis B Surface Antibody Non reactive (.) Hepatitis B Core Total Antibody Negative (Negative) Hepatitis C Antibody <0.1 s/co ratio HIV (1&2) Antibody Non reactive (Non Reactive) Glucose (Fingerstick) 108 mg/dL (70-99) 134 mg/dL (70-99) Lactic Acid Level 1.4 mmol/L (0.4-2.0) Test 03/05/17 05:50 03/05/17 07:59 03/05/17 12:47 03/05/17 12:49 White Blood Count 22.5 x10^3/uL (4.0-11.0) Red Blood Count 3.86 x10^6/uL (4.30-5.70) Hemoglobin 11.3 g/dL (13.0-17.5) Hematocrit 34.3 % (39.0-53.0) Mean Corpuscular Volume 89 fL (79-100) Mean Corpuscular Hemoglobin 29 pg (25-35) Mean Corpuscular Hemoglobin Concent 33 g/dL (31-37) Red Cell Distribution Width 14.7 % (11.5-14.5) Platelet Count 256 x10^3/uL (140-400) Erythrocyte Sedimentation Rate 48 (0-15) Sodium Level 131 mmol/L (136-145) Potassium Level 3.9 mmol/L (3.5-5.1) Chloride Level 92 mmol/L (98-107) Carbon Dioxide Level 30 mmol/L (21-32) Anion Gap 9 (6-14) Blood Urea Nitrogen 13 mg/dL (8-26) Creatinine 0.9 mg/dL (0.7-1.3) Estimated GFR (Cockcroft-Gault) 90.8 BUN/Creatinine Ratio 14 (6-20) Glucose Level 116 mg/dL (70-99) Calcium Level 8.5 mg/dL (8.5-10.1) Total Bilirubin 0.2 mg/dL (0.2-1.0) Aspartate Amino Transf (AST/SGOT) 217 U/L (15-37) Alanine Aminotransferase (ALT/SGPT) 82 U/L (16-63) Alkaline Phosphatase 412 U/L (46-116) Total Protein 7.1 g/dL (6.4-8.2) Albumin 2.5 g/dL (3.4-5.0) Albumin/Globulin Ratio 0.5 (1.0-1.7) Glucose (Fingerstick) 112 mg/dL (70-99) 110 mg/dL (70-99) Vancomycin Level Trough 14.2 mcg/mL (10.0-20.0) Vancomycin Last Dose Date 03/05/17 Vancomycin Last Dose Time 0400 Test 03/05/17 16:59 03/05/17 20:39 03/06/17 04:40 03/06/17 07:52 Glucose (Fingerstick) 116 mg/dL (70-99) 99 mg/dL (70-99) 80 mg/dL (70-99) White Blood Count 25.7 x10^3/uL (4.0-11.0) Red Blood Count 3.92 x10^6/uL (4.30-5.70) Hemoglobin 11.6 g/dL (13.0-17.5) Hematocrit 34.7 % (39.0-53.0) Mean Corpuscular Volume 88 fL (79-100) Mean Corpuscular Hemoglobin 30 pg (25-35) Mean Corpuscular Hemoglobin Concent 33 g/dL (31-37) Red Cell Distribution Width 15.3 % (11.5-14.5) Platelet Count 327 x10^3/uL (140-400) Neutrophils (%) (Auto) 82 % (31-73) Lymphocytes (%) (Auto) 10 % (24-48) Monocytes (%) (Auto) 4 % (0-9) Eosinophils (%) (Auto) 3 % (0-3) Basophils (%) (Auto) 1 % (0-3) Neutrophils # (Auto) 21.1 x10^3uL (1.8-7.7) Lymphocytes # (Auto) 2.6 x10^3/uL (1.0-4.8) Monocytes # (Auto) 1.1 x10^3/uL (0.0-1.1) Eosinophils # (Auto) 0.7 x10^3/uL (0.0-0.7) Basophils # (Auto) 0.2 x10^3/uL (0.0-0.2) Sodium Level 137 mmol/L (136-145) Potassium Level 5.2 mmol/L (3.5-5.1) Chloride Level 98 mmol/L (98-107) Carbon Dioxide Level 30 mmol/L (21-32) Anion Gap 9 (6-14) Blood Urea Nitrogen 15 mg/dL (8-26) Creatinine 0.9 mg/dL (0.7-1.3) Estimated GFR (Cockcroft-Gault) 90.8 BUN/Creatinine Ratio 17 (6-20) Glucose Level 90 mg/dL (70-99) Calcium Level 8.9 mg/dL (8.5-10.1) Total Bilirubin 0.6 mg/dL (0.2-1.0) Aspartate Amino Transf (AST/SGOT) 288 U/L (15-37) Alanine Aminotransferase (ALT/SGPT) 81 U/L (16-63) Alkaline Phosphatase 478 U/L (46-116) Total Protein 7.5 g/dL (6.4-8.2) Albumin 2.3 g/dL (3.4-5.0) Albumin/Globulin Ratio 0.4 (1.0-1.7) Laboratory Tests Test 03/05/17 12:47 03/05/17 12:49 03/05/17 16:59 03/05/17 20:39 Vancomycin Level Trough 14.2 mcg/mL (10.0-20.0) Vancomycin Last Dose Date 03/05/17 Vancomycin Last Dose Time 0400 Glucose (Fingerstick) 110 mg/dL (70-99) 116 mg/dL (70-99) 99 mg/dL (70-99) Test 03/06/17 04:40 03/06/17 07:52 White Blood Count 25.7 x10^3/uL (4.0-11.0) Red Blood Count 3.92 x10^6/uL (4.30-5.70) Hemoglobin 11.6 g/dL (13.0-17.5) Hematocrit 34.7 % (39.0-53.0) Mean Corpuscular Volume 88 fL (79-100) Mean Corpuscular Hemoglobin 30 pg (25-35) Mean Corpuscular Hemoglobin Concent 33 g/dL (31-37) Red Cell Distribution Width 15.3 % (11.5-14.5) Platelet Count 327 x10^3/uL (140-400) Neutrophils (%) (Auto) 82 % (31-73) Lymphocytes (%) (Auto) 10 % (24-48) Monocytes (%) (Auto) 4 % (0-9) Eosinophils (%) (Auto) 3 % (0-3) Basophils (%) (Auto) 1 % (0-3) Neutrophils # (Auto) 21.1 x10^3uL (1.8-7.7) Lymphocytes # (Auto) 2.6 x10^3/uL (1.0-4.8) Monocytes # (Auto) 1.1 x10^3/uL (0.0-1.1) Eosinophils # (Auto) 0.7 x10^3/uL (0.0-0.7) Basophils # (Auto) 0.2 x10^3/uL (0.0-0.2) Sodium Level 137 mmol/L (136-145) Potassium Level 5.2 mmol/L (3.5-5.1) Chloride Level 98 mmol/L (98-107) Carbon Dioxide Level 30 mmol/L (21-32) Anion Gap 9 (6-14) Blood Urea Nitrogen 15 mg/dL (8-26) Creatinine 0.9 mg/dL (0.7-1.3) Estimated GFR (Cockcroft-Gault) 90.8 BUN/Creatinine Ratio 17 (6-20) Glucose Level 90 mg/dL (70-99) Calcium Level 8.9 mg/dL (8.5-10.1) Total Bilirubin 0.6 mg/dL (0.2-1.0) Aspartate Amino Transf (AST/SGOT) 288 U/L (15-37) Alanine Aminotransferase (ALT/SGPT) 81 U/L (16-63) Alkaline Phosphatase 478 U/L (46-116) Total Protein 7.5 g/dL (6.4-8.2) Albumin 2.3 g/dL (3.4-5.0) Albumin/Globulin Ratio 0.4 (1.0-1.7) Glucose (Fingerstick) 80 mg/dL (70-99) Problem List Problems Medical Problems: (1) Chest pain Status: Acute Assessment/Plan sepsis, fevers, leukocytosis no findings that gallbladder is source of infection--ongoing workup D/W Dr Walls, plans for IR biopsy of LN no surgical plans at this time Problems: KEITH GUZMÁN MD 03/07/17 0750: SURGICAL PROGRESS NOTE Assessment/Plan Agree, do not believe that gallbladder is infection source, no evidence of acute gallbladder process; recommend further workup including LN biopsy; I will sign off, please call if I can assist in the future Problems: MELANIE PEÑA APRN Mar 06, 2017 08:48 KEITH GUZMÁN MD Mar 07, 2017 07:50
--- NOTE | 2017-03-06 10:11 | RAD ---
Ultrasound-guided biopsy of right inguinal adenopathy 03/06/2017 Indication: Multifocal adenopathy. Concern for lymphoma or sharp lordosis Discussion: The risks and benefits of the procedure were discussed the patient. Informed consent was obtained. A timeout procedure was performed. The right groin was prepped and draped using maximum sterile barrier technique. Limited ultrasound evaluation demonstrated multiple small normal-appearing lymph nodes in the right axilla. Multiple small normal-appearing lymph nodes are seen in the right groin however a few mildly prominent lymph nodes were also seen in the right groin. 1% lidocaine was administered to the skin and subcutaneous tissues. Largest lymph node in the right groin was started for biopsy. Multiple core biopsies of the most prominent node in the right groin were obtained using an 18 Franseen needle and 18-gauge Temno needle. Samples were divided amongst formalin and RPMI fluid. Manual pressure was held to achieve hemostasis. A sterile dressing was applied. No immediate complications were identified. Anesthesia: Local only Impression: Status post ultrasound-guided biopsy of right inguinal adenopathy
[2017-03-06] MEDS: metFORMIN 500 MG TABLET PO SCH ×2 (10:27→17:26)
[2017-03-06] MEDS: METHADONE 10 MG TABLET. PO SCH ×4 (10:27→20:47)
[2017-03-06] MEDS: FERROUS SULFATE 325 MG TABLET. PO SCH (10:27)
[2017-03-06] MEDS: ASPIRIN 325 MG TABLET PO SCH (10:27)
[2017-03-06] MEDS: PIOGLITAZONE 15 MG TABLET. PO SCH (10:28)
[2017-03-06] MEDS: Canagliflozin (Invokana) 300 MG TABLET PO SCH (10:28)
[2017-03-06 11:00] VITALS: BP 168/86
[2017-03-06] MEDS: VANCOMYCIN PER PHARMACY MC PRN (12:51)
[2017-03-06 15:00] VITALS: BP 142/79
--- NOTE | 2017-03-06 15:38 | PDOC ---
PROGRESS NOTES Subjective Subjective c/c - f/u of lymphadenopathy Objective Objective Vital Signs Date Time Temp Pulse Resp B/P (MAP) Pulse Ox O2 Delivery O2 Flow Rate FiO2 03/06/17 11:00 99.9 84 18 168/86 (113) 94 Room Air 99.9 03/06/17 03:27 2.0 Intake and Output 03/06/17 06:59 Intake Total 2060 ml Output Total 5000 ml Balance -2940 ml Intake Oral 950 ml IV Total 1110 ml Output Urine Total 5000 ml Physical Exam Heart: Normal S1, Normal S2 Lungs: Clear to auscultation Assessment Assessment Problems Medical Problems: (1) Chest pain Status: Acute Assessment/Plan Impression: 1. Generalized lymphadenopathy 2. Neutrophilic leukocytosis 3. Fever 4. Rash 5. Elevated LFTs 6. Recent enterococcal infection of right TKA Plan: I have reviewed his CT scans. Compared to a CT Chest here from 05/2014, there is no significant change in the size of his axillary nodes. Lymphoma certainly is a possibility, - bx by IR 03/06/17 Check HIV and hepatitis serologies. Comment Review of Relevant I have reviewed the following items tod (where applicable) has been applied. Labs Laboratory Tests Test 03/04/17 16:40 03/04/17 17:50 03/04/17 20:39 03/05/17 05:50 Glucose (Fingerstick) 108 mg/dL (70-99) 134 mg/dL (70-99) Lactic Acid Level 1.4 mmol/L (0.4-2.0) White Blood Count 22.5 x10^3/uL (4.0-11.0) Red Blood Count 3.86 x10^6/uL (4.30-5.70) Hemoglobin 11.3 g/dL (13.0-17.5) Hematocrit 34.3 % (39.0-53.0) Mean Corpuscular Volume 89 fL (79-100) Mean Corpuscular Hemoglobin 29 pg (25-35) Mean Corpuscular Hemoglobin Concent 33 g/dL (31-37) Red Cell Distribution Width 14.7 % (11.5-14.5) Platelet Count 256 x10^3/uL (140-400) Erythrocyte Sedimentation Rate 48 (0-15) Sodium Level 131 mmol/L (136-145) Potassium Level 3.9 mmol/L (3.5-5.1) Chloride Level 92 mmol/L (98-107) Carbon Dioxide Level 30 mmol/L (21-32) Anion Gap 9 (6-14) Blood Urea Nitrogen 13 mg/dL (8-26) Creatinine 0.9 mg/dL (0.7-1.3) Estimated GFR (Cockcroft-Gault) 90.8 BUN/Creatinine Ratio 14 (6-20) Glucose Level 116 mg/dL (70-99) Calcium Level 8.5 mg/dL (8.5-10.1) Total Bilirubin 0.2 mg/dL (0.2-1.0) Aspartate Amino Transf (AST/SGOT) 217 U/L (15-37) Alanine Aminotransferase (ALT/SGPT) 82 U/L (16-63) Alkaline Phosphatase 412 U/L (46-116) Total Protein 7.1 g/dL (6.4-8.2) Albumin 2.5 g/dL (3.4-5.0) Albumin/Globulin Ratio 0.5 (1.0-1.7) Test 03/05/17 07:59 03/05/17 12:47 03/05/17 12:49 03/05/17 16:59 Glucose (Fingerstick) 112 mg/dL (70-99) 110 mg/dL (70-99) 116 mg/dL (70-99) Vancomycin Level Trough 14.2 mcg/mL (10.0-20.0) Vancomycin Last Dose Date 03/05/17 Vancomycin Last Dose Time 0400 Test 03/05/17 20:39 03/06/17 04:40 03/06/17 07:52 03/06/17 09:33 Glucose (Fingerstick) 99 mg/dL (70-99) 80 mg/dL (70-99) 81 mg/dL (70-99) White Blood Count 25.7 x10^3/uL (4.0-11.0) Red Blood Count 3.92 x10^6/uL (4.30-5.70) Hemoglobin 11.6 g/dL (13.0-17.5) Hematocrit 34.7 % (39.0-53.0) Mean Corpuscular Volume 88 fL (79-100) Mean Corpuscular Hemoglobin 30 pg (25-35) Mean Corpuscular Hemoglobin Concent 33 g/dL (31-37) Red Cell Distribution Width 15.3 % (11.5-14.5) Platelet Count 327 x10^3/uL (140-400) Neutrophils (%) (Auto) 82 % (31-73) Lymphocytes (%) (Auto) 10 % (24-48) Monocytes (%) (Auto) 4 % (0-9) Eosinophils (%) (Auto) 3 % (0-3) Basophils (%) (Auto) 1 % (0-3) Neutrophils # (Auto) 21.1 x10^3uL (1.8-7.7) Lymphocytes # (Auto) 2.6 x10^3/uL (1.0-4.8) Monocytes # (Auto) 1.1 x10^3/uL (0.0-1.1) Eosinophils # (Auto) 0.7 x10^3/uL (0.0-0.7) Basophils # (Auto) 0.2 x10^3/uL (0.0-0.2) Sodium Level 137 mmol/L (136-145) Potassium Level 5.2 mmol/L (3.5-5.1) Chloride Level 98 mmol/L (98-107) Carbon Dioxide Level 30 mmol/L (21-32) Anion Gap 9 (6-14) Blood Urea Nitrogen 15 mg/dL (8-26) Creatinine 0.9 mg/dL (0.7-1.3) Estimated GFR (Cockcroft-Gault) 90.8 BUN/Creatinine Ratio 17 (6-20) Glucose Level 90 mg/dL (70-99) Calcium Level 8.9 mg/dL (8.5-10.1) Total Bilirubin 0.6 mg/dL (0.2-1.0) Aspartate Amino Transf (AST/SGOT) 288 U/L (15-37) Alanine Aminotransferase (ALT/SGPT) 81 U/L (16-63) Alkaline Phosphatase 478 U/L (46-116) Total Protein 7.5 g/dL (6.4-8.2) Albumin 2.3 g/dL (3.4-5.0) Albumin/Globulin Ratio 0.4 (1.0-1.7) Test 03/06/17 12:06 Glucose (Fingerstick) 142 mg/dL (70-99) Laboratory Tests Test 03/05/17 16:59 03/05/17 20:39 03/06/17 04:40 03/06/17 07:52 Glucose (Fingerstick) 116 mg/dL (70-99) 99 mg/dL (70-99) 80 mg/dL (70-99) White Blood Count 25.7 x10^3/uL (4.0-11.0) Red Blood Count 3.92 x10^6/uL (4.30-5.70) Hemoglobin 11.6 g/dL (13.0-17.5) Hematocrit 34.7 % (39.0-53.0) Mean Corpuscular Volume 88 fL (79-100) Mean Corpuscular Hemoglobin 30 pg (25-35) Mean Corpuscular Hemoglobin Concent 33 g/dL (31-37) Red Cell Distribution Width 15.3 % (11.5-14.5) Platelet Count 327 x10^3/uL (140-400) Neutrophils (%) (Auto) 82 % (31-73) Lymphocytes (%) (Auto) 10 % (24-48) Monocytes (%) (Auto) 4 % (0-9) Eosinophils (%) (Auto) 3 % (0-3) Basophils (%) (Auto) 1 % (0-3) Neutrophils # (Auto) 21.1 x10^3uL (1.8-7.7) Lymphocytes # (Auto) 2.6 x10^3/uL (1.0-4.8) Monocytes # (Auto) 1.1 x10^3/uL (0.0-1.1) Eosinophils # (Auto) 0.7 x10^3/uL (0.0-0.7) Basophils # (Auto) 0.2 x10^3/uL (0.0-0.2) Sodium Level 137 mmol/L (136-145) Potassium Level 5.2 mmol/L (3.5-5.1) Chloride Level 98 mmol/L (98-107) Carbon Dioxide Level 30 mmol/L (21-32) Anion Gap 9 (6-14) Blood Urea Nitrogen 15 mg/dL (8-26) Creatinine 0.9 mg/dL (0.7-1.3) Estimated GFR (Cockcroft-Gault) 90.8 BUN/Creatinine Ratio 17 (6-20) Glucose Level 90 mg/dL (70-99) Calcium Level 8.9 mg/dL (8.5-10.1) Total Bilirubin 0.6 mg/dL (0.2-1.0) Aspartate Amino Transf (AST/SGOT) 288 U/L (15-37) Alanine Aminotransferase (ALT/SGPT) 81 U/L (16-63) Alkaline Phosphatase 478 U/L (46-116) Total Protein 7.5 g/dL (6.4-8.2) Albumin 2.3 g/dL (3.4-5.0) Albumin/Globulin Ratio 0.4 (1.0-1.7) Test 03/06/17 09:33 03/06/17 12:06 Glucose (Fingerstick) 81 mg/dL (70-99) 142 mg/dL (70-99) Microbiology 03/03/17 Blood Culture - Preliminary, Resulted NO GROWTH AFTER 2 DAYS Medications Current Medications Morphine Sulfate 4 mg PRN Q15MIN PRN IV/SQ PAIN GREATER THAN 3/10 Last administered on 03/03/17 17:00; Start 03/03/17 at 15:00; Stop 03/04/17 at 14:59 ; Status DC Ondansetron HCl (Zofran) 4 mg 1X ONCE IV Last administered on 03/03/17 15:20 ; Start 03/03/17 at 15:00; Stop 03/03/17 at 15:01; Status DC Sodium Chloride 1,000 ml @ 1,000 mls/hr 1X ONCE IV Last administered on 15:20; Start 03/03/17 at 15:30; Stop 03/03/17 at 16:29; Status DC Iohexol (Omnipaque 350 Mg/ml) 90 ml 1X ONCE IV Last administered on 03/03/17 16:30; Start 03/03/17 at 16:00; Stop 03/03/17 at 16:03; Status DC Info (Do NOT chart on this entry -- for MONITORING) 1 each PRN DAILY PRN MC SEE COMMENTS; Start 03/03/17 at 16:15; Stop 03/05/17 at 16:14; Status DC Sodium Chloride 1,000 ml @ 1,000 mls/hr 1X ONCE IV Last administered on 16:55; Start 03/03/17 at 16:30; Stop 03/03/17 at 17:29; Status DC Ondansetron HCl (Zofran) 4 mg PRN Q8HRS PRN IV NAUSEA/VOMITING Last administered on 03/04/17 08:05; Start 03/03/17 at 18:00; Stop 03/04/17 at 17:59 ; Status DC Morphine Sulfate 4 mg PRN Q2HR PRN IV PAIN Last administered on 03/04/17 05:55 ; Start 03/03/17 at 18:00; Stop 03/04/17 at 17:59; Status DC Aspirin (Claudy Aspirin) 325 mg DAILY PO Last administered on 03/06/17 10:27; Start 03/04/17 at 09:00 Ferrous Sulfate (Feosol) 325 mg DAILY PO Last administered on 03/06/17 10:27; Start 03/04/17 at 09:00 Metformin HCl (Glucophage) 500 mg BIDWMEALS PO Last administered on 03/06/17 10:27; Start 03/06/17 at 08:00 Methadone HCl (Dolophine) 20 mg QID PO Last administered on 03/06/17 13:54; Start 03/04/17 at 09:00 Pioglitazone HCl (Actos) 30 mg DAILY PO Last administered on 03/06/17 10:28; Start 03/04/17 at 09:00 Non-Formulary Medication 300 mg DAILY PO Last administered on 03/06/17 10:28; Start 03/04/17 at 09:00 Oxycodone HCl (Roxicodone) 40 mg PRN Q4HRS PRN PO SEVERE PAIN Last administered on 03/05/17 13:16; Start 03/03/17 at 22:30 Non-Formulary Medication 4.5 gm Q8HRS IV ; Start 03/03/17 at 22:00; Status UNV Piperacillin Sod/ Tazobactam Sod 4.5 gm/Sodium Chloride 100 ml @ 200 mls/hr Q8HRS IV Last administered on 03/06/17 14:15; Start 03/03/17 at 23:00 Alprazolam (Xanax) 0.5 mg PRN Q6HRS PRN PO ANXIETY / AGITATION Last administered on 03/05/17 12:58; Start 03/03/17 at 23:30 Methadone HCl (Dolophine) 20 mg 1X ONCE PO Last administered on 03/04/17 00: 00; Start 03/04/17 at 00:00; Stop 03/04/17 at 00:01; Status DC Methadone HCl (Dolophine) 20 mg 1X ONCE PO Last administered on 03/04/17 08: 25; Start 03/04/17 at 08:30; Stop 03/04/17 at 08:31; Status DC Micafungin Sodium 100 mg/Dextrose 100 ml @ 100 mls/hr Q24H IV Last administered on 03/04/17 12:37; Start 03/04/17 at 12:00; Stop 03/05/17 at 09:00 ; Status DC Vancomycin HCl (Vanco Per Pharmacy) 1 each PRN DAILY PRN MC SEE COMMENTS Last administered on 03/06/17 12:51; Start 03/04/17 at 11:15 Vancomycin HCl 2 gm/Sodium Chloride 500 ml @ 250 mls/hr 1X ONCE IV Last administered on 03/04/17 12:28; Start 03/04/17 at 12:00; Stop 03/04/17 at 13:59 ; Status DC Vancomycin HCl 1.75 gm/Sodium Chloride 500 ml @ 250 mls/hr Q8H IV Last administered on 03/06/17 04:00; Start 03/04/17 at 20:00 Vancomycin HCl 1 each 1X ONCE MC ; Start 03/05/17 at 11:30; Stop 03/05/17 at 11 :31; Status DC Diphenhydramine HCl (Benadryl) 25 mg PRN Q6HRS PRN IVP ITCHING; Start 03/04/17 at 14:15 Insulin Aspart (NovoLOG) 0-5 UNITS TIDWMEALS SQ ; Start 03/04/17 at 17:00 Dextrose (Dextrose 50%-Water Syringe) 12.5 gm PRN Q15MIN PRN IV SEE COMMENTS; Start 03/04/17 at 14:30 Acetaminophen (Tylenol) 500 mg PRN Q4HRS PRN PO MILD PAIN / TEMP Last administered on 03/04/17 20:55; Start 03/04/17 at 15:45 Sincalide 2.4 mcg/ Sodium Chloride 30 ml @ 0 mls/hr 1X ONCE IV Last administered on 03/05/17t 11:30; Start 03/05/17 at 11:15; Stop 03/05/17 at 11:16 ; Status DC Lidocaine/Sodium Bicarbonate (Buffered Lidocaine 1%) 20 ml STK-MED ONCE IJ ; Start 03/06/17 at 08:03; Stop 03/06/17 at 08:04; Status DC Active Scripts Active Reported Zosyn 4.5 Gm Pre-Mix Bag (Ibvvqwlsnrtm-Xvei-Srfhtpxz,Iso) 4.5 Gm/100 Ml Froz.piggy 4.5 Gm IV Q8HRS Aspirin 325 Mg Tablet 1 Tab PO DAILY Celebrex (Celecoxib) 200 Mg Capsule 1 Cap PO DAILY Oxycodone Hcl 20 Mg Tablet 40 Mg PO PRN Q4-6HRS PRN Ferrous Sulfate 325 Mg Tablet 1 Tab PO DAILY Invokana (Canagliflozin) 300 Mg Tablet 300 Mg PO DAILY Actos (Pioglitazone Hcl) 15 Mg Tablet 30 Mg PO DAILY Metformin Hcl 500 Mg Tablet 500 Mg PO BIDWMEALS Methadone Hcl 5 Mg Tablet 20 Mg PO QID Vitals/I & O Vital Sign - Last 24 Hours 03/05/17 03/05/17 03/05/17 03/06/17 19:14 20:00 22:37 03:27 Temp 98.4 98.4 98.0 98.4 98.4 98.0 Pulse 69 77 78 Resp 18 20 20 B/P (MAP) 134/80 (98) 130/74 (92) 124/78 (93) Pulse Ox 98 97 98 O2 Delivery Room Air Nasal Cannula Nasal Cannula Nasal Cannula O2 Flow Rate 2.0 2.0 2.0 03/06/17 03/06/17 07:00 11:00 Temp 98.7 99.9 98.7 99.9 Pulse 71 84 Resp 18 18 B/P (MAP) 177/94 (121) 168/86 (113) Pulse Ox 97 94 O2 Delivery Room Air Room Air Intake and Output 03/05/17 03/05/17 03/06/17 14:59 22:59 06:59 Intake Total 505 ml 1105 ml 450 ml Output Total 3500 ml 1500 ml Balance 505 ml -2395 ml -1050 ml JOHN VALENCIA MD Mar 06, 2017 15:38
[2017-03-06 19:14] VITALS: BP 152/90
[2017-03-06 22:14] VITALS: BP 141/79
[2017-03-07 02:41] VITALS: BP 159/95
[2017-03-07] MEDS: PIPERACILLIN/TAZOBACTAM 4.5 GM in IV NORMAL SALINE 100ML 100 ML IV SCH ×3 (05:00→21:33)
[2017-03-07] MEDS: VANCOMYCIN 1.75 GM in IV NORMAL SALINE 500ML BAG 500 ML IV SCH ×3 (05:01→21:24)
[2017-03-07 05:27] LABS: BASO # 0.1 x10^3/uL (0.0-0.2); BASO % 1 % (0-3); EOS % 8 % (0-3); HEMATOCRIT 34.9 % (39.0-53.0); HEMOGLOBIN 11.8 g/dL (13.0-17.5); LYMPH # 3.3 x10^3/uL (1.0-4.8); LYMPH % 14 % (24-48); MEAN CORPUSCULAR HEMOGLOBIN 30 pg (25-35); MEAN CORPUSCULAR HGB CONC 34 g/dL (31-37); MEAN CORPUSCULAR VOLUME 89 fL (79-100); MONO % 1 % (0-9); NEUT % 77 % (31-73); PLATELET COUNT 388 x10^3/uL (140-400); RED BLOOD COUNT 3.95 x10^6/uL (4.30-5.70); RED CELL DISTRIBUTION WIDTH 15.6 % (11.5-14.5); WHITE BLOOD COUNT 23.9 x10^3/uL (4.0-11.0)
[2017-03-07 06:07] LABS: ALBUMIN 2.4 g/dL (3.4-5.0); ALBUMIN/GLOBULIN RATIO 0.5 (1.0-1.7); CALCIUM 9.2 mg/dL (8.5-10.1); CREATININE 0.8 mg/dL (0.7-1.3); GFR 104.1; TOTAL BILIRUBIN 0.2 mg/dL (0.2-1.0); TOTAL PROTEIN 7.4 g/dL (6.4-8.2)
[2017-03-07 06:14] LABS: POTASSIUM 3.9 mmol/L (3.5-5.1)
[2017-03-07 07:00] VITALS: BP 148/94
[2017-03-07] MEDS: INSULIN ASPART 300 UNITS/3 ML INSULN.PEN SQ SCH ×3 (08:00→17:00)
--- NOTE | 2017-03-07 08:38 | PDOC ---
Infectious Disease Note Subjective Subjective pt feeling better ROS ROS GEN: Denies fevers, chills, sweats HEENT: Denies blurred vision, sore throat CV: Denies chest pain RESP: Denies shortness of air, cough GI: Denies n/v/d NEURO: Denies confusion, dizziness MSK: Denies weakness, joint pain/swelling Vital Sign Vital Signs Vital Signs Date Time Temp Pulse Resp B/P (MAP) Pulse Ox O2 Delivery O2 Flow Rate FiO2 03/07/17 07:00 97.6 76 18 148/94 (112) 96 Room Air 97.6 03/07/17 02:41 2.0 Physical Exam PHYSICAL EXAM GENERAL: NAD, Alert HEENT: PERRL, OC/OP NECK: Supple, no JVD, no LN LUNGS: Clear HEART: S1S2, no gallop, no murmur ABD: Soft, NT, no organomegaly, no rebound EXT: No edema, no cyanosis DENTAL FRONT OFFICE ASSISTANT: Alert, oriented x 3, no focal neurologic deficit SKIN: No rash IV: ok Labs Lab Laboratory Tests Test 03/06/17 09:33 03/06/17 12:06 03/06/17 16:43 03/06/17 20:58 Glucose (Fingerstick) 81 mg/dL (70-99) 142 mg/dL (70-99) 82 mg/dL (70-99) 100 mg/dL (70-99) Test 03/07/17 05:17 03/07/17 07:17 White Blood Count 23.9 x10^3/uL (4.0-11.0) Red Blood Count 3.95 x10^6/uL (4.30-5.70) Hemoglobin 11.8 g/dL (13.0-17.5) Hematocrit 34.9 % (39.0-53.0) Mean Corpuscular Volume 89 fL (79-100) Mean Corpuscular Hemoglobin 30 pg (25-35) Mean Corpuscular Hemoglobin Concent 34 g/dL (31-37) Red Cell Distribution Width 15.6 % (11.5-14.5) Platelet Count 388 x10^3/uL (140-400) Neutrophils (%) (Auto) 77 % (31-73) Lymphocytes (%) (Auto) 14 % (24-48) Monocytes (%) (Auto) 1 % (0-9) Eosinophils (%) (Auto) 8 % (0-3) Basophils (%) (Auto) 1 % (0-3) Neutrophils # (Auto) 18.4 x10^3uL (1.8-7.7) Lymphocytes # (Auto) 3.3 x10^3/uL (1.0-4.8) Monocytes # (Auto) 0.2 x10^3/uL (0.0-1.1) Eosinophils # (Auto) 1.9 x10^3/uL (0.0-0.7) Basophils # (Auto) 0.1 x10^3/uL (0.0-0.2) Sodium Level 137 mmol/L (136-145) Potassium Level 3.9 mmol/L (3.5-5.1) Chloride Level 97 mmol/L (98-107) Carbon Dioxide Level 31 mmol/L (21-32) Anion Gap 9 (6-14) Blood Urea Nitrogen 13 mg/dL (8-26) Creatinine 0.8 mg/dL (0.7-1.3) Estimated GFR (Cockcroft-Gault) 104.1 BUN/Creatinine Ratio 16 (6-20) Glucose Level 85 mg/dL (70-99) Calcium Level 9.2 mg/dL (8.5-10.1) Total Bilirubin 0.2 mg/dL (0.2-1.0) Aspartate Amino Transf (AST/SGOT) 246 U/L (15-37) Alanine Aminotransferase (ALT/SGPT) 77 U/L (16-63) Alkaline Phosphatase 523 U/L (46-116) Total Protein 7.4 g/dL (6.4-8.2) Albumin 2.4 g/dL (3.4-5.0) Albumin/Globulin Ratio 0.5 (1.0-1.7) Glucose (Fingerstick) 89 mg/dL (70-99) Micro culture neg Objective Assessment Sepsis, ? associated with line,, culture neg Lactic acidosis Fever Rash Transaminitis Lymphadenopathy Leukocytosis, h/o splenectomy h/o infected right TKA s/p I and D, poly exchange, 02/07/2017. Intra-op cultures no growth, had been on abx prior to surgery h/o Enterococcus-PNC sensitive from 02/01, swab cx of wound Diabetes Hep A total antibody positive, Ig M ordered Plan Plan of Care cont antibiotics LN biopsy done HELEN RODARTE MD Mar 07, 2017 08:38
--- NOTE | 2017-03-07 08:46 | PDOC ---
GENERAL General: vss with tmax of 99.5. more alert this am and voices no specific complaints. exam stable. wbc stable at 24K. remains on iv antibiotics. help all consultants appreciated. had lymph node biopsy yesterday. Problems: VITAL SIGNS Vital Signs: Vital Signs Date Time Temp Pulse Resp B/P (MAP) Pulse Ox O2 Delivery O2 Flow Rate FiO2 03/07/17 07:00 97.6 76 18 148/94 (112) 96 Room Air 97.6 03/07/17 02:41 2.0 I & O I & O Intake and Output 03/07/17 07:00 Intake Total 1350 ml Output Total 1400 ml Balance -50 ml Intake Oral 1350 ml Output Urine Total 1400 ml ALLERGIES Allergies: Allergies Coded Allergies Type Severity Reaction Last Updated Verified ibuprofen Allergy Intermediate urinary retention,swelling 02/07/17 Yes MEDS Medications: Current Medications Medications (Trade) Dose Ordered Sig/[place] Start Time Stop Time Status Last Admin Dose Admin Acetaminophen (Tylenol) 500 mg PRN Q4HRS PRN 03/04/17 15:45 03/04/17 20:55 500 MG Alprazolam (Xanax) 0.5 mg PRN Q6HRS PRN 03/03/17 23:30 03/05/17 12:58 0.5 MG Aspirin (Claudy Aspirin) 325 mg DAILY 03/04/17 09:00 03/06/17 10:27 325 MG Dextrose (Dextrose 50%-Water Syringe) 12.5 gm PRN Q15MIN PRN 03/04/17 14:30 Diphenhydramine HCl (Benadryl) 25 mg PRN Q6HRS PRN 03/04/17 14:15 Ferrous Sulfate (Feosol) 325 mg DAILY 03/04/17 09:00 03/06/17 10:27 325 MG Info (Do NOT chart on this entry -- for MONITORING) 1 each PRN DAILY PRN 03/03/17 16:15 03/05/17 16:14 DC Insulin Aspart (NovoLOG) 0-5 UNITS TIDWMEALS 03/04/17 17:00 Iohexol (Omnipaque 350 Mg/ml) 90 ml 1X ONCE 03/03/17 16:00 03/03/17 16:03 DC 03/03/17 16:30 90 ML Lidocaine/Sodium Bicarbonate (Buffered Lidocaine 1%) 20 ml STK-MED ONCE 03/06/17 08:03 03/06/17 08:04 DC Metformin HCl (Glucophage) 500 mg BIDWMEALS 03/06/17 08:00 03/06/17 17:26 500 MG Methadone HCl (Dolophine) 20 mg 1X ONCE 03/04/17 08:30 03/04/17 08:31 DC 03/04/17 08:25 20 MG Micafungin Sodium 100 mg/Dextrose 100 ml @ 100 mls/hr Q24H 03/04/17 12:00 03/05/17 09:00 DC 03/04/17 12:37 100 MLS/HR Morphine Sulfate 4 mg PRN Q2HR PRN 03/03/17 18:00 03/04/17 17:59 DC 03/04/17 05:55 4 MG Non-Formulary Medication 4.5 gm Q8HRS 03/03/17 22:00 UNV Ondansetron HCl (Zofran) 4 mg PRN Q8HRS PRN 03/03/17 18:00 03/04/17 17:59 DC 03/04/17 08:05 4 MG Oxycodone HCl (Roxicodone) 40 mg PRN Q4HRS PRN 03/03/17 22:30 03/05/17 13:16 40 MG Pioglitazone HCl (Actos) 30 mg DAILY 03/04/17 09:00 03/06/17 10:28 30 MG Piperacillin Sod/ Tazobactam Sod 4.5 gm/Sodium Chloride 100 ml @ 200 mls/hr Q8HRS 03/03/17 23:00 03/07/17 05:00 200 MLS/HR Sincalide 2.4 mcg/ Sodium Chloride 30 ml @ 0 mls/hr 1X ONCE 03/05/17 11:15 03/05/17 11:16 DC 03/05/17 11:30 2.4 MLS/HR Sodium Chloride 1,000 ml @ 1,000 mls/hr 1X ONCE 03/03/17 16:30 03/03/17 17:29 DC 03/03/17 16:55 1,000 MLS/HR Vancomycin HCl 1 each 1X ONCE 03/05/17 11:30 03/05/17 11:31 DC Vancomycin HCl (Vanco Per Pharmacy) 1 each PRN DAILY PRN 03/04/17 11:15 03/06/17 12:51 1 EACH Vancomycin HCl 1.75 gm/Sodium Chloride 500 ml @ 250 mls/hr Q8H 03/04/17 20:00 03/07/17 05:01 250 MLS/HR Vancomycin HCl 2 gm/Sodium Chloride 500 ml @ 250 mls/hr 1X ONCE 03/04/17 12:00 03/04/17 13:59 DC 03/04/17 12:28 250 MLS/HR LAB Lab: Laboratory Tests Test 03/06/17 09:33 03/06/17 12:06 03/06/17 16:43 03/06/17 20:58 Glucose (Fingerstick) 81 mg/dL (70-99) 142 mg/dL (70-99) 82 mg/dL (70-99) 100 mg/dL (70-99) Test 03/07/17 05:17 03/07/17 07:17 White Blood Count 23.9 x10^3/uL (4.0-11.0) Red Blood Count 3.95 x10^6/uL (4.30-5.70) Hemoglobin 11.8 g/dL (13.0-17.5) Hematocrit 34.9 % (39.0-53.0) Mean Corpuscular Volume 89 fL (79-100) Mean Corpuscular Hemoglobin 30 pg (25-35) Mean Corpuscular Hemoglobin Concent 34 g/dL (31-37) Red Cell Distribution Width 15.6 % (11.5-14.5) Platelet Count 388 x10^3/uL (140-400) Neutrophils (%) (Auto) 77 % (31-73) Lymphocytes (%) (Auto) 14 % (24-48) Monocytes (%) (Auto) 1 % (0-9) Eosinophils (%) (Auto) 8 % (0-3) Basophils (%) (Auto) 1 % (0-3) Neutrophils # (Auto) 18.4 x10^3uL (1.8-7.7) Lymphocytes # (Auto) 3.3 x10^3/uL (1.0-4.8) Monocytes # (Auto) 0.2 x10^3/uL (0.0-1.1) Eosinophils # (Auto) 1.9 x10^3/uL (0.0-0.7) Basophils # (Auto) 0.1 x10^3/uL (0.0-0.2) Sodium Level 137 mmol/L (136-145) Potassium Level 3.9 mmol/L (3.5-5.1) Chloride Level 97 mmol/L (98-107) Carbon Dioxide Level 31 mmol/L (21-32) Anion Gap 9 (6-14) Blood Urea Nitrogen 13 mg/dL (8-26) Creatinine 0.8 mg/dL (0.7-1.3) Estimated GFR (Cockcroft-Gault) 104.1 BUN/Creatinine Ratio 16 (6-20) Glucose Level 85 mg/dL (70-99) Calcium Level 9.2 mg/dL (8.5-10.1) Total Bilirubin 0.2 mg/dL (0.2-1.0) Aspartate Amino Transf (AST/SGOT) 246 U/L (15-37) Alanine Aminotransferase (ALT/SGPT) 77 U/L (16-63) Alkaline Phosphatase 523 U/L (46-116) Total Protein 7.4 g/dL (6.4-8.2) Albumin 2.4 g/dL (3.4-5.0) Albumin/Globulin Ratio 0.5 (1.0-1.7) Glucose (Fingerstick) 89 mg/dL (70-99) SEAN GUERRA MD Mar 07, 2017 08:46
[2017-03-07] MEDS: ASPIRIN 325 MG TABLET PO SCH (08:47)
[2017-03-07] MEDS: PIOGLITAZONE 15 MG TABLET. PO SCH (08:47)
[2017-03-07] MEDS: metFORMIN 500 MG TABLET PO SCH ×2 (08:47→17:59)
[2017-03-07] MEDS: Canagliflozin (Invokana) 300 MG TABLET PO SCH (08:47)
[2017-03-07] MEDS: FERROUS SULFATE 325 MG TABLET. PO SCH (08:47)
[2017-03-07] MEDS: METHADONE 10 MG TABLET. PO SCH ×4 (08:48→20:45)
[2017-03-07] MEDS: oxyCODONE IR 5 MG TABLET PO PRN ×2 (08:49→21:25)
[2017-03-07] MEDS: VANCOMYCIN PER PHARMACY MC PRN (09:58)
[2017-03-07 11:00] VITALS: BP 118/70
--- NOTE | 2017-03-07 13:13 | PDOC ---
PROGRESS NOTES Subjective Subjective c/c- f/u Generalized lymphadenopathy Objective Objective Vital Signs Date Time Temp Pulse Resp B/P (MAP) Pulse Ox O2 Delivery O2 Flow Rate FiO2 03/07/17 11:00 98.4 65 19 118/70 (86) 92 Room Air 98.4 03/07/17 09:49 2.0 Intake and Output 03/07/17 07:00 Intake Total 1350 ml Output Total 1400 ml Balance -50 ml Intake Oral 1350 ml Output Urine Total 1400 ml Physical Exam Heart: Normal S1, Normal S2 General: Alert, Oriented X3 Lungs: Clear to auscultation Assessment Assessment Problems Medical Problems: (1) Chest pain Status: Acute Assessment/Plan Impression: 1. Generalized lymphadenopathy 2. Neutrophilic leukocytosis 3. Fever 4. Rash 5. Elevated LFTs 6. Recent enterococcal infection of right TKA Plan: I have reviewed his CT scans. Compared to a CT Chest here from 05/2014, there is no significant change in the size of his axillary nodes. Lymphoma certainly is a possibility, - s/p rt inguinal bx by IR 03/06/17 - prelim path report is neg for lymphoma or sarcoidosis. HIV neg. Hep A ab positive. Management per ID. Comment Review of Relevant I have reviewed the following items tod (where applicable) has been applied. Labs Laboratory Tests Test 03/05/17 16:59 03/05/17 20:39 03/06/17 04:40 03/06/17 07:52 Glucose (Fingerstick) 116 mg/dL (70-99) 99 mg/dL (70-99) 80 mg/dL (70-99) White Blood Count 25.7 x10^3/uL (4.0-11.0) Red Blood Count 3.92 x10^6/uL (4.30-5.70) Hemoglobin 11.6 g/dL (13.0-17.5) Hematocrit 34.7 % (39.0-53.0) Mean Corpuscular Volume 88 fL (79-100) Mean Corpuscular Hemoglobin 30 pg (25-35) Mean Corpuscular Hemoglobin Concent 33 g/dL (31-37) Red Cell Distribution Width 15.3 % (11.5-14.5) Platelet Count 327 x10^3/uL (140-400) Neutrophils (%) (Auto) 82 % (31-73) Lymphocytes (%) (Auto) 10 % (24-48) Monocytes (%) (Auto) 4 % (0-9) Eosinophils (%) (Auto) 3 % (0-3) Basophils (%) (Auto) 1 % (0-3) Neutrophils # (Auto) 21.1 x10^3uL (1.8-7.7) Lymphocytes # (Auto) 2.6 x10^3/uL (1.0-4.8) Monocytes # (Auto) 1.1 x10^3/uL (0.0-1.1) Eosinophils # (Auto) 0.7 x10^3/uL (0.0-0.7) Basophils # (Auto) 0.2 x10^3/uL (0.0-0.2) Sodium Level 137 mmol/L (136-145) Potassium Level 5.2 mmol/L (3.5-5.1) Chloride Level 98 mmol/L (98-107) Carbon Dioxide Level 30 mmol/L (21-32) Anion Gap 9 (6-14) Blood Urea Nitrogen 15 mg/dL (8-26) Creatinine 0.9 mg/dL (0.7-1.3) Estimated GFR (Cockcroft-Gault) 90.8 BUN/Creatinine Ratio 17 (6-20) Glucose Level 90 mg/dL (70-99) Calcium Level 8.9 mg/dL (8.5-10.1) Total Bilirubin 0.6 mg/dL (0.2-1.0) Aspartate Amino Transf (AST/SGOT) 288 U/L (15-37) Alanine Aminotransferase (ALT/SGPT) 81 U/L (16-63) Alkaline Phosphatase 478 U/L (46-116) Total Protein 7.5 g/dL (6.4-8.2) Albumin 2.3 g/dL (3.4-5.0) Albumin/Globulin Ratio 0.4 (1.0-1.7) Test 03/06/17 09:33 03/06/17 12:06 03/06/17 16:43 03/06/17 20:58 Glucose (Fingerstick) 81 mg/dL (70-99) 142 mg/dL (70-99) 82 mg/dL (70-99) 100 mg/dL (70-99) Test 03/07/17 05:17 03/07/17 07:17 White Blood Count 23.9 x10^3/uL (4.0-11.0) Red Blood Count 3.95 x10^6/uL (4.30-5.70) Hemoglobin 11.8 g/dL (13.0-17.5) Hematocrit 34.9 % (39.0-53.0) Mean Corpuscular Volume 89 fL (79-100) Mean Corpuscular Hemoglobin 30 pg (25-35) Mean Corpuscular Hemoglobin Concent 34 g/dL (31-37) Red Cell Distribution Width 15.6 % (11.5-14.5) Platelet Count 388 x10^3/uL (140-400) Neutrophils (%) (Auto) 77 % (31-73) Lymphocytes (%) (Auto) 14 % (24-48) Monocytes (%) (Auto) 1 % (0-9) Eosinophils (%) (Auto) 8 % (0-3) Basophils (%) (Auto) 1 % (0-3) Neutrophils # (Auto) 18.4 x10^3uL (1.8-7.7) Lymphocytes # (Auto) 3.3 x10^3/uL (1.0-4.8) Monocytes # (Auto) 0.2 x10^3/uL (0.0-1.1) Eosinophils # (Auto) 1.9 x10^3/uL (0.0-0.7) Basophils # (Auto) 0.1 x10^3/uL (0.0-0.2) Sodium Level 137 mmol/L (136-145) Potassium Level 3.9 mmol/L (3.5-5.1) Chloride Level 97 mmol/L (98-107) Carbon Dioxide Level 31 mmol/L (21-32) Anion Gap 9 (6-14) Blood Urea Nitrogen 13 mg/dL (8-26) Creatinine 0.8 mg/dL (0.7-1.3) Estimated GFR (Cockcroft-Gault) 104.1 BUN/Creatinine Ratio 16 (6-20) Glucose Level 85 mg/dL (70-99) Calcium Level 9.2 mg/dL (8.5-10.1) Total Bilirubin 0.2 mg/dL (0.2-1.0) Aspartate Amino Transf (AST/SGOT) 246 U/L (15-37) Alanine Aminotransferase (ALT/SGPT) 77 U/L (16-63) Alkaline Phosphatase 523 U/L (46-116) Total Protein 7.4 g/dL (6.4-8.2) Albumin 2.4 g/dL (3.4-5.0) Albumin/Globulin Ratio 0.5 (1.0-1.7) Glucose (Fingerstick) 89 mg/dL (70-99) Laboratory Tests Test 03/06/17 16:43 03/06/17 20:58 03/07/17 05:17 03/07/17 07:17 Glucose (Fingerstick) 82 mg/dL (70-99) 100 mg/dL (70-99) 89 mg/dL (70-99) White Blood Count 23.9 x10^3/uL (4.0-11.0) Red Blood Count 3.95 x10^6/uL (4.30-5.70) Hemoglobin 11.8 g/dL (13.0-17.5) Hematocrit 34.9 % (39.0-53.0) Mean Corpuscular Volume 89 fL (79-100) Mean Corpuscular Hemoglobin 30 pg (25-35) Mean Corpuscular Hemoglobin Concent 34 g/dL (31-37) Red Cell Distribution Width 15.6 % (11.5-14.5) Platelet Count 388 x10^3/uL (140-400) Neutrophils (%) (Auto) 77 % (31-73) Lymphocytes (%) (Auto) 14 % (24-48) Monocytes (%) (Auto) 1 % (0-9) Eosinophils (%) (Auto) 8 % (0-3) Basophils (%) (Auto) 1 % (0-3) Neutrophils # (Auto) 18.4 x10^3uL (1.8-7.7) Lymphocytes # (Auto) 3.3 x10^3/uL (1.0-4.8) Monocytes # (Auto) 0.2 x10^3/uL (0.0-1.1) Eosinophils # (Auto) 1.9 x10^3/uL (0.0-0.7) Basophils # (Auto) 0.1 x10^3/uL (0.0-0.2) Sodium Level 137 mmol/L (136-145) Potassium Level 3.9 mmol/L (3.5-5.1) Chloride Level 97 mmol/L (98-107) Carbon Dioxide Level 31 mmol/L (21-32) Anion Gap 9 (6-14) Blood Urea Nitrogen 13 mg/dL (8-26) Creatinine 0.8 mg/dL (0.7-1.3) Estimated GFR (Cockcroft-Gault) 104.1 BUN/Creatinine Ratio 16 (6-20) Glucose Level 85 mg/dL (70-99) Calcium Level 9.2 mg/dL (8.5-10.1) Total Bilirubin 0.2 mg/dL (0.2-1.0) Aspartate Amino Transf (AST/SGOT) 246 U/L (15-37) Alanine Aminotransferase (ALT/SGPT) 77 U/L (16-63) Alkaline Phosphatase 523 U/L (46-116) Total Protein 7.4 g/dL (6.4-8.2) Albumin 2.4 g/dL (3.4-5.0) Albumin/Globulin Ratio 0.5 (1.0-1.7) Microbiology 03/03/17 Blood Culture - Preliminary, Resulted NO GROWTH AFTER 3 DAYS Medications Current Medications Morphine Sulfate 4 mg PRN Q15MIN PRN IV/SQ PAIN GREATER THAN 3/10 Last administered on 03/03/17 17:00; Start 03/03/17 at 15:00; Stop 03/04/17 at 14:59 ; Status DC Ondansetron HCl (Zofran) 4 mg 1X ONCE IV Last administered on 03/03/17 15:20 ; Start 03/03/17 at 15:00; Stop 03/03/17 at 15:01; Status DC Sodium Chloride 1,000 ml @ 1,000 mls/hr 1X ONCE IV Last administered on 15:20; Start 03/03/17 at 15:30; Stop 03/03/17 at 16:29; Status DC Iohexol (Omnipaque 350 Mg/ml) 90 ml 1X ONCE IV Last administered on 03/03/17 16:30; Start 03/03/17 at 16:00; Stop 03/03/17 at 16:03; Status DC Info (Do NOT chart on this entry -- for MONITORING) 1 each PRN DAILY PRN MC SEE COMMENTS; Start 03/03/17 at 16:15; Stop 03/05/17 at 16:14; Status DC Sodium Chloride 1,000 ml @ 1,000 mls/hr 1X ONCE IV Last administered on 16:55; Start 03/03/17 at 16:30; Stop 03/03/17 at 17:29; Status DC Ondansetron HCl (Zofran) 4 mg PRN Q8HRS PRN IV NAUSEA/VOMITING Last administered on 03/04/17 08:05; Start 03/03/17 at 18:00; Stop 03/04/17 at 17:59 ; Status DC Morphine Sulfate 4 mg PRN Q2HR PRN IV PAIN Last administered on 03/04/17 05:55 ; Start 03/03/17 at 18:00; Stop 03/04/17 at 17:59; Status DC Aspirin (Claudy Aspirin) 325 mg DAILY PO Last administered on 03/07/17 08:47; Start 03/04/17 at 09:00 Ferrous Sulfate (Feosol) 325 mg DAILY PO Last administered on 03/07/17 08:47; Start 03/04/17 at 09:00 Metformin HCl (Glucophage) 500 mg BIDWMEALS PO Last administered on 03/07/17 08:47; Start 03/06/17 at 08:00 Methadone HCl (Dolophine) 20 mg QID PO Last administered on 03/07/17 12:45; Start 03/04/17 at 09:00 Pioglitazone HCl (Actos) 30 mg DAILY PO Last administered on 03/07/17 08:47; Start 03/04/17 at 09:00 Non-Formulary Medication 300 mg DAILY PO Last administered on 03/07/17 08:47; Start 03/04/17 at 09:00 Oxycodone HCl (Roxicodone) 40 mg PRN Q4HRS PRN PO SEVERE PAIN Last administered on 03/07/17 08:49; Start 03/03/17 at 22:30 Non-Formulary Medication 4.5 gm Q8HRS IV ; Start 03/03/17 at 22:00; Status UNV Piperacillin Sod/ Tazobactam Sod 4.5 gm/Sodium Chloride 100 ml @ 200 mls/hr Q8HRS IV Last administered on 03/07/17 05:00; Start 03/03/17 at 23:00 Alprazolam (Xanax) 0.5 mg PRN Q6HRS PRN PO ANXIETY / AGITATION Last administered on 03/05/17 12:58; Start 03/03/17 at 23:30 Methadone HCl (Dolophine) 20 mg 1X ONCE PO Last administered on 03/04/17 00: 00; Start 03/04/17 at 00:00; Stop 03/04/17 at 00:01; Status DC Methadone HCl (Dolophine) 20 mg 1X ONCE PO Last administered on 03/04/17 08: 25; Start 03/04/17 at 08:30; Stop 03/04/17 at 08:31; Status DC Micafungin Sodium 100 mg/Dextrose 100 ml @ 100 mls/hr Q24H IV Last administered on 03/04/17 12:37; Start 03/04/17 at 12:00; Stop 03/05/17 at 09:00 ; Status DC Vancomycin HCl (Vanco Per Pharmacy) 1 each PRN DAILY PRN MC SEE COMMENTS Last administered on 03/07/17 09:58; Start 03/04/17 at 11:15 Vancomycin HCl 2 gm/Sodium Chloride 500 ml @ 250 mls/hr 1X ONCE IV Last administered on 03/04/17 12:28; Start 03/04/17 at 12:00; Stop 03/04/17 at 13:59 ; Status DC Vancomycin HCl 1.75 gm/Sodium Chloride 500 ml @ 250 mls/hr Q8H IV Last administered on 03/07/17 12:45; Start 03/04/17 at 20:00 Vancomycin HCl 1 each 1X ONCE MC ; Start 03/05/17 at 11:30; Stop 03/05/17 at 11 :31; Status DC Diphenhydramine HCl (Benadryl) 25 mg PRN Q6HRS PRN IVP ITCHING; Start 03/04/17 at 14:15 Insulin Aspart (NovoLOG) 0-5 UNITS TIDWMEALS SQ ; Start 03/04/17 at 17:00 Dextrose (Dextrose 50%-Water Syringe) 12.5 gm PRN Q15MIN PRN IV SEE COMMENTS; Start 03/04/17 at 14:30 Acetaminophen (Tylenol) 500 mg PRN Q4HRS PRN PO MILD PAIN / TEMP Last administered on 03/04/17 20:55; Start 03/04/17 at 15:45 Sincalide 2.4 mcg/ Sodium Chloride 30 ml @ 0 mls/hr 1X ONCE IV Last administered on 03/05/17 11:30; Start 03/05/17 at 11:15; Stop 03/05/17 at 11:16 ; Status DC Lidocaine/Sodium Bicarbonate (Buffered Lidocaine 1%) 20 ml STK-MED ONCE IJ ; Start 03/06/17 at 08:03; Stop 03/06/17 at 08:04; Status DC Active Scripts Active Reported Zosyn 4.5 Gm Pre-Mix Bag (Tmqunciapkfu-Fbjj-Grflvcak,Iso) 4.5 Gm/100 Ml Froz.piggy 4.5 Gm IV Q8HRS Aspirin 325 Mg Tablet 1 Tab PO DAILY Celebrex (Celecoxib) 200 Mg Capsule 1 Cap PO DAILY Oxycodone Hcl 20 Mg Tablet 40 Mg PO PRN Q4-6HRS PRN Ferrous Sulfate 325 Mg Tablet 1 Tab PO DAILY Invokana (Canagliflozin) 300 Mg Tablet 300 Mg PO DAILY Actos (Pioglitazone Hcl) 15 Mg Tablet 30 Mg PO DAILY Metformin Hcl 500 Mg Tablet 500 Mg PO BIDWMEALS Methadone Hcl 5 Mg Tablet 20 Mg PO QID Vitals/I & O Vital Sign - Last 24 Hours 03/06/17 03/06/17 03/06/17 03/06/17 15:00 19:14 20:00 22:14 Temp 98.5 99.5 99.0 98.5 99.5 99.0 Pulse 78 85 69 Resp 18 18 18 B/P (MAP) 142/79 (100) 152/90 (110) 141/79 (99) Pulse Ox 94 94 O2 Delivery Room Air Nasal Cannula Nasal Cannula Nasal Cannula O2 Flow Rate 2.0 2.0 2.0 03/07/17 03/07/17 03/07/17 03/07/17 02:41 07:00 08:05 08:49 Temp 97.6 97.6 Pulse 60 76 Resp 22 18 14 B/P (MAP) 159/95 (116) 148/94 (112) Pulse Ox 96 96 96 O2 Delivery Nasal Cannula Room Air Nasal Cannula Nasal Cannula O2 Flow Rate 2.0 2.0 2.0 03/07/17 03/07/17 09:49 11:00 Temp 98.4 98.4 Pulse 65 Resp 16 19 B/P (MAP) 118/70 (86) Pulse Ox 96 92 O2 Delivery Nasal Cannula Room Air O2 Flow Rate 2.0 Intake and Output 03/06/17 03/06/17 03/07/17 15:00 23:00 07:00 Intake Total 950 ml 400 ml Output Total 1400 ml Balance 950 ml -1000 ml JOHN VALENCIA MD Mar 07, 2017 13:13
[2017-03-07 15:00] VITALS: BP 145/88
[2017-03-07 19:10] VITALS: BP 149/83
[2017-03-07] MEDS: ALPRAZolam 0.5 MG TABLET PO PRN (21:22)
[2017-03-07 23:10] VITALS: BP 144/93
[2017-03-08] VITALS (7 sets, daily range): BP systolic 143–184; BP diastolic 81–94
[2017-03-08] MEDS: PIPERACILLIN/TAZOBACTAM 4.5 GM in IV NORMAL SALINE 100ML 100 ML IV SCH ×3 (04:58→21:41)
[2017-03-08] MEDS: VANCOMYCIN 1.75 GM in IV NORMAL SALINE 500ML BAG 500 ML IV SCH (04:58)
[2017-03-08 05:26] LABS: BASO # 0.2 x10^3/uL (0.0-0.2); BASO % 1 % (0-3); EOS % 14 % (0-3); HEMATOCRIT 30.4 % (39.0-53.0); HEMOGLOBIN 10.1 g/dL (13.0-17.5); LYMPH # 3.1 x10^3/uL (1.0-4.8); LYMPH % 14 % (24-48); MEAN CORPUSCULAR HEMOGLOBIN 30 pg (25-35); MEAN CORPUSCULAR HGB CONC 33 g/dL (31-37); MEAN CORPUSCULAR VOLUME 89 fL (79-100); MONO % 6 % (0-9); NEUT % 66 % (31-73); PLATELET COUNT 324 x10^3/uL (140-400); RED BLOOD COUNT 3.42 x10^6/uL (4.30-5.70); RED CELL DISTRIBUTION WIDTH 15.2 % (11.5-14.5); WHITE BLOOD COUNT 22.7 x10^3/uL (4.0-11.0)
[2017-03-08 05:49] LABS: CALCIUM 9.1 mg/dL (8.5-10.1); CREATININE 0.9 mg/dL (0.7-1.3); GFR 90.8; POTASSIUM 3.4 mmol/L (3.5-5.1)
[2017-03-08] MEDS: INSULIN ASPART 300 UNITS/3 ML INSULN.PEN SQ SCH ×3 (08:00→17:00)
--- NOTE | 2017-03-08 08:20 | PDOC ---
Infectious Disease Note Subjective Subjective pt feeling better ROS ROS GEN: Denies fevers, chills, sweats HEENT: Denies blurred vision, sore throat CV: Denies chest pain RESP: Denies shortness of air, cough GI: Denies n/v/d NEURO: Denies confusion, dizziness MSK: Denies weakness, joint pain/swelling Vital Sign Vital Signs Vital Signs Date Time Temp Pulse Resp B/P (MAP) Pulse Ox O2 Delivery O2 Flow Rate FiO2 03/08/17 07:16 Nasal Cannula 2.0 03/08/17 07:00 98.2 55 16 158/82 (107) 97 98.2 Physical Exam PHYSICAL EXAM GENERAL: NAD, Alert HEENT: PERRL, OC/OP NECK: Supple, no JVD, no LN LUNGS: Clear HEART: S1S2, no gallop, no murmur ABD: Soft, NT, no organomegaly, no rebound EXT: No edema, no cyanosis [employer]: Alert, oriented x 3, no focal neurologic deficit SKIN: No rash IV: ok Labs Lab Laboratory Tests Test 03/07/17 11:01 03/07/17 16:25 03/07/17 20:47 03/08/17 05:00 Glucose (Fingerstick) 131 mg/dL (70-99) 108 mg/dL (70-99) 96 mg/dL (70-99) White Blood Count 22.7 x10^3/uL (4.0-11.0) Red Blood Count 3.42 x10^6/uL (4.30-5.70) Hemoglobin 10.1 g/dL (13.0-17.5) Hematocrit 30.4 % (39.0-53.0) Mean Corpuscular Volume 89 fL (79-100) Mean Corpuscular Hemoglobin 30 pg (25-35) Mean Corpuscular Hemoglobin Concent 33 g/dL (31-37) Red Cell Distribution Width 15.2 % (11.5-14.5) Platelet Count 324 x10^3/uL (140-400) Neutrophils (%) (Auto) 66 % (31-73) Lymphocytes (%) (Auto) 14 % (24-48) Monocytes (%) (Auto) 6 % (0-9) Eosinophils (%) (Auto) 14 % (0-3) Basophils (%) (Auto) 1 % (0-3) Neutrophils # (Auto) 15.0 x10^3uL (1.8-7.7) Lymphocytes # (Auto) 3.1 x10^3/uL (1.0-4.8) Monocytes # (Auto) 1.3 x10^3/uL (0.0-1.1) Eosinophils # (Auto) 3.1 x10^3/uL (0.0-0.7) Basophils # (Auto) 0.2 x10^3/uL (0.0-0.2) Sodium Level 137 mmol/L (136-145) Potassium Level 3.4 mmol/L (3.5-5.1) Chloride Level 99 mmol/L (98-107) Carbon Dioxide Level 32 mmol/L (21-32) Anion Gap 6 (6-14) Blood Urea Nitrogen 12 mg/dL (8-26) Creatinine 0.9 mg/dL (0.7-1.3) Estimated GFR (Cockcroft-Gault) 90.8 Glucose Level 97 mg/dL (70-99) Calcium Level 9.1 mg/dL (8.5-10.1) Micro culture neg Objective Assessment Sepsis, ? associated with line,, culture neg Lactic acidosis Fever Rash Transaminitis Lymphadenopathy Leukocytosis, h/o splenectomy h/o infected right TKA s/p I and D, poly exchange, 02/07/2017. 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
--- NOTE | 2017-03-08 08:34 | PDOC ---
GENERAL General: vss and afebrile. wbc 22K. exam stable. less alert for me again this am. continue present and await biopsy results. Problems: VITAL SIGNS Vital Signs: Vital Signs Date Time Temp Pulse Resp B/P (MAP) Pulse Ox O2 Delivery O2 Flow Rate FiO2 03/08/17 07:16 Nasal Cannula 2.0 03/08/17 07:00 98.2 55 16 158/82 (107) 97 98.2 I & O I & O Intake and Output 03/08/17 06:59 Intake Total 2036 ml Balance 2036 ml Intake Oral 2036 ml # Voids 7 ALLERGIES Allergies: Allergies Coded Allergies Type Severity Reaction Last Updated Verified ibuprofen Allergy Intermediate urinary retention,swelling 02/07/17 Yes MEDS Medications: Current Medications Medications (Trade) Dose Ordered Sig/[place] Start Time Stop Time Status Last Admin Dose Admin Acetaminophen (Tylenol) 500 mg PRN Q4HRS PRN 03/04/17 15:45 03/04/17 20:55 500 MG Alprazolam (Xanax) 0.5 mg PRN Q6HRS PRN 03/03/17 23:30 03/07/17 21:22 0.5 MG Aspirin (Claudy Aspirin) 325 mg DAILY 03/04/17 09:00 03/07/17 08:47 325 MG Dextrose (Dextrose 50%-Water Syringe) 12.5 gm PRN Q15MIN PRN 03/04/17 14:30 Diphenhydramine HCl (Benadryl) 25 mg PRN Q6HRS PRN 03/04/17 14:15 Ferrous Sulfate (Feosol) 325 mg DAILY 03/04/17 09:00 03/07/17 08:47 325 MG Info (Do NOT chart on this entry -- for MONITORING) 1 each PRN DAILY PRN 03/03/17 16:15 03/05/17 16:14 DC Insulin Aspart (NovoLOG) 0-5 UNITS TIDWMEALS 03/04/17 17:00 Iohexol (Omnipaque 350 Mg/ml) 90 ml 1X ONCE 03/03/17 16:00 03/03/17 16:03 DC 03/03/17 16:30 90 ML Lidocaine/Sodium Bicarbonate (Buffered Lidocaine 1%) 20 ml STK-MED ONCE 03/06/17 08:03 03/06/17 08:04 DC Metformin HCl (Glucophage) 500 mg BIDWMEALS 03/06/17 08:00 03/07/17 17:59 500 MG Methadone HCl (Dolophine) 20 mg 1X ONCE 03/04/17 08:30 03/04/17 08:31 DC 03/04/17 08:25 20 MG Micafungin Sodium 100 mg/Dextrose 100 ml @ 100 mls/hr Q24H 03/04/17 12:00 03/05/17 09:00 DC 03/04/17 12:37 100 MLS/HR Morphine Sulfate 4 mg PRN Q2HR PRN 03/03/17 18:00 03/04/17 17:59 DC 03/04/17 05:55 4 MG Non-Formulary Medication 4.5 gm Q8HRS 03/03/17 22:00 UNV Ondansetron HCl (Zofran) 4 mg PRN Q8HRS PRN 03/03/17 18:00 03/04/17 17:59 DC 03/04/17 08:05 4 MG Oxycodone HCl (Roxicodone) 40 mg PRN Q4HRS PRN 03/03/17 22:30 03/07/17 21:25 40 MG Pioglitazone HCl (Actos) 30 mg DAILY 03/04/17 09:00 03/07/17 08:47 30 MG Piperacillin Sod/ Tazobactam Sod 4.5 gm/Sodium Chloride 100 ml @ 200 mls/hr Q8HRS 03/03/17 23:00 03/08/17 04:58 200 MLS/HR Sincalide 2.4 mcg/ Sodium Chloride 30 ml @ 0 mls/hr 1X ONCE 03/05/17 11:15 03/05/17 11:16 DC 03/05/17 11:30 2.4 MLS/HR Sodium Chloride 1,000 ml @ 1,000 mls/hr 1X ONCE 03/03/17 16:30 03/03/17 17:29 DC 03/03/17 16:55 1,000 MLS/HR Vancomycin HCl 1 each 1X ONCE 03/05/17 11:30 03/05/17 11:31 DC Vancomycin HCl (Vanco Per Pharmacy) 1 each PRN DAILY PRN 03/04/17 11:15 03/08/17 08:06 DC 03/07/17 09:58 1 EACH Vancomycin HCl 1.75 gm/Sodium Chloride 500 ml @ 250 mls/hr Q8H 03/04/17 20:00 03/08/17 08:06 DC 03/08/17 04:58 250 MLS/HR Vancomycin HCl 2 gm/Sodium Chloride 500 ml @ 250 mls/hr 1X ONCE 03/04/17 12:00 03/04/17 13:59 DC 03/04/17 12:28 250 MLS/HR LAB Lab: Laboratory Tests Test 03/07/17 11:01 03/07/17 16:25 03/07/17 20:47 03/08/17 05:00 Glucose (Fingerstick) 131 mg/dL (70-99) 108 mg/dL (70-99) 96 mg/dL (70-99) White Blood Count 22.7 x10^3/uL (4.0-11.0) Red Blood Count 3.42 x10^6/uL (4.30-5.70) Hemoglobin 10.1 g/dL (13.0-17.5) Hematocrit 30.4 % (39.0-53.0) Mean Corpuscular Volume 89 fL (79-100) Mean Corpuscular Hemoglobin 30 pg (25-35) Mean Corpuscular Hemoglobin Concent 33 g/dL (31-37) Red Cell Distribution Width 15.2 % (11.5-14.5) Platelet Count 324 x10^3/uL (140-400) Neutrophils (%) (Auto) 66 % (31-73) Lymphocytes (%) (Auto) 14 % (24-48) Monocytes (%) (Auto) 6 % (0-9) Eosinophils (%) (Auto) 14 % (0-3) Basophils (%) (Auto) 1 % (0-3) Neutrophils # (Auto) 15.0 x10^3uL (1.8-7.7) Lymphocytes # (Auto) 3.1 x10^3/uL (1.0-4.8) Monocytes # (Auto) 1.3 x10^3/uL (0.0-1.1) Eosinophils # (Auto) 3.1 x10^3/uL (0.0-0.7) Basophils # (Auto) 0.2 x10^3/uL (0.0-0.2) Sodium Level 137 mmol/L (136-145) Potassium Level 3.4 mmol/L (3.5-5.1) Chloride Level 99 mmol/L (98-107) Carbon Dioxide Level 32 mmol/L (21-32) Anion Gap 6 (6-14) Blood Urea Nitrogen 12 mg/dL (8-26) Creatinine 0.9 mg/dL (0.7-1.3) Estimated GFR (Cockcroft-Gault) 90.8 Glucose Level 97 mg/dL (70-99) Calcium Level 9.1 mg/dL (8.5-10.1) SEAN GUERRA MD Mar 08, 2017 08:34
--- NOTE | 2017-03-08 08:52 | PDOC ---
PROGRESS NOTES Subjective Subjective c/c - f/u of Generalized lymphadenopathy Objective Objective Vital Signs Date Time Temp Pulse Resp B/P (MAP) Pulse Ox O2 Delivery O2 Flow Rate FiO2 03/08/17 07:16 Nasal Cannula 2.0 03/08/17 07:00 98.2 55 16 158/82 (107) 97 98.2 Intake and Output 03/08/17 07:00 Intake Total 2036 ml Balance 2036 ml Intake Oral 2036 ml # Voids 7 Physical Exam Heart: Normal S1, Normal S2 Lungs: Clear to auscultation Assessment Assessment Problems Medical Problems: (1) Chest pain Status: Acute Assessment/Plan Impression: 1. Generalized lymphadenopathy 2. Neutrophilic leukocytosis 3. Fever 4. Rash 5. Elevated LFTs 6. Recent enterococcal infection of right TKA Plan: I have reviewed his CT scans. Compared to a CT Chest here from 05/2014, there is no significant change in the size of his axillary nodes. Lymphoma certainly is a possibility, hence bx done. - s/p rt inguinal bx by IR 03/06/17 - prelim path report is neg for lymphoma or sarcoidosis. Flow cytometry pending, I d/w DR Payton. HIV neg. Hep A ab positive. Management per ID. I d/w Dr Lazarus Adams. Comment Review of Relevant I have reviewed the following items tod (where applicable) has been applied. Labs Laboratory Tests Test 03/06/17 09:33 03/06/17 12:06 03/06/17 16:43 03/06/17 20:58 Glucose (Fingerstick) 81 mg/dL (70-99) 142 mg/dL (70-99) 82 mg/dL (70-99) 100 mg/dL (70-99) Test 03/07/17 05:17 03/07/17 07:17 03/07/17 11:01 03/07/17 16:25 White Blood Count 23.9 x10^3/uL (4.0-11.0) Red Blood Count 3.95 x10^6/uL (4.30-5.70) Hemoglobin 11.8 g/dL (13.0-17.5) Hematocrit 34.9 % (39.0-53.0) Mean Corpuscular Volume 89 fL (79-100) Mean Corpuscular Hemoglobin 30 pg (25-35) Mean Corpuscular Hemoglobin Concent 34 g/dL (31-37) Red Cell Distribution Width 15.6 % (11.5-14.5) Platelet Count 388 x10^3/uL (140-400) Neutrophils (%) (Auto) 77 % (31-73) Lymphocytes (%) (Auto) 14 % (24-48) Monocytes (%) (Auto) 1 % (0-9) Eosinophils (%) (Auto) 8 % (0-3) Basophils (%) (Auto) 1 % (0-3) Neutrophils # (Auto) 18.4 x10^3uL (1.8-7.7) Lymphocytes # (Auto) 3.3 x10^3/uL (1.0-4.8) Monocytes # (Auto) 0.2 x10^3/uL (0.0-1.1) Eosinophils # (Auto) 1.9 x10^3/uL (0.0-0.7) Basophils # (Auto) 0.1 x10^3/uL (0.0-0.2) Sodium Level 137 mmol/L (136-145) Potassium Level 3.9 mmol/L (3.5-5.1) Chloride Level 97 mmol/L (98-107) Carbon Dioxide Level 31 mmol/L (21-32) Anion Gap 9 (6-14) Blood Urea Nitrogen 13 mg/dL (8-26) Creatinine 0.8 mg/dL (0.7-1.3) Estimated GFR (Cockcroft-Gault) 104.1 BUN/Creatinine Ratio 16 (6-20) Glucose Level 85 mg/dL (70-99) Calcium Level 9.2 mg/dL (8.5-10.1) Total Bilirubin 0.2 mg/dL (0.2-1.0) Aspartate Amino Transf (AST/SGOT) 246 U/L (15-37) Alanine Aminotransferase (ALT/SGPT) 77 U/L (16-63) Alkaline Phosphatase 523 U/L (46-116) Total Protein 7.4 g/dL (6.4-8.2) Albumin 2.4 g/dL (3.4-5.0) Albumin/Globulin Ratio 0.5 (1.0-1.7) Hepatitis A IgM Antibody Negative (Negative) Glucose (Fingerstick) 89 mg/dL (70-99) 131 mg/dL (70-99) 108 mg/dL (70-99) Test 03/07/17 20:47 03/08/17 05:00 Glucose (Fingerstick) 96 mg/dL (70-99) White Blood Count 22.7 x10^3/uL (4.0-11.0) Red Blood Count 3.42 x10^6/uL (4.30-5.70) Hemoglobin 10.1 g/dL (13.0-17.5) Hematocrit 30.4 % (39.0-53.0) Mean Corpuscular Volume 89 fL (79-100) Mean Corpuscular Hemoglobin 30 pg (25-35) Mean Corpuscular Hemoglobin Concent 33 g/dL (31-37) Red Cell Distribution Width 15.2 % (11.5-14.5) Platelet Count 324 x10^3/uL (140-400) Neutrophils (%) (Auto) 66 % (31-73) Lymphocytes (%) (Auto) 14 % (24-48) Monocytes (%) (Auto) 6 % (0-9) Eosinophils (%) (Auto) 14 % (0-3) Basophils (%) (Auto) 1 % (0-3) Neutrophils # (Auto) 15.0 x10^3uL (1.8-7.7) Lymphocytes # (Auto) 3.1 x10^3/uL (1.0-4.8) Monocytes # (Auto) 1.3 x10^3/uL (0.0-1.1) Eosinophils # (Auto) 3.1 x10^3/uL (0.0-0.7) Basophils # (Auto) 0.2 x10^3/uL (0.0-0.2) Sodium Level 137 mmol/L (136-145) Potassium Level 3.4 mmol/L (3.5-5.1) Chloride Level 99 mmol/L (98-107) Carbon Dioxide Level 32 mmol/L (21-32) Anion Gap 6 (6-14) Blood Urea Nitrogen 12 mg/dL (8-26) Creatinine 0.9 mg/dL (0.7-1.3) Estimated GFR (Cockcroft-Gault) 90.8 Glucose Level 97 mg/dL (70-99) Calcium Level 9.1 mg/dL (8.5-10.1) Laboratory Tests Test 03/07/17 11:01 03/07/17 16:25 03/07/17 20:47 03/08/17 05:00 Glucose (Fingerstick) 131 mg/dL (70-99) 108 mg/dL (70-99) 96 mg/dL (70-99) White Blood Count 22.7 x10^3/uL (4.0-11.0) Red Blood Count 3.42 x10^6/uL (4.30-5.70) Hemoglobin 10.1 g/dL (13.0-17.5) Hematocrit 30.4 % (39.0-53.0) Mean Corpuscular Volume 89 fL (79-100) Mean Corpuscular Hemoglobin 30 pg (25-35) Mean Corpuscular Hemoglobin Concent 33 g/dL (31-37) Red Cell Distribution Width 15.2 % (11.5-14.5) Platelet Count 324 x10^3/uL (140-400) Neutrophils (%) (Auto) 66 % (31-73) Lymphocytes (%) (Auto) 14 % (24-48) Monocytes (%) (Auto) 6 % (0-9) Eosinophils (%) (Auto) 14 % (0-3) Basophils (%) (Auto) 1 % (0-3) Neutrophils # (Auto) 15.0 x10^3uL (1.8-7.7) Lymphocytes # (Auto) 3.1 x10^3/uL (1.0-4.8) Monocytes # (Auto) 1.3 x10^3/uL (0.0-1.1) Eosinophils # (Auto) 3.1 x10^3/uL (0.0-0.7) Basophils # (Auto) 0.2 x10^3/uL (0.0-0.2) Sodium Level 137 mmol/L (136-145) Potassium Level 3.4 mmol/L (3.5-5.1) Chloride Level 99 mmol/L (98-107) Carbon Dioxide Level 32 mmol/L (21-32) Anion Gap 6 (6-14) Blood Urea Nitrogen 12 mg/dL (8-26) Creatinine 0.9 mg/dL (0.7-1.3) Estimated GFR (Cockcroft-Gault) 90.8 Glucose Level 97 mg/dL (70-99) Calcium Level 9.1 mg/dL (8.5-10.1) Microbiology 03/03/17 Blood Culture - Preliminary, Resulted NO GROWTH AFTER 4 DAYS Medications Current Medications Morphine Sulfate 4 mg PRN Q15MIN PRN IV/SQ PAIN GREATER THAN 3/10 Last administered on 03/03/17 17:00; Start 03/03/17 at 15:00; Stop 03/04/17 at 14:59 ; Status DC Ondansetron HCl (Zofran) 4 mg 1X ONCE IV Last administered on 03/03/17 15:20 ; Start 03/03/17 at 15:00; Stop 03/03/17 at 15:01; Status DC Sodium Chloride 1,000 ml @ 1,000 mls/hr 1X ONCE IV Last administered on 15:20; Start 03/03/17 at 15:30; Stop 03/03/17 at 16:29; Status DC Iohexol (Omnipaque 350 Mg/ml) 90 ml 1X ONCE IV Last administered on 03/03/17 16:30; Start 03/03/17 at 16:00; Stop 03/03/17 at 16:03; Status DC Info (Do NOT chart on this entry -- for MONITORING) 1 each PRN DAILY PRN MC SEE COMMENTS; Start 03/03/17 at 16:15; Stop 03/05/17 at 16:14; Status DC Sodium Chloride 1,000 ml @ 1,000 mls/hr 1X ONCE IV Last administered on 16:55; Start 03/03/17 at 16:30; Stop 03/03/17 at 17:29; Status DC Ondansetron HCl (Zofran) 4 mg PRN Q8HRS PRN IV NAUSEA/VOMITING Last administered on 03/04/17 08:05; Start 03/03/17 at 18:00; Stop 03/04/17 at 17:59 ; Status DC Morphine Sulfate 4 mg PRN Q2HR PRN IV PAIN Last administered on 03/04/17 05:55 ; Start 03/03/17 at 18:00; Stop 03/04/17 at 17:59; Status DC Aspirin (Claudy Aspirin) 325 mg DAILY PO Last administered on 03/07/17 08:47; Start 03/04/17 at 09:00 Ferrous Sulfate (Feosol) 325 mg DAILY PO Last administered on 03/07/17 08:47; Start 03/04/17 at 09:00 Metformin HCl (Glucophage) 500 mg BIDWMEALS PO Last administered on 03/07/17 17:59; Start 03/06/17 at 08:00 Methadone HCl (Dolophine) 20 mg QID PO Last administered on 03/07/17 18:00; Start 03/04/17 at 09:00 Pioglitazone HCl (Actos) 30 mg DAILY PO Last administered on 03/07/17 08:47; Start 03/04/17 at 09:00 Non-Formulary Medication 300 mg DAILY PO Last administered on 03/07/17 08:47; Start 03/04/17 at 09:00 Oxycodone HCl (Roxicodone) 40 mg PRN Q4HRS PRN PO SEVERE PAIN Last administered on 03/07/17 21:25; Start 03/03/17 at 22:30 Non-Formulary Medication 4.5 gm Q8HRS IV ; Start 03/03/17 at 22:00; Status UNV Piperacillin Sod/ Tazobactam Sod 4.5 gm/Sodium Chloride 100 ml @ 200 mls/hr Q8HRS IV Last administered on 03/08/17 04:58; Start 03/03/17 at 23:00 Alprazolam (Xanax) 0.5 mg PRN Q6HRS PRN PO ANXIETY / AGITATION Last administered on 03/07/17 21:22; Start 03/03/17 at 23:30 Methadone HCl (Dolophine) 20 mg 1X ONCE PO Last administered on 03/04/17 00: 00; Start 03/04/17 at 00:00; Stop 03/04/17 at 00:01; Status DC Methadone HCl (Dolophine) 20 mg 1X ONCE PO Last administered on 03/04/17 08: 25; Start 03/04/17 at 08:30; Stop 03/04/17 at 08:31; Status DC Micafungin Sodium 100 mg/Dextrose 100 ml @ 100 mls/hr Q24H IV Last administered on 03/04/17 12:37; Start 03/04/17 at 12:00; Stop 03/05/17 at 09:00 ; Status DC Vancomycin HCl (Vanco Per Pharmacy) 1 each PRN DAILY PRN MC SEE COMMENTS Last administered on 03/07/17 09:58; Start 03/04/17 at 11:15; Stop 03/08/17 at 08:06 ; Status DC Vancomycin HCl 2 gm/Sodium Chloride 500 ml @ 250 mls/hr 1X ONCE IV Last administered on 03/04/17 12:28; Start 03/04/17 at 12:00; Stop 03/04/17 at 13:59 ; Status DC Vancomycin HCl 1.75 gm/Sodium Chloride 500 ml @ 250 mls/hr Q8H IV Last administered on 03/08/17 04:58; Start 03/04/17 at 20:00; Stop 03/08/17 at 08:06 ; Status DC Vancomycin HCl 1 each 1X ONCE MC ; Start 03/05/17 at 11:30; Stop 03/05/17 at 11 :31; Status DC Diphenhydramine HCl (Benadryl) 25 mg PRN Q6HRS PRN IVP ITCHING; Start 03/04/17 at 14:15 Insulin Aspart (NovoLOG) 0-5 UNITS TIDWMEALS SQ ; Start 03/04/17 at 17:00 Dextrose (Dextrose 50%-Water Syringe) 12.5 gm PRN Q15MIN PRN IV SEE COMMENTS; Start 03/04/17 at 14:30 Acetaminophen (Tylenol) 500 mg PRN Q4HRS PRN PO MILD PAIN / TEMP Last administered on 03/04/17 20:55; Start 03/04/17 at 15:45 Sincalide 2.4 mcg/ Sodium Chloride 30 ml @ 0 mls/hr 1X ONCE IV Last administered on 03/05/17 11:30; Start 03/05/17 at 11:15; Stop 03/05/17 at 11:16 ; Status DC Lidocaine/Sodium Bicarbonate (Buffered Lidocaine 1%) 20 ml STK-MED ONCE IJ ; Start 03/06/17 at 08:03; Stop 03/06/17 at 08:04; Status DC Active Scripts Active Reported Zosyn 4.5 Gm Pre-Mix Bag (Hkayjueboszv-Uowi-Vxoqcnux,Iso) 4.5 Gm/100 Ml Froz.piggy 4.5 Gm IV Q8HRS Aspirin 325 Mg Tablet 1 Tab PO DAILY Celebrex (Celecoxib) 200 Mg Capsule 1 Cap PO DAILY Oxycodone Hcl 20 Mg Tablet 40 Mg PO PRN Q4-6HRS PRN Ferrous Sulfate 325 Mg Tablet 1 Tab PO DAILY Invokana (Canagliflozin) 300 Mg Tablet 300 Mg PO DAILY Actos (Pioglitazone Hcl) 15 Mg Tablet 30 Mg PO DAILY Metformin Hcl 500 Mg Tablet 500 Mg PO BIDWMEALS Methadone Hcl 5 Mg Tablet 20 Mg PO QID Vitals/I & O Vital Sign - Last 24 Hours 03/07/17 03/07/17 03/07/17 03/07/17 09:49 11:00 15:00 19:10 Temp 98.4 98.5 98.4 98.4 98.5 98.4 Pulse 65 60 58 Resp 16 19 18 20 B/P (MAP) 118/70 (86) 145/88 (107) 149/83 (105) Pulse Ox 96 92 98 97 O2 Delivery Nasal Cannula Room Air Room Air Room Air O2 Flow Rate 2.0 03/07/17 03/07/17 03/08/17 03/08/17 19:45 23:10 03:10 07:00 Temp 98.0 97.9 98.2 98.0 97.9 98.2 Pulse 54 59 55 Resp 18 13 16 B/P (MAP) 144/93 (110) 156/94 (114) 158/82 (107) Pulse Ox 99 97 97 O2 Delivery Nasal Cannula Room Air Room Air Room Air O2 Flow Rate 2.0 03/08/17 07:16 O2 Delivery Nasal Cannula O2 Flow Rate 2.0 Intake and Output 03/07/17 03/07/17 03/08/17 15:00 23:00 07:00 Intake Total 1836 ml 200 ml Balance 1836 ml 200 ml JOHN VALENCIA MD Mar 08, 2017 08:52
[2017-03-08] MEDS: METHADONE 10 MG TABLET. PO SCH ×5 (09:00→21:39)
[2017-03-08] MEDS: metFORMIN 500 MG TABLET PO SCH ×2 (09:36→18:33)
[2017-03-08] MEDS: ASPIRIN 325 MG TABLET PO SCH (09:36)
[2017-03-08] MEDS: PIOGLITAZONE 15 MG TABLET. PO SCH (09:37)
[2017-03-08] MEDS: FERROUS SULFATE 325 MG TABLET. PO SCH (09:37)
[2017-03-08] MEDS: Canagliflozin (Invokana) 300 MG TABLET PO SCH (09:37)
--- NOTE | 2017-03-08 16:31 | PATHOLOGY ---
PATHOLOGY REPORT * * * * * * * * FINAL DIAGNOSIS: Right groin lymph node, needle biopsy: - Reactive changes. See comment. (JPM:rlm; 03/08/2017) COMMENT: Sections of the right groin lymph node needle biopsy reveal several segments of lymph node showing focal crush artifact. The overall lymphoid architecture appears preserved. The lymph node is populated predominantly by small lymphocytes, with focally admixed small numbers of transformed lymphoid cells. Lymphoid follicles with well-developed reactive germinal centers are not identified. The lymphoid sinuses appear preserved. There are scattered foci within the lymph node showing nuclear karyorrhexis and a few neutrophils. There is no atypical large cell lymphoid infiltrate. There is no evidence of metastatic carcinoma. A portion of the specimen is submitted for marker studies by flow cytometry. The specimen has a viability of 99.4%. Lymphocytes comprise 72.2% of total cells. T-cells comprise 29% of lymphoid cells, and show a CD4/CD8 ratio of about 1.8. NK-cells comprise 1% of lymphoid cells. Mature B-cells comprise 70% of lymphoid cells and are polyclonal with a kappa/lambda ratio of 1.0. Granulocytes comprise 19.5% of total cells and are phenotypically mature. There is no immunophenotypic evidence of a lymphoid neoplasm. The findings are consistent with reactive changes. Although there are no RS or Hodgkins cells, we cannot absolutely rule out the possibility of Hodgkins lymphoma in a needle biopsy. Correlate clinically. The case is also examined by Dr. Diggs, who concurs with the diagnosis.. REPORT ELECTRONICALLY SIGNED BY: Meliton Payton M.D. DATE/TIME: 03/08/2017 16:30 * * * * * * * * GROSS PATHOLOGY: Received in formalin labeled "Nico Mijares, right groin lymph node," are several fragmented needle cores of lopez soft tissue ranging from 0.1 to 1.8 cm in length, which are submitted entirely in cassette A1. Multiple slides will be requested. A separate specimen is submitted in RPMI and will be forwarded to [facility] for marker studies by flow cytometry. ([facility]; 03/06/17) INITIAL CPT CODE(S): A; 44843 Professional services performed by [facility] at [facility] [address] [place] [id number] Technical services performed by [employer] at [address] [place] [address], [address], [place] [address]. SPECIMEN(S) RECEIVED: A.Right groin lymph node biopsy CLINICAL HISTORY: Enlarged right groin lymph node PATIENT: NICO MIJARES JR /AGE: 10 1970 (Age: 46) PATIENT #: [id number] ALT CASE #: SPECIMEN COLLECTION DATE: 03/06/2017 SPECIMEN RECEIVED DATE: 03/06/2017 [facility] - [id number] [place] [address] - PHONE: [phone] * * * END OF REPORT * * *
[2017-03-08] MEDS: ACETAMINOPHEN 500 MG TABLET PO PRN (22:48)
[2017-03-09 02:53] VITALS: BP 154/89
[2017-03-09] MEDS: PIPERACILLIN/TAZOBACTAM 4.5 GM in IV NORMAL SALINE 100ML 100 ML IV SCH ×2 (05:29→13:40)
[2017-03-09 07:00] VITALS: BP 168/84
[2017-03-09] MEDS: oxyCODONE IR 5 MG TABLET PO PRN (07:26)
[2017-03-09] MEDS: INSULIN ASPART 300 UNITS/3 ML INSULN.PEN SQ SCH ×2 (08:00→11:26)
--- NOTE | 2017-03-09 08:19 | PDOC ---
GENERAL General: vss and afebrile. awake and alert this am and feels much better. awaiting GI opinion and any direction on elevated lft's prior to dc. will need to go home with picc line for ongoing iv antibiotics as prior to admit. Problems: VITAL SIGNS Vital Signs: Vital Signs Date Time Temp Pulse Resp B/P (MAP) Pulse Ox O2 Delivery O2 Flow Rate FiO2 03/09/17 07:26 16 94 Room Air 03/09/17 02:53 97.7 52 154/89 (110) 97.7 03/08/17 07:16 2.0 I & O I & O Intake and Output 03/09/17 07:00 Intake Total 1380 ml Balance 1380 ml Intake Oral 1380 ml # Voids 2 ALLERGIES Allergies: Allergies Coded Allergies Type Severity Reaction Last Updated Verified ibuprofen Allergy Intermediate urinary retention,swelling 02/07/17 Yes MEDS Medications: Current Medications Medications (Trade) Dose Ordered Sig/[place] Start Time Stop Time Status Last Admin Dose Admin Acetaminophen (Tylenol) 500 mg PRN Q4HRS PRN 03/04/17 15:45 03/08/17 22:48 500 MG Alprazolam (Xanax) 0.5 mg PRN Q6HRS PRN 03/03/17 23:30 03/07/17 21:22 0.5 MG Aspirin (Claudy Aspirin) 325 mg DAILY 03/04/17 09:00 03/08/17 09:36 325 MG Dextrose (Dextrose 50%-Water Syringe) 12.5 gm PRN Q15MIN PRN 03/04/17 14:30 Diphenhydramine HCl (Benadryl) 25 mg PRN Q6HRS PRN 03/04/17 14:15 Ferrous Sulfate (Feosol) 325 mg DAILY 03/04/17 09:00 03/08/17 09:37 325 MG Info (Do NOT chart on this entry -- for MONITORING) 1 each PRN DAILY PRN 03/03/17 16:15 03/05/17 16:14 DC Insulin Aspart (NovoLOG) 0-5 UNITS TIDWMEALS 03/04/17 17:00 Iohexol (Omnipaque 350 Mg/ml) 90 ml 1X ONCE 03/03/17 16:00 03/03/17 16:03 DC 03/03/17 16:30 90 ML Lidocaine/Sodium Bicarbonate (Buffered Lidocaine 1%) 20 ml STK-MED ONCE 03/06/17 08:03 03/06/17 08:04 DC Metformin HCl (Glucophage) 500 mg BIDWMEALS 03/06/17 08:00 03/08/17 18:33 500 MG Methadone HCl (Dolophine) 20 mg 1X ONCE 03/04/17 08:30 03/04/17 08:31 DC 03/04/17 08:25 20 MG Micafungin Sodium 100 mg/Dextrose 100 ml @ 100 mls/hr Q24H 03/04/17 12:00 03/05/17 09:00 DC 03/04/17 12:37 100 MLS/HR Morphine Sulfate 4 mg PRN Q2HR PRN 03/03/17 18:00 03/04/17 17:59 DC 03/04/17 05:55 4 MG Non-Formulary Medication 4.5 gm Q8HRS 03/03/17 22:00 UNV Ondansetron HCl (Zofran) 4 mg PRN Q8HRS PRN 03/03/17 18:00 03/04/17 17:59 DC 03/04/17 08:05 4 MG Oxycodone HCl (Roxicodone) 40 mg PRN Q4HRS PRN 03/03/17 22:30 03/09/17 07:26 40 MG Pioglitazone HCl (Actos) 30 mg DAILY 03/04/17 09:00 03/08/17 09:37 30 MG Piperacillin Sod/ Tazobactam Sod 4.5 gm/Sodium Chloride 100 ml @ 200 mls/hr Q8HRS 03/03/17 23:00 03/09/17 05:29 200 MLS/HR Sincalide 2.4 mcg/ Sodium Chloride 30 ml @ 0 mls/hr 1X ONCE 03/05/17 11:15 03/05/17 11:16 DC 03/05/17 11:30 2.4 MLS/HR Sodium Chloride 1,000 ml @ 1,000 mls/hr 1X ONCE 03/03/17 16:30 03/03/17 17:29 DC 03/03/17 16:55 1,000 MLS/HR Vancomycin HCl 1 each 1X ONCE 03/05/17 11:30 03/05/17 11:31 DC Vancomycin HCl (Vanco Per Pharmacy) 1 each PRN DAILY PRN 03/04/17 11:15 03/08/17 08:06 DC 03/07/17 09:58 1 EACH Vancomycin HCl 1.75 gm/Sodium Chloride 500 ml @ 250 mls/hr Q8H 03/04/17 20:00 03/08/17 08:06 DC 03/08/17 04:58 250 MLS/HR Vancomycin HCl 2 gm/Sodium Chloride 500 ml @ 250 mls/hr 1X ONCE 03/04/17 12:00 03/04/17 13:59 DC 03/04/17 12:28 250 MLS/HR LAB Lab: Laboratory Tests Test 03/08/17 11:27 03/08/17 16:34 03/08/17 21:38 03/09/17 07:34 Glucose (Fingerstick) 118 mg/dL (70-99) 106 mg/dL (70-99) 130 mg/dL (70-99) 102 mg/dL (70-99) SEAN GUERRA MD Mar 09, 2017 08:19
[2017-03-09] MEDS: ASPIRIN 325 MG TABLET PO SCH (08:36)
[2017-03-09] MEDS: Canagliflozin (Invokana) 300 MG TABLET PO SCH (08:36)
[2017-03-09] MEDS: METHADONE 10 MG TABLET. PO SCH ×2 (08:37→13:22)
[2017-03-09] MEDS: FERROUS SULFATE 325 MG TABLET. PO SCH (08:37)
[2017-03-09] MEDS: PIOGLITAZONE 15 MG TABLET. PO SCH (08:37)
[2017-03-09] MEDS: metFORMIN 500 MG TABLET PO SCH (08:37)
--- NOTE | 2017-03-09 09:14 | PDOC ---
PROGRESS NOTES Subjective Subjective c/c - f/u of Generalized lymphadenopathy Objective Objective Vital Signs Date Time Temp Pulse Resp B/P (MAP) Pulse Ox O2 Delivery O2 Flow Rate FiO2 03/09/17 08:39 Room Air 03/09/17 07:26 16 94 03/09/17 07:00 97.7 58 168/84 (112) 97.7 03/08/17 07:16 2.0 Intake and Output 03/09/17 07:00 Intake Total 1380 ml Balance 1380 ml Intake Oral 1380 ml # Voids 2 Physical Exam Heart: Normal S1, Normal S2 General: Alert, Oriented X3 Lungs: Clear to auscultation Neuro: Normal speech Psych/Mental Status: Mental status NL Assessment Assessment Problems Medical Problems: (1) Chest pain Status: Acute Assessment/Plan Impression: 1. Generalized lymphadenopathy 2. Neutrophilic leukocytosis - better 3. Fever 4. Rash 5. Elevated LFTs 6. Recent enterococcal infection of right TKA Plan: I have reviewed his CT scans. Compared to a CT Chest here from 05/2014, there is no significant change in the size of his axillary nodes. Lymphoma certainly is a possibility, hence bx done. - s/p rt inguinal bx by IR 03/06/17 - final path report is neg for lymphoma or sarcoidosis. Flow cytometry neg, I d/w DR Payton. HIV neg. Hep A ab positive. Management per ID. I d/w Dr Lazarus Adams. Ok to d/c home from my point. Call if needed I d/w RN Comment Review of Relevant I have reviewed the following items tod (where applicable) has been applied. Labs Laboratory Tests Test 03/07/17 11:01 03/07/17 16:25 03/07/17 20:47 03/08/17 05:00 Glucose (Fingerstick) 131 mg/dL (70-99) 108 mg/dL (70-99) 96 mg/dL (70-99) White Blood Count 22.7 x10^3/uL (4.0-11.0) Red Blood Count 3.42 x10^6/uL (4.30-5.70) Hemoglobin 10.1 g/dL (13.0-17.5) Hematocrit 30.4 % (39.0-53.0) Mean Corpuscular Volume 89 fL (79-100) Mean Corpuscular Hemoglobin 30 pg (25-35) Mean Corpuscular Hemoglobin Concent 33 g/dL (31-37) Red Cell Distribution Width 15.2 % (11.5-14.5) Platelet Count 324 x10^3/uL (140-400) Neutrophils (%) (Auto) 66 % (31-73) Lymphocytes (%) (Auto) 14 % (24-48) Monocytes (%) (Auto) 6 % (0-9) Eosinophils (%) (Auto) 14 % (0-3) Basophils (%) (Auto) 1 % (0-3) Neutrophils # (Auto) 15.0 x10^3uL (1.8-7.7) Lymphocytes # (Auto) 3.1 x10^3/uL (1.0-4.8) Monocytes # (Auto) 1.3 x10^3/uL (0.0-1.1) Eosinophils # (Auto) 3.1 x10^3/uL (0.0-0.7) Basophils # (Auto) 0.2 x10^3/uL (0.0-0.2) Sodium Level 137 mmol/L (136-145) Potassium Level 3.4 mmol/L (3.5-5.1) Chloride Level 99 mmol/L (98-107) Carbon Dioxide Level 32 mmol/L (21-32) Anion Gap 6 (6-14) Blood Urea Nitrogen 12 mg/dL (8-26) Creatinine 0.9 mg/dL (0.7-1.3) Estimated GFR (Cockcroft-Gault) 90.8 Glucose Level 97 mg/dL (70-99) Calcium Level 9.1 mg/dL (8.5-10.1) Test 03/08/17 07:53 03/08/17 11:27 03/08/17 16:34 03/08/17 21:38 Glucose (Fingerstick) 115 mg/dL (70-99) 118 mg/dL (70-99) 106 mg/dL (70-99) 130 mg/dL (70-99) Test 03/09/17 07:34 Glucose (Fingerstick) 102 mg/dL (70-99) Laboratory Tests Test 03/08/17 11:27 03/08/17 16:34 03/08/17 21:38 03/09/17 07:34 Glucose (Fingerstick) 118 mg/dL (70-99) 106 mg/dL (70-99) 130 mg/dL (70-99) 102 mg/dL (70-99) Microbiology 03/03/17 Blood Culture - Final, Complete NO GROWTH AFTER 5 DAYS Medications Current Medications Morphine Sulfate 4 mg PRN Q15MIN PRN IV/SQ PAIN GREATER THAN 3/10 Last administered on 03/03/17 17:00; Start 03/03/17 at 15:00; Stop 03/04/17 at 14:59 ; Status DC Ondansetron HCl (Zofran) 4 mg 1X ONCE IV Last administered on 03/03/17 15:20 ; Start 03/03/17 at 15:00; Stop 03/03/17 at 15:01; Status DC Sodium Chloride 1,000 ml @ 1,000 mls/hr 1X ONCE IV Last administered on 15:20; Start 03/03/17 at 15:30; Stop 03/03/17 at 16:29; Status DC Iohexol (Omnipaque 350 Mg/ml) 90 ml 1X ONCE IV Last administered on 03/03/17 16:30; Start 03/03/17 at 16:00; Stop 03/03/17 at 16:03; Status DC Info (Do NOT chart on this entry -- for MONITORING) 1 each PRN DAILY PRN MC SEE COMMENTS; Start 03/03/17 at 16:15; Stop 03/05/17 at 16:14; Status DC Sodium Chloride 1,000 ml @ 1,000 mls/hr 1X ONCE IV Last administered on 16:55; Start 03/03/17 at 16:30; Stop 03/03/17 at 17:29; Status DC Ondansetron HCl (Zofran) 4 mg PRN Q8HRS PRN IV NAUSEA/VOMITING Last administered on 03/04/17 08:05; Start 03/03/17 at 18:00; Stop 03/04/17 at 17:59 ; Status DC Morphine Sulfate 4 mg PRN Q2HR PRN IV PAIN Last administered on 03/04/17 05:55 ; Start 03/03/17 at 18:00; Stop 03/04/17 at 17:59; Status DC Aspirin (Claudy Aspirin) 325 mg DAILY PO Last administered on 03/09/17 08:36; Start 03/04/17 at 09:00 Ferrous Sulfate (Feosol) 325 mg DAILY PO Last administered on 03/09/17 08:37; Start 03/04/17 at 09:00 Metformin HCl (Glucophage) 500 mg BIDWMEALS PO Last administered on 03/09/17 08:37; Start 03/06/17 at 08:00 Methadone HCl (Dolophine) 20 mg QID PO Last administered on 03/09/17 08:37; Start 03/04/17 at 09:00 Pioglitazone HCl (Actos) 30 mg DAILY PO Last administered on 03/09/17 08:37; Start 03/04/17 at 09:00 Non-Formulary Medication 300 mg DAILY PO Last administered on 03/09/17 08:36; Start 03/04/17 at 09:00 Oxycodone HCl (Roxicodone) 40 mg PRN Q4HRS PRN PO SEVERE PAIN Last administered on 03/09/17 07:26; Start 03/03/17 at 22:30 Non-Formulary Medication 4.5 gm Q8HRS IV ; Start 03/03/17 at 22:00; Status UNV Piperacillin Sod/ Tazobactam Sod 4.5 gm/Sodium Chloride 100 ml @ 200 mls/hr Q8HRS IV Last administered on 03/09/17 05:29; Start 03/03/17 at 23:00 Alprazolam (Xanax) 0.5 mg PRN Q6HRS PRN PO ANXIETY / AGITATION Last administered on 03/07/17 21:22; Start 03/03/17 at 23:30 Methadone HCl (Dolophine) 20 mg 1X ONCE PO Last administered on 03/04/17 00: 00; Start 03/04/17 at 00:00; Stop 03/04/17 at 00:01; Status DC Methadone HCl (Dolophine) 20 mg 1X ONCE PO Last administered on 03/04/17 08: 25; Start 03/04/17 at 08:30; Stop 03/04/17 at 08:31; Status DC Micafungin Sodium 100 mg/Dextrose 100 ml @ 100 mls/hr Q24H IV Last administered on 03/04/17 12:37; Start 03/04/17 at 12:00; Stop 03/05/17 at 09:00 ; Status DC Vancomycin HCl (Vanco Per Pharmacy) 1 each PRN DAILY PRN MC SEE COMMENTS Last administered on 03/07/17 09:58; Start 03/04/17 at 11:15; Stop 03/08/17 at 08:06 ; Status DC Vancomycin HCl 2 gm/Sodium Chloride 500 ml @ 250 mls/hr 1X ONCE IV Last administered on 03/04/17 12:28; Start 03/04/17 at 12:00; Stop 03/04/17 at 13:59 ; Status DC Vancomycin HCl 1.75 gm/Sodium Chloride 500 ml @ 250 mls/hr Q8H IV Last administered on 03/08/17 04:58; Start 03/04/17 at 20:00; Stop 03/08/17 at 08:06 ; Status DC Vancomycin HCl 1 each 1X ONCE MC ; Start 03/05/17 at 11:30; Stop 03/05/17 at 11 :31; Status DC Diphenhydramine HCl (Benadryl) 25 mg PRN Q6HRS PRN IVP ITCHING; Start 03/04/17 at 14:15 Insulin Aspart (NovoLOG) 0-5 UNITS TIDWMEALS SQ ; Start 03/04/17 at 17:00 Dextrose (Dextrose 50%-Water Syringe) 12.5 gm PRN Q15MIN PRN IV SEE COMMENTS; Start 03/04/17 at 14:30 Acetaminophen (Tylenol) 500 mg PRN Q4HRS PRN PO MILD PAIN / TEMP Last administered on 03/08/17 22:48; Start 03/04/17 at 15:45 Sincalide 2.4 mcg/ Sodium Chloride 30 ml @ 0 mls/hr 1X ONCE IV Last administered on 03/05/17 11:30; Start 03/05/17 at 11:15; Stop 03/05/17 at 11:16 ; Status DC Lidocaine/Sodium Bicarbonate (Buffered Lidocaine 1%) 20 ml STK-MED ONCE IJ ; Start 03/06/17 at 08:03; Stop 03/06/17 at 08:04; Status DC Active Scripts Active Reported Zosyn 4.5 Gm Pre-Mix Bag (Yntblcdavfoi-Abdz-Wyaoonra,Iso) 4.5 Gm/100 Ml Froz.piggy 4.5 Gm IV Q8HRS Aspirin 325 Mg Tablet 1 Tab PO DAILY Celebrex (Celecoxib) 200 Mg Capsule 1 Cap PO DAILY Oxycodone Hcl 20 Mg Tablet 40 Mg PO PRN Q4-6HRS PRN Ferrous Sulfate 325 Mg Tablet 1 Tab PO DAILY Invokana (Canagliflozin) 300 Mg Tablet 300 Mg PO DAILY Actos (Pioglitazone Hcl) 15 Mg Tablet 30 Mg PO DAILY Metformin Hcl 500 Mg Tablet 500 Mg PO BIDWMEALS Methadone Hcl 5 Mg Tablet 20 Mg PO QID Vitals/I & O Vital Sign - Last 24 Hours 03/08/17 03/08/17 03/08/17 03/08/17 11:00 15:00 16:49 19:40 Temp 97.9 98.5 97.7 97.7 97.9 98.5 97.7 97.7 Pulse 63 60 61 52 Resp 16 18 18 18 B/P (MAP) 162/86 (111) 145/88 (107) 143/84 (103) 184/94 (124) Pulse Ox 98 98 94 97 O2 Delivery Room Air Room Air Room Air Room Air 03/08/17 03/08/17 03/09/17 03/09/17 19:40 22:36 02:53 07:00 Temp 97.5 97.7 97.7 97.5 97.7 97.7 Pulse 69 52 58 Resp 18 18 18 B/P (MAP) 153/81 (105) 154/89 (110) 168/84 (112) Pulse Ox 96 97 98 O2 Delivery Room Air Room Air Room Air Nasal Cannula 03/09/17 03/09/17 07:26 08:39 Resp 16 Pulse Ox 94 O2 Delivery Room Air Room Air Intake and Output 03/08/17 03/08/17 03/09/17 15:00 23:00 07:00 Intake Total 900 ml 480 ml Balance 900 ml 480 ml JOHN VALENCIA MD Mar 09, 2017 09:13
--- NOTE | 2017-03-09 09:30 | PDOC2 ---
GI CONSULT Reason For Consult: Elevated liver enzymes HPI: HPI: 46 y/o admitted w/ sepsis, recent h/o right total knee replacement complicated by infection. Doing better, pt very anxious to DC. Imaging noted adenopathy, had right inguinal biopsy (path w/ reactive changes). Has had elevated LFTs; AST in 200s, ALT 70s-90s, Alk Phos rising from 300s to 500s. Bili has been normal. Last LFTs on 03/07. (Note normal LFTs in 2013.) Hepatitis A reactive, IgM neg. Has fatty liver. Surgery saw for cholelithiasis w/ low GB EF, did not recommend cholecystectomy. Tells me has had elevated liver enzymes before, tries to avoid Tylenol because of this. Denies abd pain, n/v, reflux/heartburn , diarrhea, constipation, hematochezia, melena, change in appetite, weight changes, jaundice. Believes had "upper GI" once, can't remember why or what it showed. No previous colonoscopy. Asks repeatedly if he can leave today and follow-up as an outpt. Wants to get home to 5 kids, the youngest of which is 3. PMH: PMH: HTN, DM, anxiety/depression, cholelithiasis, fatty liver, hypothyroidism, chronic pyelonephritis, cystocopy, partial nephrectomy, splenectomy, right inguinal biopsy (adenopathy), right total knee replacement, wrist surgery, right shoulder surgery, tonsillectomy FH: Family History: No pertinent hx (denies GI cancers, liver disease) Social History: Smoke: Quit ALCOHOL: rare Drugs: Marijuana, Other (on methadone) ROS: GEN: Denies fevers, chills, sweats HEENT: Denies blurred vision, sore throat CV: Denies chest pain RESP: Denies shortness of air, cough GI: Per HPI : Denies hematuria, dysuria ENDO: Denies weight changes NEURO: Denies confusion, dizziness MSK: +knee pain SKIN: Denies jaundice, pruritus Vitals: Vitals: Vital Signs Date Time Temp Pulse Resp B/P (MAP) Pulse Ox O2 Delivery O2 Flow Rate FiO2 03/09/17 08:39 Room Air 03/09/17 07:26 16 94 03/09/17 07:00 97.7 58 168/84 (112) 97.7 03/08/17 07:16 2.0 Labs: Labs: Laboratory Tests Test 03/08/17 11:27 03/08/17 16:34 03/08/17 21:38 03/09/17 07:34 Glucose (Fingerstick) 118 mg/dL (70-99) 106 mg/dL (70-99) 130 mg/dL (70-99) 102 mg/dL (70-99) Allergies: Coded Allergies: ibuprofen (Verified Allergy, Intermediate, urinary retention,swelling, ) MD Hairston Toradol and Celebrex Medications: Please see EMR. Imaging: Imaging: CXR 03/03/17 Impression: Minimal atelectasis or infiltrate in the left lung base. Chest/A/P CTA 03/03/17 IMPRESSION: No abdominal aortic aneurysm or dissection is seen. Abdominal and pelvic lymphadenopathy as discussed above. Therefore, the axillary lymphadenopathy may represent the same disease process such as lymphoma. Distended gallbladder. 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 Chronic pyelonephritis of the left kidney. RUQ US 03/04/17 Impression: 1. Cholelithiasis and gallbladder distention. No gallbladder wall thickening or pericholecystic fluid. If strong clinical suspicion for acute cholecystitis, consider hepatobiliary scintigraphy. 2. Mild fatty infiltration of an enlarged liver. HIDA 03/05/17 IMPRESSION: 1. Normal radionuclide hepatobiliary scan. 2. Low gallbladder ejection fraction of 23%. PE: GEN: NAD, up to chair, dressed HEENT: Atraumatic, PERRLA LUNGS: clear anteriorly HEART: bradycardia ABD: NABS, S/ND/NT EXTREMITY: No edema SKIN: No rashes, no jaundice NEURO/PSYCH: A & O 3 A/P: A/P: Sepsis s/p right knee surgery -to DC on IV atbx Elevated LFTs, fatty liver -surgery has seen, cholelithiasis w/ low GB EF, cholecystectomy not recommended -labs as above, new this admission -past Hep A infection Adenopathy s/p right inguinal biopsy CRC screen -no previous colonoscopy, average risk -- Reviewed w/ Dr. England - likely steatohepatitis (h/o fatty liver, DM). Alk Phos probably related to bone. Consider vit E. Okay to DC. JOHNNY MAYO Mar 09, 2017 09:30
--- NOTE | 2017-03-09 09:56 | PDOC ---
Infectious Disease Note Subjective Subjective pt feeling better ROS ROS GEN: Denies fevers, chills, sweats HEENT: Denies blurred vision, sore throat CV: Denies chest pain RESP: Denies shortness of air, cough GI: Denies n/v/d NEURO: Denies confusion, dizziness MSK: Denies weakness, joint pain/swelling Vital Sign Vital Signs Vital Signs Date Time Temp Pulse Resp B/P (MAP) Pulse Ox O2 Delivery O2 Flow Rate FiO2 03/09/17 08:39 Room Air 03/09/17 07:26 16 94 03/09/17 07:00 97.7 58 168/84 (112) 97.7 03/08/17 07:16 2.0 Physical Exam PHYSICAL EXAM GENERAL: NAD, Alert HEENT: PERRL, OC/OP NECK: Supple, no JVD, no LN LUNGS: Clear HEART: S1S2, no gallop, no murmur ABD: Soft, NT, no organomegaly, no rebound EXT: No edema, no cyanosis ENDLESS TR[employer]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 associated with line,, culture neg Lactic acidosis Fever Rash Transaminitis Lymphadenopathy Leukocytosis, h/o splenectomy h/o infected right TKA s/p I and D, poly exchange, 02/07/2017. Intra-op cultures no growth, had been on abx prior to surgery h/o Enterococcus-PNC sensitive from 02/01, swab cx of wound Diabetes Hep A total antibody positive, Ig M neg Plan Plan of Care cont zosyn , pt can be d/cristina and f/u with me in 2 wks ( pt had enterococcus superficial culture from knee, OP culture neg ) LN biopsy neg HELEN RODARTE MD Mar 09, 2017 09:55
[2017-03-09 11:00] VITALS: BP 144/91
--- NOTE | 2017-03-09 18:15 | DS ---
DATE OF DISCHARGE: 03/09/2017 PRIMARY DIAGNOSIS: Sepsis. ADDITIONAL DIAGNOSES: Lactic acidosis, fever, rash, transaminitis, lymphadenopathy, leukocytosis, status post splenectomy, infected right total knee replacement, diabetes mellitus. CHIEF COMPLAINT AND HISTORY OF PRESENT ILLNESS: This 46-year-old white male was admitted through the Emergency Room with fevers, chills, sweats, feeling horrible, with leukocytosis with a white count of 22,000, elevated liver function test and a lactic acid that was elevated. SUMMARY OF STAY: The patient was admitted, treated with broad-spectrum antibiotics throughout the stay. Cultures were negative throughout the stay. ID followed with antibiotics. They maintained him at the time of discharge on his Zosyn, which he was getting prior to admission for the Enterococcus infected right total knee replacement. Sugars were good during the stay. His leukocytosis increased through the stay and then started to drop towards the end, with his left shift becoming better at that time. This transaminitis as well as alkaline phosphatase continued to rise throughout the stay. GI saw him and felt this could be followed as an outpatient lab, as he had inpatient workup including a CT which showed lymphadenopathy, ultrasound which showed distended gallbladder but no wall thickening, and a HIDA scan that was reported out as no obstruction. Surgery also saw him, did not feel he needed surgery, did not feel this was coming from the gallbladder. He did have a lymph node biopsy done during the stay because of diffuse lymphadenopathy which showed only reactive changes. He was hepatitis A positive, but hepatitis B, C and HIV negative during the stay. He was doing better; by the time of discharge was awake and alert, felt much better, and it was felt he could be dismissed to resume his regular home medicines which include the Zosyn he was getting IV prior to admission. DISPOSITION: The patient is discharged to home. DIET: Diabetic diet. ACTIVITY: As tolerated. FOLLOWUP: In office in 1-2 weeks. DISCHARGE MEDICATIONS: Listed on the med rec and have been addressed. SEAN GUERRA MD DR: HERMAN/lavell JOB#: [id number] / [id number]
== END 2017-03-09 14:30 | disposition home or self-care (01) | DRG 515 ==
LOC: ER 14:40 → 2 SOUTH 18:03 → 5 NORTH 03-08 15:54
PROVIDERS: ADMIT Family Medicine; ATTEND Family Medicine
PROC: 07BH3ZX Excision of Right Inguinal Lymphatic, Percutaneous Approach, Diagnostic (ICD-10-PCS; principal; 2017-03-06)
DX: T84.53XA Infection and inflammatory reaction due to internal right knee prosthesis, initial encounter (principal); A41.9 Sepsis, unspecified organism; G92 Toxic encephalopathy; E11.9 Type 2 diabetes mellitus without complications; F32.9 Major depressive disorder, single episode, unspecified; I10 Essential (primary) hypertension; B95.2 Enterococcus as the cause of diseases classified elsewhere; E03.9 Hypothyroidism, unspecified; F41.9 Anxiety disorder, unspecified; K21.9 Gastro-esophageal reflux disease without esophagitis; K80.20 Calculus of gallbladder without cholecystitis without obstruction; K82.8 Other specified diseases of gallbladder; Z82.49 Family history of ischemic heart disease and other diseases of the circulatory system; Z96.651 Presence of right artificial knee joint; G56.00 Carpal tunnel syndrome, unspecified upper limb; Y83.1 Surgical operation with implant of artificial internal device as the cause of abnormal reaction of the patient, or of later complication, without mention of misadventure at the time of the procedure; Z88.8 Allergy status to other drugs, medicaments and biological substances; Z90.5 Acquired absence of kidney; Z87.891 Personal history of nicotine dependence
CPT/HCPCS: 36415; 38505; 71010; 71275; 74174; 76705; 76942; 78226; 80048; 80053; 80076; 80202; 80307; 81001; 82553; 82962; 83605; 83690; 83735; 83880; 84443; 84484; 85007; 85025; 85027; 85610; 85651; 86701; 86702; 86703; 86704; 86706; 86708; 86709; 86803; 87040; 87340; 87341; 87535; 88184; 88185; 88305; 88307; 93005; 96361; 96374; 96375; A9537; J1815; J2248; J2270; J2405; J2543; J2805; J3370; J7030; J7040; Q9967; 99285-25; G0479

== ENCOUNTER 2020-06-12 02:38 | Emergency (ER) | payer MEDICARE, OTHER ==
[~2020-06-12] VITALS: Ht 190.5 cm; Wt 145.5 kg
[~2020-06-12 02:38] MED LIST changes: -FERR-26 PO; +FERR325T14 PO; +METF500T16 PO; -METF500T4 PO; -OXYC15TA PO; +OXYC15TA3 PO; -PANT40TA5 PO; +PANT40TA77 PO; +PIPE4.5F2 IV
[2020-06-12] MEDS ORDERED: LIDOCAINE 2%/EPI 1:100,000 20 ML VIAL. INJ ONE (03:15)
--- NOTE | 2020-06-12 03:33 | PHYS DOC ---
Past Medical History Past Medical History: Diabetes-Type II, Other Additional Past Medical Histor: chronic knee & hand pain Past Surgical History: Tonsillectomy, Other Additional Past Surgical Histo: multiple orthopedic surgeries, splenectomy, eye surgery Smoking Status: Current Every Day Smoker Alcohol Use: None Drug Use: None General Adult EDM: Chief Complaint: MECHANICAL FALL HPI: HPI: Patient is a 50 year old male who presents with laceration on left forehead after falling from a recliner about an hour ago. Pt was sleeping and woke up while he was falling forward and hit his head on the wooden coffee table. Pt dressed the wound and came to the ED. Pt reports extreme pain and profuse bleeding. Pt does not report loss of consciousness. Pt denies neck pain or back pain. Pt denies any vision changes or numbness or tingling. Pt states that he is up to date on tetanus. Review of Systems: Review of Systems: Constitutional: Denies fever or chills Eyes: Denies redness or eye pain HENT: Denies nasal congestion or sore throat Respiratory: Denies cough or shortness of breath Cardiovascular: Denies chest pain or palpitations GI: Denies abdominal pain, nausea, or vomiting : Denies dysuria or hematuria Musculoskeletal: Denies back pain or joint pain Integument: Denies rash, endorses facial laceration Neurologic: Denies headache, focal weakness or sensory changes Complete systems were reviewed and found to be within normal limits, except as documented in this note. Current Medications: Current Medications Medications (Trade) Dose Ordered Sig/[facility] Start Time Stop Time Status Last Admin Dose Admin Lidocaine/ Epinephrine (LIDOCAINE 2%-EPI 1:100,000 multi-dose) 20 ml 1X ONCE 06/12/20 03:15 06/12/20 03:16 DC 06/12/20 03:15 20 ML Allergies: Allergies: Allergies Coded Allergies Type Severity Reaction Last Updated Verified ibuprofen Allergy Intermediate urinary retention,swelling 02/07/17 Yes Physical Exam: PE: Constitutional: Well developed, well nourished, no acute distress, non-toxic appearance HENT: Normocephalic, atraumatic Eyes: PERRL, EOMI, conjunctiva normal, no discharge Neck: Normal range of motion, no tenderness, supple Lungs & Thorax: No respiratory distress, equal chest rise and fall Abdomen: Soft, no tenderness Skin: Warm, dry, no erythema, no rash, 8cm laceration on left forehead with profuse bleeding, no debris noted in wound Back: No tenderness, no CVA tenderness Extremities: No tenderness, ROM intact, no edema Neurologic: Alert and oriented X 3, normal motor function, normal sensory function, no focal deficits noted Psychologic: Affect normal, judgment normal Current Patient Data: Vital Signs: Vital Signs Date Time Temp Pulse Resp B/P (MAP) Pulse Ox O2 Delivery O2 Flow Rate FiO2 06/12/20 02:58 98.5 108 20 172/105 (127) 98 Room Air 98.5 EKG: EKG: [] Radiology/Procedures: Radiology/Procedures: [] Course & Med Decision Making: Course & Med Decision Making 50 yo male pt presents with left lateral forehead laceration after a fall from his recliner. Pt did hit his head on a wooden coffee table. Pts laceration was sutured closed after proper irrigation. Patient stable for discharge with outpatient follow-up with PCP. Discussed findings and plan with patient, who acknowledges understanding and agreement. Vanna Disclaimer: Vanna Disclaimer: This electronic medical record was generated, in whole or in part, using a voice recognition dictation system. Laceration/Wound Repair Laceration/Wound Repair : Wound Location: face Wound's Depth, Shape: superficial, linear Wound Explored: clean Anesthesia: Lidocaine w/ Epi Volume Anesthetic (ccs): 210 Wound Debrided: minimal Wound Repaired With: sutures Suture Size/Type: 6:0 Sterile Dressing Applied?: Yes Progress Verbal consent obtained. Time out performed. Hand hygiene utilized. Wound cleaned with ChloraPrep. Anesthesia obtained via a 25-gauge hypodermic needle with 14 mL's of lidocaine 2% with epinephrine. Copious irrigation performed. Wound well approximated with sutures. Patient tolerated procedure well and without difficulty. Empiric antibiotic ointment applied prior to sterile d ressing. Departure Departure Impression: Primary Impression: Laceration of forehead Qualified Codes: S01.81XA - Laceration without foreign body of other part of head, initial encounter Disposition: 01 DC HOME SELF CARE/HOMELESS Condition: STABLE Referrals: NO PCP (PCP) Patient Instructions: Facial Laceration, [id number] Additional Instructions: Do not soak your wound. You may shower. Clean wound daily with soap and water. Change dressing 2 times daily. Use over the counter antibiotic ointment with each dressing change. Sutures need to be removed in 5 days. Present to your family doctor or local urgent care for removal. You may also present to the ED but it will be an leonor tional visit/charge. After suture removal you may use Vitamin E ointment to soften the wound and prevent scarring. Use [id number] Tylenol for pain or discomfort. NAVDEEP RUIZ DO Jun 12, 2020 03:33
[2020-06-12] MEDS ORDERED: NEOMY/BACITR/POLYMYXIN OINT PACKET. TP ONE (03:45)
[2020-06-12 03:48] VITALS: BP 136/63
== END 2020-06-12 03:54 | disposition home or self-care (01) ==
LOC: ER 02:38
DX: S01.81XA Laceration without foreign body of other part of head, initial encounter (principal); E11.9 Type 2 diabetes mellitus without complications; F17.200 Nicotine dependence, unspecified, uncomplicated; G89.29 Other chronic pain; Z98.890 Other specified postprocedural states; Z90.89 Acquired absence of other organs; Z88.8 Allergy status to other drugs, medicaments and biological substances; W18.09XA Striking against other object with subsequent fall, initial encounter; Y93.89 Activity, other specified; Y92.89 Other specified places as the place of occurrence of the external cause; Y99.8 Other external cause status
CPT/HCPCS: 12015; 99284; J3490

== ENCOUNTER → 2020-07-02 | Emergency (ER) | payer MEDICARE, OTHER ==
[~2020-07-02] VITALS: Ht 188 cm; Wt 145.0 kg
[~2020-07-02] MED LIST changes: +DIPH,PERTUSS(ACELL),TET VAC/PF 0.5 ML SYRINGE. VAX IM ONE; +HYDROcodone/APAP 5/325MG 1 TAB TABLET PO ONE; +HYDROmorphone 2 MG/ML VIAL IVP ONE; +LIDOCAINE 1% Multi-Dose 20 ML VIAL. INJ ONE; +LIDOCAINE 1% PF 2 ML VIAL. INJ ONE; +MORPHINE SULFATE 4 MG/ML VIAL. IV ONE; +ceFAZolin SODIUM IV Push 1 GM VIAL. IVP ONE
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
[2020-07-02 16:33] VITALS: BP 147/70
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
== END ==
LOC: ER 13:55
DX: S02.31XA Fracture of orbital floor, right side, initial encounter for closed fracture (principal); R11.0 Nausea; R42 Dizziness and giddiness; E11.9 Type 2 diabetes mellitus without complications; F17.200 Nicotine dependence, unspecified, uncomplicated; Z88.8 Allergy status to other drugs, medicaments and biological substances; Z90.89 Acquired absence of other organs; Z98.890 Other specified postprocedural states; Y08.89XA Assault by other specified means, initial encounter; Y93.89 Activity, other specified; Y92.89 Other specified places as the place of occurrence of the external cause; Y99.8 Other external cause status
CPT/HCPCS: 70450; 70486; 90471; 90715; 96372; 96374; 96375; 99285; J0690; J1170; J3490